=== PATIENT | male | born 1930 | race Caucasian/White ===

== ENCOUNTER 2016-05-22 16:45 | Emergency (ER) | payer MEDICARE, BC ==
[2016-05-22 20:16] LABS: Hematocrit 36 % (42-52); Mean Corpuscular HGB Conc 34 g/dl (31-36); Mean Corpuscular Hemoglobin 29 pg (27-31); Mean Corpuscular Volume 88 fL (80-94); Mean Platelet Volume 8 um3 (7.4-10.4); Red Blood Count 4.07 10^6/ul (4.0-5.4); Red Cell Distribution Width 15 % (10.5-15); White Blood Count 6.9 10^3/ul (3.5-10.8)
--- NOTE | 2016-05-22 20:26 | RAD ---
Indication: CHF. 2 views of the chest are reviewed. Tortuous descending aorta is noted. Heart is of normal size and configuration. Lung reyes appear hyperinflated. No alveolar consolidation is noted. IMPRESSION: Hyperinflated lung reyes with bibasilar atelectasis.
[2016-05-22 20:28] LABS: Albumin 3.8 g/dL (3.2-5.2); BUN/Creatinine Ratio 21.7 (8-20); Calcium 8.9 mg/dL (8.6-10.3); EGFR African American 35.5 (>60); EGFR Non-African American 27.6 (>60); Potassium 5.3 mmol/L (3.5-5.0); Total Bilirubin 0.8 mg/dL (0.2-1.0); Total Protein 6.8 g/dL (6.4-8.9)
[2016-05-22 20:30] LABS: Troponin I 0.03 ng/mL (<0.04)
[2016-05-22 21:48] VITALS: BP 120/71
--- NOTE | 2016-05-22 22:52 | ED ---
Srinivasan Noguera Adam, scribed for Shayan Pro MD on 05/22/16 at 1944 . Lower Extremity - HPI Summary HPI Summary: Pt is an 86 year old male presenting with worsening edema in both lower extremities. Pt's family consulted with Dr. Denney at a regular appt today who was concerned about possible edema in the pt's lungs as well. Pt is on Lasix. He sleeps with two pillows and has not changed his sleeping position recently. The staff at his assisted living facility has noticed that he sometimes wakes up and moves from the bed to go sit in a chair. Pt denies any SOB. PMHx of dementia and mitral valve prolapse. - History of Current Complaint Chief Complaint: EDExtremityLower Stated Complaint: ANKLE SWELLING Time Seen by Provider: 05/22/16 19:25 Hx Obtained From: Patient Onset/Duration: Still Present Severity Initially: Moderate Severity Currently: Moderate Timing: Constant Location: Is Discrete @ - BLE edema Associated Signs And Symptoms: Positive: Negative Aggravating Factor(s): Nothing Alleviating Factor(s): Nothing Able to Bear Weight: Yes - Allergies/Home Medications Allergies/Adverse Reactions: Allergies Allergy/AdvReac Type Severity Reaction Status Date / Time No Known Allergies Allergy Verified 02/25/14 15:26 PMH/Surg Hx/FS Hx/Imm Hx Endocrine/Hematology History: Reports: Hx Anemia Denies: Hx Diabetes Cardiovascular History: Reports: Hx Congestive Heart Failure, Hx Hypercholesterolemia, Hx Hypertension, Hx Valvular Heart Disease - mitral valve dx, Other Cardiovascular Problems/Disorders Respiratory History: Reports: Hx Pleural Effusion GI History: Reports: Hx Gastroesophageal Reflux Disease History: Reports: Hx Benign Prostatic Hyperplasia Musculoskeletal History: Reports: Hx Arthritis, Hx Gout Sensory History: Reports: Hx Contacts or Glasses Opthamlomology History: Reports: Hx Contacts or Glasses Neurological History: Reports: Hx Dementia - Surgical History Surgery Procedure, Year, and Place: right knee replaced - Immunization History Date of Tetanus Vaccine: Unk Date of Influenza Vaccine: Unk Infectious Disease History: No Infectious Disease History: Denies: Traveled Outside the [place] in Last 30 Days - Family History Known Family History: Positive: Unknown - Pt has dementia - Social History Occupation: Retired Lives: Assisted Living Alcohol Use: Occasionally Hx Substance Use: No Substance Use Type: Reports: None Hx Tobacco Use: Yes Smoking Status (MU): Former Smoker Type: Cigarettes Length of Time of Smoking/Using Tobacco: 30 years. Have You Smoked in the Last Year: No Review of Systems Constitutional: Negative Negative: Fever Negative: Shortness Of Breath Positive: Edema - BLE All Other Systems Reviewed And Are Negative: Yes Physical Exam - Summary Physical Exam Summary: General: Comfortable, pleasant, alert, jovial. HEENT: Moist mucosa, STORMY. Neck: Soft, supple, no adenopathy, no edema, no JVD. Heart: No murmurs, rubs, or gallops. Lungs: Good air movement throughout, no rales, scattered rhonchi. Abdominal: Soft, flat, nontender. Extremities: Pitting edema up to mid cruz, no calf tenderness, calves are soft. Neuro: Alert and oriented x 3. Psych: Logical, coherent. Triage Information Reviewed: Yes Vital Signs On Initial Exam: Initial Vitals Temp Pulse Resp BP Pulse Ox 98 F 35 18 145/44 95 05/22/16 17:37 05/22/16 17:37 05/22/16 17:37 05/22/16 17:37 05/22/16 17:37 Vital Signs Reviewed: Yes Diagnostics - Vital Signs Vital Signs Temp Pulse Resp BP Pulse Ox 05/22/16 17:37 98 F 35 18 145/44 95 - Laboratory Lab Results: Lab Results 05/22/16 05/22/16 05/22/16 Range/Units 20:00 20:00 20:00 WBC 6.9 (3.5-10.8) 10^3/ul RBC 4.07 (4.0-5.4) 10^6/ul Hgb 12.0 L (14.0-18.0) g/dl Hct 36 L (42-52) % MCV 88 (80-94) fL MCH 29 (27-31) pg MCHC 34 (31-36) g/dl RDW 15 (10.5-15) % Plt Count 151 (150-450) 10^3/ul MPV 8 (7.4-10.4) um3 Neut % (Auto) 83.0 (38-83) % Lymph % (Auto) 8.2 L (25-47) % [place] % (Auto) 6.8 (1-9) % Eos % (Auto) 1.5 (0-6) % Baso % (Auto) 0.5 (0-2) % Absolute Neuts (auto) 5.8 (1.5-7.7) 10^3/ul Absolute Lymphs (auto) 0.6 L (1.0-4.8) 10^3/ul Absolute Monos (auto) 0.5 (0-0.8) 10^3/ul Absolute Eos (auto) 0.1 (0-0.6) 10^3/ul Absolute Basos (auto) 0 (0-0.2) 10^3/ul Absolute Nucleated RBC 0 10^3/ul Nucleated RBC % 0 Sodium 132 L (133-145) mmol/L Potassium 5.3 H (3.5-5.0) mmol/L Chloride 97 L (101-111) mmol/L Carbon Dioxide 27 (22-32) mmol/L Anion Gap 8 (2-11) mmol/L BUN 49 H (6-24) mg/dL Creatinine 2.26 H (0.67-1.17) mg/dL Est GFR ( Amer) 35.5 (>60) Est GFR (Non-Af Amer) 27.6 (>60) BUN/Creatinine Ratio 21.7 H (8-20) Glucose 154 H (70-100) mg/dL Calcium 8.9 (8.6-10.3) mg/dL Total Bilirubin 0.80 (0.2-1.0) mg/dL AST 16 (13-39) U/L ALT 15 (7-52) U/L Alkaline Phosphatase 92 (34-104) U/L Troponin I 0.03 (<0.04) ng/mL B-Natriuretic Peptide 384 H ( - 100) pg/mL Total Protein 6.8 (6.4-8.9) g/dL Albumin 3.8 (3.2-5.2) g/dL Globulin 3.0 (2-4) g/dL Albumin/Globulin Ratio 1.3 (1-3) Result Diagrams: 05/22/16 20:00 05/22/16 20:00 Lab Statement: Any lab studies that have been ordered have been reviewed, and results considered in the medical decision making process. - Radiology CXR Radiology Interpretation Completed By: Radiologist - IMPRESSION: Hyperinflated lung reyes with bibasilar atelectasis. - Additional Comments Diagnostic Additional Comments: Troponin I - 0.03 Lower Extremity Course/Dx - Course Assessment/Plan: He presents with increased swelling in the bilateral lower extremities. This has been slowly progressing. He has been on Lasix for quite some time. Our concern was that he may have atelectasis or CHF or fluid in the lungs. Work-up essentially normal. BNP mildly elevated but lower than previous ones we have looked up. We talked about compression stockings. We will not change his Lasix dosage for now. - Diagnoses Provider Diagnoses: Swelling Discharge - Discharge Plan Condition: Fair Disposition: HOME Patient Education Materials: Leg Edema (ED) Referrals: Elfego FRENCH,Peter Velazquez [Medical Doctor] - The documentation as recorded by the Srinivasan adler Adam accurately reflects the service I personally performed and the decisions made by me, Shayan Pro MD.
== END 2016-05-22 21:34 | disposition home or self-care (01) ==
LOC: ED 16:45
DX: R60.0 Localized edema (principal); Z87.891 Personal history of nicotine dependence
CPT/HCPCS: 36415; 71020; 80053; 83880; 84484; 85025; 99282

== ENCOUNTER 2016-06-12 09:35 | Emergency (ER) | payer MEDICARE, BC ==
[2016-06-12 11:09] LABS: Hematocrit 33 % (42-52); Hemoglobin 11.3 g/dl (14.0-18.0); Mean Corpuscular HGB Conc 34 g/dl (31-36); Mean Corpuscular Hemoglobin 29 pg (27-31); Mean Corpuscular Volume 86 fL (80-94); Mean Platelet Volume 8 um3 (7.4-10.4); Red Blood Count 3.88 10^6/ul (4.0-5.4); Red Cell Distribution Width 14 % (10.5-15); White Blood Count 12.7 10^3/ul (3.5-10.8)
[2016-06-12 11:23] LABS: Albumin 3.6 g/dL (3.2-5.2); BUN/Creatinine Ratio 23.8 (8-20); Calcium 8.5 mg/dL (8.6-10.3); EGFR African American 40.4 (>60); EGFR Non-African American 31.4 (>60); Globulin 3.2 g/dL (2-4); Magnesium 1.9 mg/dL (1.9-2.7); Potassium 5.5 mmol/L (3.5-5.0); Total Bilirubin 0.7 mg/dL (0.2-1.0); Total Protein 6.8 g/dL (6.4-8.9)
[2016-06-12 11:27] LABS: Troponin I 0.06 ng/mL (<0.04)
[2016-06-12 11:30] LABS: TSH (Thyroid Stimulating Horm) 2.35 mcIU/mL (0.34-5.60)
--- NOTE | 2016-06-12 13:18 | RAD ---
Indication: Syncope. 2 views of the chest are reviewed. Comparison is made with previous exam dated May 22, 2016. Cardiomegaly is noted. Lung reyes appear hyperinflated. Blunting of the right costophrenic angle likely represents some chronic pleural changes as it has been present previously. Bibasilar atelectasis is noted. No definite pneumonia is identified. IMPRESSION: Hyperinflated lung reyes with chronic pleural changes and bibasilar atelectasis. No definite pneumonia is identified.
[2016-06-12 14:38] LABS: Urine Bilirubin Negative (Negative); Urine Glucose Negative (Negative); Urine Nitrite Negative (Negative)
[2016-06-12 15:26] VITALS: BP 116/47
--- NOTE | 2016-06-12 16:02 | ED ---
Denis Noguera Benjamin, scribed for Donnell Wise MD on 06/12/16 at 1106 . Syncope/Near Syncope - HPI Summary HPI Summary: 86yo male BIB EMS for a witnessed syncopal episode after weakness. Pt reports not recalling the episode. Per EMT, pt was in respiratory distress and in dysrhythmia en route. Pt is now back to normal baseline. - History Of Current Complaint Chief Complaint: EDRespiratoryDistress Time Seen by Provider: 06/12/16 10:37 Hx Obtained From: Patient, Family/Senior Game Developer - daughter Onset/Duration: Sudden Onset, Resolved Timing: Intermittent Episode Lasting Context: Witnessed, Loss Of Consciousness Activity At Onset: Exertion - walking out of bathroom Associated Head Trauma: No Aggravating Factor(s): Nothing Alleviating Factor(s): Nothing Associated Signs And Symptoms: Shortness Of Breath, Other - dysrythmia - Allergies/Home Medications Allergies/Adverse Reactions: Allergies Allergy/AdvReac Type Severity Reaction Status Date / Time No Known Allergies Allergy Verified 06/12/16 09:48 Home Medications: Home Medications Magnesium Oxide TAB* [MagOx 400 TAB*] 400 mg PO DAILY 06/12/16 [History Confirmed 06/12/16] Tamsulosin CAP* [Flomax CAP*] 0.4 mg PO BEDTIME 06/12/16 [History Confirmed 01/18] PMH/Surg Hx/FS Hx/Imm Hx Endocrine/Hematology History: Reports: Hx Anemia Denies: Hx Diabetes Cardiovascular History: Reports: Hx Congestive Heart Failure, Hx Hypercholesterolemia, Hx Hypertension, Hx Valvular Heart Disease - mitral valve dx, Other Cardiovascular Problems/Disorders Respiratory History: Reports: Hx Pleural Effusion GI History: Reports: Hx Gastroesophageal Reflux Disease History: Reports: Hx Benign Prostatic Hyperplasia Musculoskeletal History: Reports: Hx Arthritis, Hx Gout Sensory History: Reports: Hx Contacts or Glasses Opthamlomology History: Reports: Hx Contacts or Glasses Neurological History: Reports: Hx Dementia - Surgical History Surgery Procedure, Year, and Place: right knee replaced - Immunization History Date of Tetanus Vaccine: Unk Date of Influenza Vaccine: Unk Infectious Disease History: No Infectious Disease History: Denies: Traveled Outside the [place] in Last 30 Days - Family History Known Family History: Positive: Unknown - Pt has dementia - Social History Alcohol Use: None Alcohol Amount: 2 beers/day Hx Substance Use: No Substance Use Type: Reports: None Hx Tobacco Use: Yes Smoking Status (MU): Former Smoker Type: Cigarettes Length of Time of Smoking/Using Tobacco: 30 years. Have You Smoked in the Last Year: No Review of Systems Constitutional: Negative Eyes: Negative ENT: Negative Positive: Palpitations Positive: Shortness Of Breath Gastrointestinal: Negative Genitourinary: Negative Musculoskeletal: Negative Skin: Negative Positive: Weakness, Syncope Psychological: Normal All Other Systems Reviewed And Are Negative: Yes Physical Exam Triage Information Reviewed: Yes Vital Signs On Initial Exam: Initial Vitals Temp Pulse Resp BP Pulse Ox 97.7 F 67 20 117/47 100 06/12/16 09:49 06/12/16 09:49 06/12/16 09:49 06/12/16 09:49 06/12/16 09:49 Vital Signs Reviewed: Yes Appearance: Positive: Well-Appearing, No Pain Distress, Well-Nourished Skin: Positive: Warm, Skin Color Reflects Adequate Perfusion, Dry Head/Face: Positive: Normal Head/Face Inspection Eyes: Positive: Normal ENT: Positive: Hearing grossly normal, Pharynx normal, TMs normal, Other - dry mucous membrane Neck: Positive: Supple, Nontender Respiratory/Lung Sounds: Positive: Other - 3rd way up crackles bilaterally Cardiovascular: Positive: IRR Abdomen Description: Positive: Nontender, No Organomegaly, Soft Bowel Sounds: Positive: Present Musculoskeletal: Positive: Strength/ROM Intact Neurological: Positive: Sensory/Motor Intact, Alert, Oriented to Person Place, Time, CN Intact II-III Psychiatric: Positive: Affect/Mood Appropriate - [place] Coma Scale Coma Scale Total: 14 Diagnostics - Vital Signs Vital Signs Temp Pulse Resp BP Pulse Ox 06/12/16 10:30 58 14 123/44 93 06/12/16 10:00 68 22 103/37 95 06/12/16 09:51 22 06/12/16 09:50 117/47 06/12/16 09:49 97.7 F 67 20 117/47 100 - Laboratory Lab Results: Lab Results 06/12/16 06/12/16 06/12/16 Range/Units 09:10 09:10 09:10 WBC 12.7 H (3.5-10.8) 10^3/ul RBC 3.88 L (4.0-5.4) 10^6/ul Hgb 11.3 L (14.0-18.0) g/dl Hct 33 L (42-52) % MCV 86 (80-94) fL MCH 29 (27-31) pg MCHC 34 (31-36) g/dl RDW 14 (10.5-15) % Plt Count 252 (150-450) 10^3/ul MPV 8 (7.4-10.4) um3 Neut % (Auto) 90.3 H (38-83) % Lymph % (Auto) 2.9 L (25-47) % [place] % (Auto) 5.9 (1-9) % Eos % (Auto) 0.5 (0-6) % Baso % (Auto) 0.4 (0-2) % Absolute Neuts (auto) 11.5 H (1.5-7.7) 10^3/ul Absolute Lymphs (auto) 0.4 L (1.0-4.8) 10^3/ul Absolute Monos (auto) 0.8 (0-0.8) 10^3/ul Absolute Eos (auto) 0.1 (0-0.6) 10^3/ul Absolute Basos (auto) 0 (0-0.2) 10^3/ul Absolute Nucleated RBC 0 10^3/ul Nucleated RBC % 0 Sodium 124 L (133-145) mmol/L Potassium 5.5 H (3.5-5.0) mmol/L Chloride 92 L (101-111) mmol/L Carbon Dioxide 26 (22-32) mmol/L Anion Gap 6 (2-11) mmol/L BUN 48 H (6-24) mg/dL Creatinine 2.02 H (0.67-1.17) mg/dL Est GFR ( Amer) 40.4 (>60) Est GFR (Non-Af Amer) 31.4 (>60) BUN/Creatinine Ratio 23.8 H (8-20) Glucose 125 H (70-100) mg/dL Lactic Acid 1.1 (0.5-2.0) mmol/L Calcium 8.5 L (8.6-10.3) mg/dL Magnesium 1.9 (1.9-2.7) mg/dL Total Bilirubin 0.70 (0.2-1.0) mg/dL AST 16 (13-39) U/L ALT 18 (7-52) U/L Alkaline Phosphatase 116 H (34-104) U/L Troponin I 0.06 H* (<0.04) ng/mL B-Natriuretic Peptide ( - 100) pg/mL Total Protein 6.8 (6.4-8.9) g/dL Albumin 3.6 (3.2-5.2) g/dL Globulin 3.2 (2-4) g/dL Albumin/Globulin Ratio 1.1 (1-3) TSH 2.35 (0.34-5.60) mcIU/mL Urine Color Urine Appearance Urine pH (5-9) Ur Specific [place] (1.010-1.030) Urine Protein (Negative) Urine Ketones (Negative) Urine Blood (Negative) Urine Nitrate (Negative) Urine Bilirubin (Negative) Urine Urobilinogen (Negative) Ur Leukocyte Esterase (Negative) Urine Glucose (Negative) 06/12/16 06/12/16 06/12/16 Range/Units 09:10 13:52 14:28 WBC (3.5-10.8) 10^3/ul RBC (4.0-5.4) 10^6/ul Hgb (14.0-18.0) g/dl Hct (42-52) % MCV (80-94) fL MCH (27-31) pg MCHC (31-36) g/dl RDW (10.5-15) % Plt Count (150-450) 10^3/ul MPV (7.4-10.4) um3 Neut % (Auto) (38-83) % Lymph % (Auto) (25-47) % [place] % (Auto) (1-9) % Eos % (Auto) (0-6) % Baso % (Auto) (0-2) % Absolute Neuts (auto) (1.5-7.7) 10^3/ul Absolute Lymphs (auto) (1.0-4.8) 10^3/ul Absolute Monos (auto) (0-0.8) 10^3/ul Absolute Eos (auto) (0-0.6) 10^3/ul Absolute Basos (auto) (0-0.2) 10^3/ul Absolute Nucleated RBC 10^3/ul Nucleated RBC % Sodium (133-145) mmol/L Potassium (3.5-5.0) mmol/L Chloride (101-111) mmol/L Carbon Dioxide (22-32) mmol/L Anion Gap (2-11) mmol/L BUN (6-24) mg/dL Creatinine (0.67-1.17) mg/dL Est GFR ( Amer) (>60) Est GFR (Non-Af Amer) (>60) BUN/Creatinine Ratio (8-20) Glucose (70-100) mg/dL Lactic Acid (0.5-2.0) mmol/L Calcium (8.6-10.3) mg/dL Magnesium (1.9-2.7) mg/dL Total Bilirubin (0.2-1.0) mg/dL AST (13-39) U/L ALT (7-52) U/L Alkaline Phosphatase (34-104) U/L Troponin I 0.04 H* (<0.04) ng/mL B-Natriuretic Peptide 916 H ( - 100) pg/mL Total Protein (6.4-8.9) g/dL Albumin (3.2-5.2) g/dL Globulin (2-4) g/dL Albumin/Globulin Ratio (1-3) TSH (0.34-5.60) mcIU/mL Urine Color Yellow Urine Appearance Clear Urine pH 6.0 (5-9) Ur Specific [place] 1.011 (1.010-1.030) Urine Protein Negative (Negative) Urine Ketones Negative (Negative) Urine Blood Negative (Negative) Urine Nitrate Negative (Negative) Urine Bilirubin Negative (Negative) Urine Urobilinogen Negative (Negative) Ur Leukocyte Esterase Negative (Negative) Urine Glucose Negative (Negative) Result Diagrams: 06/12/16 09:10 06/12/16 09:10 Lab Statement: Any lab studies that have been ordered have been reviewed, and results considered in the medical decision making process. - Radiology CXR Xray Interpretation: No Acute Changes Radiology Interpretation Completed By: Radiologist - EKG 0941. Cardiac Rate: NL - 71bpm EKG Rhythm: Atrial Fibrillation Course/Dx Course Of Treatment: Mr. Figueroa had a near syncopal episode after urinating this AM. He was coming out of the BR and told his caregiver that he needed to sit down right away and he was assisted down. He never lost consciousness. He had no C/O on arrival to the ED. His W/U was negative here. He did have a low indeterminant Trop initially here at 0.06. It has been up in the past and was repeated 4 hours later and returned 0.04. He recently was hospitalized for peripheral edema and started on furosemide. He was given some fluid in the EMS because "he looked dry". I think that he likely had micturition syncope complicated by mild dehydration. I recommended that they hold his lasix and F/ U with his PMD. - Diagnoses Provider Diagnoses: Near syncope, Dehydration Discharge - Discharge Plan Condition: Stable Disposition: HOME Patient Education Materials: Near Syncope (ED) Referrals: Session Wyatt KING [Primary Care Provider] - The documentation as recorded by the Denis adler Benjamin accurately reflects the service I personally performed and the decisions made by me, Donnell Wise MD.
== END 2016-06-12 15:17 | disposition home or self-care (01) ==
LOC: ED 09:35
DX: R55 Syncope and collapse (principal); E86.0 Dehydration; R06.02 Shortness of breath; R00.2 Palpitations; I49.9 Cardiac arrhythmia, unspecified; Z87.891 Personal history of nicotine dependence; R53.1 Weakness
CPT/HCPCS: 36415; 71020; 80053; 81003; 83605; 83735; 83880; 84443; 84484; 85025; 93005; 99283

== ENCOUNTER 2016-06-19 15:09 | Inpatient (IN) | payer MEDICARE, BC ==
[2016-06-19 16:06] LABS: Hematocrit 32 % (42-52); Hemoglobin 10.5 g/dl (14.0-18.0); Mean Corpuscular HGB Conc 33 g/dl (31-36); Mean Corpuscular Hemoglobin 29 pg (27-31); Mean Corpuscular Volume 87 fL (80-94); Mean Platelet Volume 8 um3 (7.4-10.4); Red Blood Count 3.68 10^6/ul (4.0-5.4); Red Cell Distribution Width 15 % (10.5-15); White Blood Count 6.8 10^3/ul (3.5-10.8)
--- NOTE | 2016-06-19 16:20 | RAD ---
INDICATION: Weakness COMPARISON: June 12, 2016 TECHNIQUE: An AP portable view obtained at 1600 hours is submitted. FINDINGS: Bones/Soft Tissues: There are no acute bony findings. Cardiomediastinal: The cardiac silhouette is mildly prominent. Lungs: There is hyperinflation with minimal basilar ectasis. Pleura: Mild blunting of the right costophrenic angle perhaps related to small amount of pleural fluid. Other: None IMPRESSION: HYPERINFLATION. MINIMAL BASILAR ABNORMALITIES. NO ACUTE FINDINGS
[2016-06-19 16:22] LABS: Troponin I 0.64 ng/mL (<0.04)
[2016-06-19 16:26] LABS: Albumin 3.6 g/dL (3.2-5.2); BUN/Creatinine Ratio 29.8 (8-20); Calcium 8.7 mg/dL (8.6-10.3); EGFR African American 30.4 (>60); EGFR Non-African American 23.7 (>60); Globulin 3.2 g/dL (2-4); Total Bilirubin 0.7 mg/dL (0.2-1.0); Total Protein 6.8 g/dL (6.4-8.9)
[2016-06-19 16:31] LABS: Potassium 5.8 mmol/L (3.5-5.0)
[2016-06-19] MEDS ORDERED: Aspirin TAB* 325 MG PO ONE (16:42)
[2016-06-19] MEDS ORDERED: NS 0.9% 1000 ML* 1,000 ML IV ONE (16:43)
[2016-06-19] MEDS ORDERED: Nitroglycerin 0.4 MG/HR PATCH* (10 MG) TRANSDERM ONE (17:00)
[2016-06-19] MEDS ORDERED: Furosemide IV* 10 MG/ML VIAL (40 MG) IV SLOW PU ONE (17:00)
[2016-06-19] MEDS ORDERED: Morphine INJ* 2 MG/ML 1 ML CARPUJECT IV PRN (17:46)
[2016-06-19] MEDS ORDERED: LORazepam INJ* 2 MG/ML 1 ML VIAL IV PUSH PRN (17:46)
[2016-06-19] MEDS ORDERED: Acetaminophen TAB* 325 MG PO PRN (17:47)
[2016-06-19] MEDS ORDERED: Albuterol 2.5 MG/3 ML NEB.SOL* (0.083%) INH PRN (18:15)
[2016-06-19 18:35] LABS: Urine Bilirubin Negative (Negative); Urine Glucose Negative (Negative); Urine Nitrite Negative (Negative)
[2016-06-19] MEDS ORDERED: Simvastatin TAB(NF) 20 MG TAB PO SCH (21:00)
[2016-06-19] MEDS: Tamsulosin CAP* 0.4 MG PO SCH (21:24)
--- NOTE | 2016-06-19 22:39 | HP ---
HISTORY AND PHYSICAL: DATE OF ADMISSION: 06/19/16 ATTENDING PHYSICIAN: Dr. Gil * (report dictated by Robert Cardenas, ZARA). PRIMARY CARE PROVIDER: Dr. Wyatt Denney. CHIEF COMPLAINT: The patient was sent from primary care provider's office for concern for dehydration. HISTORY OF PRESENT ILLNESS: Mr. Figueroa is an 86-year-old male with a past medical history of significant dementia, hypertension, hyperlipidemia and systolic congestive heart failure who presents to the emergency department today from his primary care office with a report of increased falls, decreased appetite, loose stools, lower extremity edema. In the emergency department, he is noted to appear dehydrated with a troponin of 0.64. This is the third visit to the emergency department in 1 month. Last week, he came to the emergency department after a near syncopal episode, was given some IV fluids and was sent back to the [facility] where the patient lives. Today in the emergency department, the patient is accompanied by his son, Hola Figueroa, and his daughter, Leonor Cadet. They are requesting comfort care measures for their father. On evaluation in the emergency department, the patient is alert, confused, in no acute distress. The patient denies shortness of breath or chest pain. The patient reports that he "feels good." The patient laughs when I ask him if he has weakness or has been experiencing diarrhea. In the emergency department, the patient was given a liter of fluid, 40 mg of IV Lasix, aspirin and a nitroglycerin patch. The patient was noted to have low blood pressures in the emergency department systolically in the 70s and 80s as well as low O2 sats in the 60s, 70s and 80s. Per son, he has historically over the past several months at [place] has been noted to have very low blood pressures. Again, I discussed with the son his laboratories, diagnostic tests, and exam findings. The patient does appear intravascularly dry; however, his chest x- ray does look like he could have possible fluid noted on chest x-ray as well as we discussed his elevated cardiac enzymes. Again, the son and the daughter are wishing for comfort care measures only and would like a hospice consult tomorrow. PAST MEDICAL HISTORY: 1. Dementia. 2. Hypertension. 3. BPH. 4. Hyperlipidemia. 5. History of congestive heart failure. HOME MEDICATIONS: 1. Albuterol HFA inhaler 2 puffs INH q.4 hours p.r.n. 2. Acetaminophen 60 mg p.o. q.4 hours p.r.n. 3. Aspirin EC low dose 81 mg p.o. daily. 4. Flomax 0.4 mg p.o. at bedtime. 5. Monopril 20 mg p.o. b.i.d. 6. Aldactone 25 mg p.o. daily. 7. Metoprolol 12.5 mg p.o. daily. 8. Zocor 20 mg p.o. at bedtime. 9. Magnesium oxide 400 mg p.o. daily. 10. Lasix 40 mg p.o. daily. ALLERGIES: No known allergies. FAMILY HISTORY: Reviewed. SOCIAL HISTORY: The patient has a history of smoking many years ago. He does not drink alcohol. 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 He is . His in 2002. He has 3 children. His son, Hola, is his healthcare proxy. He lives at the [facility]. REVIEW OF SYSTEMS: A 14-point review of systems was performed. All the pertinent positives and negatives are mentioned in the history of present illness. Please note the patient is limited with his review of systems due to his dementia. PHYSICAL EXAMINATION GENERAL APPEARANCE: An 86-year-old male lying in the emergency department stretcher alert, confused, in no acute distress. VITAL SIGNS: Temperature 97.3, heart rate 58, respirations 24, O2 sat 100%, blood pressure 84/69. HEENT: Head is normocephalic, atraumatic. Pupils equal, reactive to light. Oropharynx is clear. Dry mucous membranes. The patient wears upper and lower dentures. NECK: Supple. No cervical or supraclavicular lymphadenopathy. RESPIRATORY: Bilateral crackles to bases, otherwise clear. No accessory muscle use. CARDIAC: S1, S2. No murmurs, rubs or gallops appreciated. 1 to 2+ lower extremity edema noted. ABDOMEN: Soft, nontender, nondistended. Normal bowel sounds x4. MUSCULOSKELETAL: No clubbing or cyanosis noted. Full range of motion in all extremities. SKIN: Warm, pink, dry. Skin tear noted on the patient's forearm. NEUROLOGIC: Alert, confused, noted dementia. Sensation to extremities is intact throughout. Strength of 4/5 throughout and symmetric. Extraocular movements intact. No pronator drift. Tongue is midline. No facial droop noted. PSYCH: The patient is alert and pleasantly confused. LABORATORY DATA AND DIAGNOSTIC STUDIES: Sodium 129, potassium 5.8, chloride 96 , carbon dioxide 27, anion gap 6, BUN 77, creatinine 2.58, glucose 90, lactic acid 0.7. Calcium 8.7, total bilirubin 0.70, AST 21, ALT 22, alkaline phosphatase 107. Troponin; first troponin 0.04, second troponin 0.64. BNP 753, albumin 3.6. WBC is 6.8, HGB 10.5, HCT 32, MCV 87, MCH 29, MCHC 33, RDW 15, platelet count 210. Influenza A and B negative. EKG: Sinus bradycardia with a rate of 58. Chest x-ray: Impression, hyperinflation with minimal abnormalities. No acute findings. ASSESSMENT AND PLAN: Mr. Figueroa is an 86-year-old male with a past medical history of advanced dementia, hypertension, systolic congestive heart failure who presents to the emergency department today from the primary care provider's office with concern for dehydration with report of 3 days of increased O2 demands, no appetite, loose stools, weakness and falls. 1. Weakness/falls. It is possible this is the patient's new baseline and he is clinically declining or possibly the patient has a viral illness. Per son and daughter, the patient has been rapidly declining over the past year, but especially over the past several months. The patient has a possible non-ST elevation myocardial infarction with a troponin of 0.65. He complains of no chest pain. The patient's MOLST has been updated and he is a DNR/DNI, on comfort care measures. I have asked for a hospice consult with plan to send the patient home to [place] on hospice. 2. Hypertension. The patient's blood pressures are quite soft in the emergency department. We will hold the patient's home medications in the setting of hypotension. Per son, we can offer the patient's medications later on if appropriate and if the patient takes them. If not, the plan will be to discontinue his medications. 3. Systolic congestive heart failure. The patient does appear to have some possible interstitial edema on his chest x-ray, but does not appear to be in acute congestive heart failure. His BNP is elevated, but not as high as it has been in the past. The patient appears comfortable. Again, the patient did receive 40 mg of IV Lasix in the emergency department. If the patient has developed shortness of breath, we will treat with morphine and Ativan. 4. Dementia. Supportive. 5. Code status. DNR/DNI and comfort care measures. 6. Hospital status: OBV TIME SPENT: Approximately 60 minutes were spent on this admission. ROBERT CARDENAS NP CC: HOLGER Galvin * [id number]/CPS #: [id number]
[2016-06-20] MEDS: Aspirin EC Low Dose* 81 MG TAB.EC PO SCH (09:50)
[2016-06-20] MEDS ORDERED: Ondansetron ODT TAB* 4 MG PO PRN (10:43)
--- NOTE | 2016-06-20 14:22 | PN ---
Subjective Date of Service: 06/20/16 Interval History: Patient seen and examined at bedside. He denies CP, SOB, fever/chills, abd pain , n/v. He denies dizziness, lightheadedness. He reports some left shoulder pain. Family in room with patient (daughter Enriqueta) states that he fell on his arm. Family History: Unchanged from Admission Social History: Unchanged from Admission Past Medical History: Unchanged from Admission Objective Active Medications: Acetaminophen (Tylenol Tab*) 650 mg PO Q4H PRN PRN Reason: PAIN Albuterol (Ventolin 2.5 Mg/3 Ml Neb.Susu*) 2.5 mg INH Q4H PRN PRN Reason: SOB/WHEEZING Aspirin (Aspirin Ec Low Dose*) 81 mg PO DAILY [facility] Last Admin: 06/20/16 09:50 Dose: 81 mg Lorazepam (Ativan Inj*) 1 mg IV PUSH Q8H PRN PRN Reason: ANXIETY Morphine Sulfate (Morphine Inj (Syringe)*) 2 mg IV Q4H PRN PRN Reason: PAIN - MILD Last Admin: 06/20/16 09:55 Dose: 2 mg Multi-Ingredient Ointment (Hydrocerin*) 1 applic TOPICAL TID [facility] Ondansetron HCl (Zofran Odt Tab*) 4 mg PO Q6H PRN PRN Reason: NAUSEA/VOMITING Last Admin: 06/20/16 11:08 Dose: 4 mg Tamsulosin HCl (Flomax Cap*) 0.4 mg PO BEDTIME [facility] Last Admin: 06/19/16 21:24 Dose: 0.4 mg Vital Signs 06/19/16 06/19/16 06/19/16 18:18 18:38 19:42 Temperature 97.3 F 97.3 F 97.3 F Pulse Rate 58 56 56 Respiratory 19 16 16 Rate Blood Pressure 129/48 146/51 146/51 (mmHg) O2 Sat by Pulse 88 Oximetry 06/19/16 06/19/16 06/19/16 20:00 23:29 23:34 Temperature 98.3 F Pulse Rate 33 55 Respiratory 15 15 Rate Blood Pressure 122/28 (mmHg) O2 Sat by Pulse 96 Oximetry 06/20/16 06/20/16 06/20/16 07:24 08:00 08:28 Temperature 98.0 F Pulse Rate Respiratory 16 18 14 Rate Blood Pressure 104/28 (mmHg) O2 Sat by Pulse 97 97 Oximetry 06/20/16 06/20/16 06/20/16 09:55 10:47 10:55 Temperature 97.6 F Pulse Rate 60 Respiratory 18 17 18 Rate Blood Pressure 112/39 (mmHg) O2 Sat by Pulse 98 Oximetry 06/20/16 12:05 Temperature Pulse Rate Respiratory 18 Rate Blood Pressure (mmHg) O2 Sat by Pulse Oximetry Oxygen Devices in Use Now: None Appearance: Elderly male patient, sitting up in bed, in NAD Eyes: PERRLA Ears/Nose/Mouth/Throat: Mucous Membranes Moist Neck: NL Appearance and Movements; NL JVP Respiratory: Symmetrical Chest Expansion and Respiratory Effort, Clear to Auscultation - rales in bases Cardiovascular: NL Sounds; No Murmurs; No JVD, RRR Abdominal: NL Sounds; No Tenderness; No Distention Extremities: No Clubbing, Cyanosis - 1-2+ pitting edema Skin: No Rash or Ulcers - dry skin to BLE Neurological: - - Alert, oriented to self. Pleasantly confused. Lines/Tubes/Other Access: Clean, Dry and Intact Peripheral IV Nutrition: Taking PO's Result Diagrams: 06/19/16 15:40 06/19/16 15:40 Additional Lab and Data: Lab Results 06/19/16 06/19/16 06/19/16 Range/Units 15:40 15:40 15:40 WBC 6.8 (3.5-10.8) 10^3/ul RBC 3.68 L (4.0-5.4) 10^6/ul Hgb 10.5 L (14.0-18.0) g/dl Hct 32 L (42-52) % MCV 87 (80-94) fL MCH 29 (27-31) pg MCHC 33 (31-36) g/dl RDW 15 (10.5-15) % Plt Count 210 (150-450) 10^3/ul MPV 8 (7.4-10.4) um3 Neut % (Auto) 81.1 (38-83) % Lymph % (Auto) 7.1 L (25-47) % [place] % (Auto) 9.2 H (1-9) % Eos % (Auto) 1.8 (0-6) % Baso % (Auto) 0.8 (0-2) % Absolute Neuts (auto) 5.5 (1.5-7.7) 10^3/ul Absolute Lymphs (auto) 0.5 L (1.0-4.8) 10^3/ul Absolute Monos (auto) 0.6 (0-0.8) 10^3/ul Absolute Eos (auto) 0.1 (0-0.6) 10^3/ul Absolute Basos (auto) 0.1 (0-0.2) 10^3/ul Absolute Nucleated RBC 0.01 10^3/ul Nucleated RBC % 0.1 Sodium Pending Potassium Pending Chloride Pending Carbon Dioxide Pending Anion Gap Pending BUN Pending Creatinine Pending Est GFR ( Amer) Pending Est GFR (Non-Af Amer) Pending BUN/Creatinine Ratio Pending Glucose Pending Lactic Acid 0.7 (0.5-2.0) mmol/L Calcium Pending Total Bilirubin Pending AST Pending ALT Pending Alkaline Phosphatase Pending Troponin I 0.64 H* (<0.04) ng/mL Total Protein Pending Albumin Pending Globulin Pending Albumin/Globulin Ratio Pending Assess/Plan/Problems-Billing Assessment: Mr. Figueroa is an 86 year old male with a PMH of dementia, systolic CHF, HTN, BPH, and HLD who was referred to the ED on 06/19/16 by his PCP for evaluation and treatment of dehydration; patient was found to have an elevated troponin. Family requested hospice consult and comfort care measures only. - Patient Problems (1) Comfort measures only status Code(s): Z51.5 - ENCOUNTER FOR PALLIATIVE CARE Comment: Family reports that patient has been rapidly declining and desire no aggressive workup. Continue PRN morphine and lorazepam. Palliative care/hospice consult pending. (2) Weakness Code(s): R53.1 - WEAKNESS Comment: Concern for multiple falls at home. Family expressed wishes that patient be made comfort care and requested hospice. (3) Elevated troponin Code(s): R79.89 - OTHER SPECIFIED ABNORMAL FINDINGS OF BLOOD CHEMISTRY Comment : Troponin 0.64 in ED Per patient's family, no further cardiac workup. (4) Dementia Code(s): F03.90 - UNSPECIFIED DEMENTIA WITHOUT BEHAVIORAL DISTURBANCE Comment : Supportive care. Patient resides at [facility]; family requesting comfort care measures at this time. (5) Systolic CHF Code(s): I50.20 - UNSPECIFIED SYSTOLIC (CONGESTIVE) HEART FAILURE Comment: Does not appear to be in exacerbation. Continue PRN morphine and lorazepam for comfort. (6) BPH (benign prostatic hyperplasia) Code(s): N40.0 - BENIGN PROSTATIC HYPERPLASIA WITHOUT LOWER URINRY TRACT SYMP Comment: Continue tamsulosin. (7) DVT prophylaxis Code(s): DUB1825 - Comment: Declined, patient is comfort care. (8) DNR (do not resuscitate) Status and Disposition: Inpatient admission with plan for home with hospice.
[2016-06-20] MEDS: Moisturizing CREAM* 120 GM JAR TOPICAL SCH ×2 (15:53→20:21)
--- NOTE | 2016-06-20 17:04 | ECHO ---
Patient: MELINDA ZUNIGA [facility] Rec#: [id number] : 1930 Date: 06/20/2016 Age: 86y Height: 175 cm / 68.9 in Weight: 65 kg / 143.3 lbs Sex: M BSA: 1.79 Room#: [facility] Admit Date#: 06/19/2016 Type: Inpatient Referring: Ranjana Warner Reading: Mihir Durán DO Rental Representative: Gregorio Agee RDCS Transthoracic Echocardiogram BP: 112/39 HR: 55 Rhythm: NSR with PVCs Findings History: Dementia,HTN, BPH, CHF,HYPERLIPEMIA Technical Comments: The study quality is good. Completed 1700 Left Ventricle: The left ventricular chamber size is normal. Mild concentric left ventricular hypertrophy is observed. Global left ventricular wall motion and contractility are within normal limits. There is normal left ventricular systolic function. The estimated ejection fraction is 50-55%. There is septal flattening of the interventricular septum consistent with right ventricular volume or pressure overload. Left Atrium: The left atrium is mildly dilated. Right Ventricle: The right ventricle is moderately dilated. The right ventricular global systolic function is moderately reduced. Right Atrium: The right atrium is mildly dilated. Aortic Valve: The aortic valve is trileaflet. The aortic valve leaflets are mildly thickened. There is mild aortic regurgitation. There is no evidence of aortic stenosis. Mitral Valve: There is mitral annular calcification. The mitral valve leaflets are mildly thickened. There is mild mitral regurgitation. There is no evidence of mitral stenosis. Tricuspid Valve: There is mild tricuspid regurgitation. There is evidence of mild to moderate pulmonary hypertension. There is no tricuspid stenosis. Pulmonic Valve: The pulmonic valve appears normal. There is a trace pulmonic regurgitation. There is no pulmonic stenosis. Pericardium: There is no significant pericardial effusion. Aorta: There is no dilatation of the ascending aorta. The aortic arch is not well visualized. There is no dilation of the aortic root. Pulmonary Artery: The main pulmonary artery is not well visualized. Venous: The inferior vena cava appears normal in size. There is less than 50% respiratory change in the inferior vena cava dimension. Conclusions The left ventricular chamber size is normal. Mild concentric left ventricular hypertrophy is observed. There is normal left ventricular systolic function. The estimated ejection fraction is 50-55%. There is mild septal flattening of the interventricular septum consistent with right ventricular volume and/or pressure overload. The left atrium is mildly dilated. The right ventricle is moderately dilated. The right ventricular global systolic function is moderately reduced. The right atrium is mildly dilated. No more than mild valvular regurgitation noted. There is evidence of mild to moderate pulmonary hypertension. Compared to prior study from 09/2014, no significant changes noted. Measurements Name Value Normal Range RVIDd (AP) 2D 2.8 cm (0.9 - 2.6) RVDdMajor (2D) 4.5 cm (2.2 - 4.4) RAd ISD 4CH 6.5 cm (3.4 - 4.9) RA (A4C)W 4.4 cm (2.9 - 4.6) IVSd (2D) 0.97 cm (0.6 - 1) LVPWd (2D) 1.1 cm (0.6 - 1) LVIDd (2D) 4.7 cm (3.6 - 5.4) LVIDs (2D) 3.5 cm - LV FS (2D) 24 % (25 - 45) Aortic Annulus 2.2 cm (1.4 - 2.6) Ao root diameter (2D) 3.6 cm (2.1 - 3.5) Ascending Ao 3.3 cm (2.1 - 3.4) LA dimension (AP) 2D 4.1 cm (2.3 - 3.8) LAd ISD 4CH 6.9 cm (2.9 - 5.3) LA ISD 4CH W 3.7 cm (2.5 - 4.5) Name Value Normal Range LA ESV SP 4CH (A/L) 60 ml - LA ESV SP 2CH (A/L) 74 ml - LA ESV BP (A/L) 68 ml - LA ESV BP (A/L) index 37.87 ml/m2 - LA ESV SP 4CH (MOD) 56 ml - LA ESV SP 2CH (MOD) 71 ml - Name Value Normal Range MV E-wave Vmax 0.71 m/sec - MV deceleration time 135 msec - MV A-wave Vmax 73 m/sec - MV E:A ratio 0.97 ratio - LV septal e' Vmax 0.07 m/sec - LV lateral e' Vmax 0.07 m/sec - LV E:e' septal ratio 10.1 ratio - LV E:e' lateral ratio 10.1 ratio - Name Value Normal Range LVOT diameter 2.4 cm - LVOT Vmax 0.6 m/sec - Name Value Normal Range TR Vmax 3.1 m/sec - TR peak gradient 38 mmHg - RAP 15 mmHg - RVSP 53 mmHg - IVC diameter 2 cm - Name Value Normal Range PV Vmax 0.7 m/sec - PV peak gradient 1.97 mmHg -
[2016-06-20] MEDS: Lisinopril TAB* 10 MG PO SCH (20:19)
[2016-06-20] MEDS: Tamsulosin CAP* 0.4 MG PO SCH (20:21)
--- NOTE | 2016-06-20 20:53 | CONS ---
PALLIATIVE CARE CONSULTATION: DATE OF CONSULT: 06/20/16 PRIMARY CARE PHYSICIAN: HOLGER Galvin. REQUESTING PHYSICIAN FOR CONSULTATION: Alysha Walters NP. REASON FOR CONSULTATION: Evaluation for palliative care and hospice. HISTORY OF PRESENT ILLNESS: This is an 86-year-old male with a past medical history of gwzs-nt-kepuedir dementia, nonischemic cardiomyopathy, on chronic oxygen who presented to the emergency room from his primary care office for concern for dehydration on the . The two children and the son-in-law are at the bedside providing most of the history. The son states this is the patient's third visit to the hospital in the past month. The prior two was, one was an ER visit for a lower extremity edema and one was a week ago for dehydration and a syncopal episode. The son has noticed a steady decline over the past 2 months with no energy and a decrease in appetite and he has lost about 20 pounds over the past 2 years. On this admission when the patient presented to the emergency room, he denied any pain. He states he felt good. He was pleasantly confused. On admission, he was noted to have an elevated troponin of 0.64, acute on chronic kidney injury, with an elevated potassium of 5.8. It was felt that his weakness and deconditioning could be secondary to possible NSTEMI. The patient's family wants him to be comfortable because of his decline and his frequent ER visits and wants to evaluate him for his eligibility for hospice. The patient does ambulate with a walker, but on good days he often ambulates independently. His appetite is adequate. He states that he had a good lunch here in the hospital. The patient denies any pain or shortness of breath. He is able to recognize his family and have interaction with them. The patient is not sure why he is here or where he is, but is able to follow commands and answer most of my questions appropriately. Otherwise, remaining review of systems is negative. PAST MEDICAL HISTORY: 1. Vgvv-ei-vlnoqyfv dementia. 2. Hypertension. 3. BPH. 4. Hyperlipidemia. 5. History of nonischemic cardiomyopathy, on continuous oxygen of 2 L. INPATIENT MEDICATIONS: 1. Tylenol 650 mg every 6 hours as needed. 2. Albuterol 2.5 mg inhaled every 4 hours as needed. 3. Aspirin 81 mg p.o. daily. 4. Morphine 2 mg every 4 hours as needed. 5. Zofran 4 mg every 6 hours as needed for nausea. 6. Tamsulosin 0.4 mg at bedtime. ALLERGIES: No known drug allergies. FAMILY HISTORY: Reviewed and noncontributory. SOCIAL HISTORY: The patient resides at the [facility], an assisted living facility. He is dependent on most of his ADLs where they assist with his care. He has a remote history of smoking. No alcohol history. 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 He is . His in 2002. He has 3 grown children. His son, Hola Figueroa, is his healthcare proxy. Phone number is . As mentioned, he does mostly ambulate with a walker. Sometimes he ambulates independently. MOLST is ordered as DNR/DNI comfort measures only with no re-hospitalization, no IV fluids, no IV antibiotics. REVIEW OF SYSTEMS: Limited due to dementia, but otherwise, as mentioned in the HPI. PHYSICAL EXAM: Vitals: Temperature 97.6, pulse rate 60, respiratory rate 17, oxygen saturation 98% on 2 L, blood pressure 112/39. General: No acute distress. Frail elderly gentleman pleasantly confused, with his family at the bedside. Neck: Supple. No lymphadenopathy. HEENT: Oropharynx, mucous membranes moist. No erythema. Pupils are equal and reactive. Anicteric. Head normocephalic. Cardiac: Irregularly irregular rate and rhythm. Soft systolic murmur heard most prominent in the left sternal base. Abdomen: Soft, nontender. Extremities: +2 pretibial edema. Neurologic: Alert and oriented x1, oriented to self only. No gross focal neurologic deficits. DIAGNOSTIC STUDIES/LAB DATA: White count 6.8, hemoglobin 10.5, hematocrit 32, platelets 210. Sodium 129, potassium 5.8, chloride 26, BUN 27, creatinine 2.58. Troponin 0.64. BNP 753. Chest x-ray shows hyperinflation, minimal basilar abnormalities, no acute findings. ASSESSMENT: This is an 86-year-old male with a past medical history of dementia , nonischemic cardiomyopathy who presents to the emergency room from his PCP's office for concerns for dehydration and decline over the past 2 months. The patient was found to have an elevated troponin of potentially a non-ST elevation myocardial infarction. There is no repeat troponin to see what the trend is. The patient denies any chest pain or shortness of breath and is pleasantly confused. I spoke with the family regarding his dementia. He does not meet eligibility for hospice; however, if he does have a reduced ejection fraction from this potential non-ST elevation myocardial infarction that he was admitted for in combination with his chronic renal insufficiency then he may be a candidate for hospice. They were interested in him going back to [facility] with hospice. We discussed that if he is on comfort measures that this would be ideal, but if he does not, the criteria for hospice is challenging to keep him on comfort measures without the assistance of hospice available oncology physician assistant for him and his family. I did put in order for an echo to help with further prognostic information and if he is not eligible, then he would be eligible for the path referral program, follow palliative care as with his comorbidities and his age, it is evident that he will gradually decline and should be reevaluated on a routine basis for his eligibility for hospice. I also did discontinue his benzodiazepine as this can make his confusion and dementia worse. Thank you for this consultation. I will follow along with you. TIME SPENT: Greater than 60 minutes spent doing the consultation, more than half the time spent in direct patient contact. CC: HOLGER Galvin* [id number]/EFRA #: [id number] RAGHAVENDRA
[2016-06-21] MEDS ORDERED: Influenza VAC *QUAD* 2016-17* 0.5 ML SYRINGE IM ONE (09:00)
[2016-06-21] MEDS: Aspirin EC Low Dose* 81 MG TAB.EC PO SCH (09:38)
[2016-06-21] MEDS: Metoprolol Succinate XL TAB* 25 MG PO SCH (09:38)
[2016-06-21] MEDS: Furosemide TAB* 40 MG PO SCH (09:38)
[2016-06-21] MEDS: Magnesium Oxide TAB* 400 MG PO SCH (09:38)
[2016-06-21] MEDS: Spironolactone TAB* 25 MG PO SCH (09:45)
[2016-06-21] MEDS: Lisinopril TAB* 10 MG PO SCH ×2 (09:45→22:56)
[2016-06-21] MEDS: Moisturizing CREAM* 120 GM JAR TOPICAL SCH ×3 (09:45→22:52)
--- NOTE | 2016-06-21 13:53 | PN ---
Subjective Date of Service: 06/21/16 Interval History: Patient seen and examined at bedside. He is OOB to chair with a bed alarm. When asked if he is having any pain or discomfort, he states, "I'm just reading the paper." When I specifically inquired about chest pain or breathing, he states, "I'm doing great! Thanks for asking." No nursing concerns other than impulsivity and concern for falls. Family History: Unchanged from Admission Social History: Unchanged from Admission Past Medical History: Unchanged from Admission Objective Active Medications: Acetaminophen (Tylenol Tab*) 650 mg PO Q4H PRN PRN Reason: PAIN Albuterol (Ventolin 2.5 Mg/3 Ml Neb.Susu*) 2.5 mg INH Q4H PRN PRN Reason: SOB/WHEEZING Aspirin (Aspirin Ec Low Dose*) 81 mg PO DAILY [facility] Last Admin: 06/21/16 09:38 Dose: 81 mg Furosemide (Lasix Tab*) 40 mg PO DAILY [facility] Last Admin: 06/21/16 09:38 Dose: 40 mg Lisinopril (Prinivil Tab*) 20 mg PO BID [facility] PRN Reason: Protocol Last Admin: 06/21/16 09:45 Dose: Not Given Magnesium Oxide (Magox 400 Tab*) 400 mg PO DAILY [facility] Last Admin: 06/21/16 09:38 Dose: 400 mg Metoprolol Succinate (Toprol Xl Tab*) 12.5 mg PO DAILY [facility] Last Admin: 06/21/16 09:38 Dose: 12.5 mg Morphine Sulfate (Morphine Inj (Syringe)*) 2 mg IV Q4H PRN PRN Reason: PAIN - MILD Last Admin: 06/20/16 09:55 Dose: 2 mg Multi-Ingredient Ointment (Hydrocerin*) 1 applic TOPICAL TID [facility] Last Admin: 06/21/16 09:45 Dose: 1 applic Ondansetron HCl (Zofran Odt Tab*) 4 mg PO Q6H PRN PRN Reason: NAUSEA/VOMITING Last Admin: 06/20/16 11:08 Dose: 4 mg Spironolactone (Aldactone Tab*) 25 mg PO DAILY [facility] Last Admin: 06/21/16 09:45 Dose: Not Given Tamsulosin HCl (Flomax Cap*) 0.4 mg PO BEDTIME [facility] Last Admin: 06/20/16 20:21 Dose: 0.4 mg Vital Signs 02/17/17 02/17/17 02/17/17 16:00 20:00 20:18 Temperature Pulse Rate Respiratory 20 Rate Blood Pressure 94/30 (mmHg) O2 Sat by Pulse 98 95 Oximetry 06/21/16 06/21/16 06/21/16 00:00 00:09 08:00 Temperature 97.9 F Pulse Rate 119 Respiratory 16 Rate Blood Pressure 74/57 105/45 (mmHg) O2 Sat by Pulse 96 95 Oximetry 06/21/16 09:13 Temperature 97.8 F Pulse Rate Respiratory 16 Rate Blood Pressure 105/48 (mmHg) O2 Sat by Pulse 95 Oximetry Oxygen Devices in Use Now: None Appearance: Elderly male, sitting in chair, in NAD Eyes: PERRLA Ears/Nose/Mouth/Throat: Clear Oropharnyx, Mucous Membranes Moist Neck: NL Appearance and Movements; NL JVP Respiratory: Symmetrical Chest Expansion and Respiratory Effort, Clear to Auscultation Cardiovascular: NL Sounds; No Murmurs; No JVD - irregularly irregular , - - +1- 2 pretibial edema Abdominal: NL Sounds; No Tenderness; No Distention Extremities: No Clubbing, Cyanosis Skin: No Rash or Ulcers Neurological: - - Alert, oriented to self. Pleasantly confused Lines/Tubes/Other Access: Clean, Dry and Intact Peripheral IV Nutrition: Taking PO's Result Diagrams: 06/19/16 15:40 06/19/16 15:40 Additional Lab and Data: Lab Results 06/19/16 06/19/16 06/19/16 Range/Units 15:40 15:40 15:40 WBC 6.8 (3.5-10.8) 10^3/ul RBC 3.68 L (4.0-5.4) 10^6/ul Hgb 10.5 L (14.0-18.0) g/dl Hct 32 L (42-52) % MCV 87 (80-94) fL MCH 29 (27-31) pg MCHC 33 (31-36) g/dl RDW 15 (10.5-15) % Plt Count 210 (150-450) 10^3/ul MPV 8 (7.4-10.4) um3 Neut % (Auto) 81.1 (38-83) % Lymph % (Auto) 7.1 L (25-47) % [place] % (Auto) 9.2 H (1-9) % Eos % (Auto) 1.8 (0-6) % Baso % (Auto) 0.8 (0-2) % Absolute Neuts (auto) 5.5 (1.5-7.7) 10^3/ul Absolute Lymphs (auto) 0.5 L (1.0-4.8) 10^3/ul Absolute Monos (auto) 0.6 (0-0.8) 10^3/ul Absolute Eos (auto) 0.1 (0-0.6) 10^3/ul Absolute Basos (auto) 0.1 (0-0.2) 10^3/ul Absolute Nucleated RBC 0.01 10^3/ul Nucleated RBC % 0.1 Sodium Pending Potassium Pending Chloride Pending Carbon Dioxide Pending Anion Gap Pending BUN Pending Creatinine Pending Est GFR ( Amer) Pending Est GFR (Non-Af Amer) Pending BUN/Creatinine Ratio Pending Glucose Pending Lactic Acid 0.7 (0.5-2.0) mmol/L Calcium Pending Total Bilirubin Pending AST Pending ALT Pending Alkaline Phosphatase Pending Troponin I 0.64 H* (<0.04) ng/mL Total Protein Pending Albumin Pending Globulin Pending Albumin/Globulin Ratio Pending Assess/Plan/Problems-Billing Assessment: Mr. Figueroa is an 86 year old male with a PMH of dementia, systolic CHF, HTN, BPH, and HLD who was referred to the ED on 06/19/16 by his PCP for evaluation and treatment of dehydration; patient was found to have an elevated troponin. Family requested hospice consult and comfort care measures only. - Patient Problems (1) Comfort measures only status Code(s): Z51.5 - ENCOUNTER FOR PALLIATIVE CARE Comment: Family reports that patient has been rapidly declining and desire no aggressive workup. Continue home medications. Patient does not qualify for hospice care at this time, as his EF is preserved. Family wishes that the patient return to [facility] on Thursday, stating they have discussed this with the facility director already. CM/SW made aware for follow-up. (2) Weakness Code(s): R53.1 - WEAKNESS Comment: Concern for multiple falls at home. Family desired hospice, but patient does not yet qualify. PT/OT consult placed to evaluate for safety upon discharge to [facility]. (3) Elevated troponin Code(s): R79.89 - OTHER SPECIFIED ABNORMAL FINDINGS OF BLOOD CHEMISTRY Comment : Troponin 0.64 in ED Per patient's family, no further cardiac workup. (4) Dementia Code(s): F03.90 - UNSPECIFIED DEMENTIA WITHOUT BEHAVIORAL DISTURBANCE Comment : Supportive care. (5) Systolic CHF Code(s): I50.20 - UNSPECIFIED SYSTOLIC (CONGESTIVE) HEART FAILURE Comment: Does not appear to be in exacerbation. EF 50-55% with no significant changes from previous echo in 2015. Continue home furosemide, spironolactone, metoprolol. (6) BPH (benign prostatic hyperplasia) Code(s): N40.0 - BENIGN PROSTATIC HYPERPLASIA WITHOUT LOWER URINRY TRACT SYMP Comment: Continue tamsulosin. (7) HTN (hypertension) Code(s): I10 - ESSENTIAL (PRIMARY) HYPERTENSION Comment: Normotensive. Continue lisinopril and metoprolol with hold parameters. (8) DVT prophylaxis Code(s): [id number] - Comment: SQ enoxaparin (9) DNR (do not resuscitate) Status and Disposition: Inpatient admission. Patient does not qualify for hospice. PT/OT consults. Family wishes patient to go back to [facility]. CM/SW following.
[2016-06-21] MEDS: Enoxaparin(*) 30 MG/0.3 ML SYR SUBCUT SCH (15:09)
[2016-06-21] MEDS: Tamsulosin CAP* 0.4 MG PO SCH (22:53)
[2016-06-22 07:15] LABS: Calcium 8.1 mg/dL (8.6-10.3); EGFR African American 40.8 (>60); EGFR Non-African American 31.8 (>60); Potassium 5.3 mmol/L (3.5-5.0)
[2016-06-22] MEDS: Spironolactone TAB* 25 MG PO SCH ×2 (07:21→08:42)
[2016-06-22] MEDS: Metoprolol Succinate XL TAB* 25 MG PO SCH (07:21)
[2016-06-22] MEDS: Furosemide TAB* 40 MG PO SCH (07:21)
[2016-06-22] MEDS: Lisinopril TAB* 10 MG PO SCH ×2 (07:22→08:59)
[2016-06-22] MEDS: Magnesium Oxide TAB* 400 MG PO SCH (07:28)
[2016-06-22] MEDS: Moisturizing CREAM* 120 GM JAR TOPICAL SCH ×3 (07:28→21:31)
[2016-06-22] MEDS: Aspirin EC Low Dose* 81 MG TAB.EC PO SCH (07:28)
[2016-06-22] MEDS ORDERED: Lisinopril TAB* 10 MG ONE (08:57)
[2016-06-22] MEDS: Furosemide TAB* 20 MG PO SCH (08:59)
--- NOTE | 2016-06-22 09:22 | PN ---
Subjective Date of Service: 06/22/16 Interval History: Patient seen and examined at bedside. He is sitting up in the chair, eating breakfast. When asked if he has had any dizziness, chest pain, or trouble breathing last night or this morning, he states, "I don't think so." He is very pleasant but has poor recall of yesterday or overnight. He does remember he is in a hospital this morning. Family History: Unchanged from Admission Social History: Unchanged from Admission Past Medical History: Unchanged from Admission Objective Active Medications: Acetaminophen (Tylenol Tab*) 650 mg PO Q4H PRN PRN Reason: PAIN Last Admin: 06/21/16 15:10 Dose: 650 mg Albuterol (Ventolin 2.5 Mg/3 Ml Neb.Susu*) 2.5 mg INH Q4H PRN PRN Reason: SOB/WHEEZING Aspirin (Aspirin Ec Low Dose*) 81 mg PO DAILY [facility] Last Admin: 06/22/16 07:28 Dose: 81 mg Enoxaparin Sodium (Lovenox(*)) 30 mg SUBCUT Q24H [facility] Last Admin: 06/21/16 15:09 Dose: 30 mg Furosemide (Lasix Tab*) 20 mg PO DAILY [facility] Last Admin: 06/22/16 08:59 Dose: 20 mg Lisinopril (Prinivil Tab*) 10 mg PO DAILY [facility] PRN Reason: Protocol Last Admin: 06/22/16 08:59 Dose: 10 mg Magnesium Oxide (Magox 400 Tab*) 400 mg PO DAILY [facility] Last Admin: 06/22/16 07:28 Dose: 400 mg Metoprolol Succinate (Toprol Xl Tab*) 12.5 mg PO DAILY [facility] Last Admin: 06/22/16 07:21 Dose: Not Given Morphine Sulfate (Morphine Inj (Syringe)*) 2 mg IV Q4H PRN PRN Reason: PAIN - MILD Last Admin: 06/20/16 09:55 Dose: 2 mg Multi-Ingredient Ointment (Hydrocerin*) 1 applic TOPICAL TID [facility] Last Admin: 06/22/16 07:28 Dose: 1 applic Ondansetron HCl (Zofran Odt Tab*) 4 mg PO Q6H PRN PRN Reason: NAUSEA/VOMITING Last Admin: 06/20/16 11:08 Dose: 4 mg Spironolactone (Aldactone Tab*) 25 mg PO DAILY [facility] Last Admin: 06/22/16 08:42 Dose: Not Given Tamsulosin HCl (Flomax Cap*) 0.4 mg PO BEDTIME [facility] Last Admin: 06/21/16 22:53 Dose: 0.4 mg Vital Signs 06/21/16 06/21/16 06/21/16 15:08 15:11 16:00 Temperature 97.9 F Pulse Rate 64 Respiratory 16 Rate Blood Pressure 102/42 (mmHg) O2 Sat by Pulse 92 95 Oximetry 06/21/16 06/21/16 06/21/16 19:50 22:57 23:15 Temperature 98.0 F Pulse Rate 55 53 Respiratory 16 20 Rate Blood Pressure 100/34 99/39 (mmHg) O2 Sat by Pulse 94 Oximetry 06/22/16 06/22/16 06/22/16 02:06 07:32 07:33 Temperature Pulse Rate 62 Respiratory 12 16 Rate Blood Pressure (mmHg) O2 Sat by Pulse 93 93 Oximetry 06/22/16 07:54 Temperature 97.5 F Pulse Rate 57 Respiratory 20 Rate Blood Pressure 112/38 (mmHg) O2 Sat by Pulse 95 Oximetry Oxygen Devices in Use Now: None Appearance: Elderly gentleman, OOB to chair, in NAD Eyes: PERRLA Ears/Nose/Mouth/Throat: Clear Oropharnyx, Mucous Membranes Moist Neck: NL Appearance and Movements; NL JVP Respiratory: Symmetrical Chest Expansion and Respiratory Effort, Clear to Auscultation - bibasilar crackles Cardiovascular: NL Sounds; No Murmurs; No JVD Abdominal: NL Sounds; No Tenderness; No Distention Extremities: No Clubbing, Cyanosis - trace pretibial edema Skin: No Rash or Ulcers Neurological: - - alert, oriented to self and place, pleasantly confused, cooperative with care Lines/Tubes/Other Access: Clean, Dry and Intact Peripheral IV Nutrition: Taking PO's Result Diagrams: 06/19/16 15:40 06/22/16 06:40 Additional Lab and Data: Lab Results 06/19/16 06/19/16 06/19/16 Range/Units 15:40 15:40 15:40 WBC 6.8 (3.5-10.8) 10^3/ul RBC 3.68 L (4.0-5.4) 10^6/ul Hgb 10.5 L (14.0-18.0) g/dl Hct 32 L (42-52) % MCV 87 (80-94) fL MCH 29 (27-31) pg MCHC 33 (31-36) g/dl RDW 15 (10.5-15) % Plt Count 210 (150-450) 10^3/ul MPV 8 (7.4-10.4) um3 Neut % (Auto) 81.1 (38-83) % Lymph % (Auto) 7.1 L (25-47) % Crowley % (Auto) 9.2 H (1-9) % Eos % (Auto) 1.8 (0-6) % Baso % (Auto) 0.8 (0-2) % Absolute Neuts (auto) 5.5 (1.5-7.7) 10^3/ul Absolute Lymphs (auto) 0.5 L (1.0-4.8) 10^3/ul Absolute Monos (auto) 0.6 (0-0.8) 10^3/ul Absolute Eos (auto) 0.1 (0-0.6) 10^3/ul Absolute Basos (auto) 0.1 (0-0.2) 10^3/ul Absolute Nucleated RBC 0.01 10^3/ul Nucleated RBC % 0.1 Sodium Pending Potassium Pending Chloride Pending Carbon Dioxide Pending Anion Gap Pending BUN Pending Creatinine Pending Est GFR ( Amer) Pending Est GFR (Non-Af Amer) Pending BUN/Creatinine Ratio Pending Glucose Pending Lactic Acid 0.7 (0.5-2.0) mmol/L Calcium Pending Total Bilirubin Pending AST Pending ALT Pending Alkaline Phosphatase Pending Troponin I 0.64 H* (<0.04) ng/mL Total Protein Pending Albumin Pending Globulin Pending Albumin/Globulin Ratio Pending Assess/Plan/Problems-Billing Assessment: Mr. Figueroa is an 86 year old male with a PMH of dementia, systolic CHF, HTN, BPH, and HLD who was referred to the ED on 06/19/16 by his PCP for evaluation and treatment of dehydration; patient was found to have an elevated troponin. Family requested hospice consult and comfort care measures only. - Patient Problems (1) Weakness Code(s): R53.1 - WEAKNESS Comment: Concern for multiple falls at home. Family desired hospice, but patient does not yet qualify. PT/OT consult placed to evaluate for safety upon discharge to [facility]. (2) Comfort measures only status Code(s): Z51.5 - ENCOUNTER FOR PALLIATIVE CARE Comment: Family reports that patient has been rapidly declining and desire no aggressive workup. Continue home medications. Patient does not qualify for hospice care at this time, as his EF is preserved. Family wishes that the patient return to [facility] on Thursday, stating they have discussed this with the facility director already. CM/SW made aware for follow-up. (3) Elevated troponin Code(s): R79.89 - OTHER SPECIFIED ABNORMAL FINDINGS OF BLOOD CHEMISTRY Comment : Troponin 0.64 in ED Per patient's family, no further cardiac workup. (4) Dementia Code(s): F03.90 - UNSPECIFIED DEMENTIA WITHOUT BEHAVIORAL DISTURBANCE Comment : Supportive care. (5) Systolic CHF Code(s): I50.20 - UNSPECIFIED SYSTOLIC (CONGESTIVE) HEART FAILURE Comment: Does not appear to be in exacerbation. EF 50-55% with no significant changes from previous echo in 2015. Continue home furosemide, spironolactone, metoprolol. Check weight in AM. (6) BPH (benign prostatic hyperplasia) Code(s): N40.0 - BENIGN PROSTATIC HYPERPLASIA WITHOUT LOWER URINRY TRACT SYMP Comment: Continue tamsulosin. (7) HTN (hypertension) Code(s): I10 - ESSENTIAL (PRIMARY) HYPERTENSION Comment: Normotensive, even without medications. Concern that patient may have also been falling due to orthostatic hypotension. Continue metoprolol with hold parameters. Will reduce lisinopril and continue to monitor BP. (8) DVT prophylaxis Code(s): [id number] - Comment: SQ enoxaparin (9) DNR (do not resuscitate) Status and Disposition: Inpatient admission. Patient does not qualify for hospice. PT/OT consults. Family wishes patient to go back to [facility]. ESE/MARTY following.
[2016-06-22] MEDS: Enoxaparin(*) 30 MG/0.3 ML SYR SUBCUT SCH (12:58)
[2016-06-22] MEDS: Tamsulosin CAP* 0.4 MG PO SCH (21:30)
[2016-06-23 08:20] VITALS: BP 136/40
[2016-06-23] MEDS: Metoprolol Succinate XL TAB* 25 MG PO SCH (09:20)
[2016-06-23] MEDS: Magnesium Oxide TAB* 400 MG PO SCH (09:20)
[2016-06-23] MEDS: Aspirin EC Low Dose* 81 MG TAB.EC PO SCH (09:20)
[2016-06-23] MEDS: Moisturizing CREAM* 120 GM JAR TOPICAL SCH ×2 (09:21→13:58)
[2016-06-23] MEDS: Furosemide TAB* 20 MG PO SCH (09:21)
[2016-06-23] MEDS: Lisinopril TAB* 10 MG PO SCH (09:23)
[2016-06-23] MEDS: Spironolactone TAB* 25 MG PO SCH (09:23)
--- NOTE | 2016-06-23 11:54 | DCNOTE ---
Subjective Date of Service: 06/23/16 Interval History: Patient seen and examined at bedside. He is OOB to chair and was observed getting up from the sofa in his room and moving to another chair. Gait slow but steady with stand by assist. He denies fever/chills, chest pain, SOB, abd pain, n/v. When asked if he felt well enough to go home, he states, "Whatever you say ! I'm fine." Family History: Unchanged from Admission Social History: Unchanged from Admission Past Medical History: Unchanged from Admission Objective Active Medications: Acetaminophen (Tylenol Tab*) 650 mg PO Q4H PRN PRN Reason: PAIN Last Admin: 06/21/16 15:10 Dose: 650 mg Albuterol (Ventolin 2.5 Mg/3 Ml Neb.Susu*) 2.5 mg INH Q4H PRN PRN Reason: SOB/WHEEZING Aspirin (Aspirin Ec Low Dose*) 81 mg PO DAILY [facility] Last Admin: 06/23/16 09:20 Dose: 81 mg Enoxaparin Sodium (Lovenox(*)) 30 mg SUBCUT Q24H [facility] Last Admin: 06/22/16 12:58 Dose: 30 mg Furosemide (Lasix Tab*) 20 mg PO DAILY [facility] Last Admin: 06/23/16 09:21 Dose: 20 mg Lisinopril (Prinivil Tab*) 10 mg PO DAILY [facility] PRN Reason: Protocol Last Admin: 06/23/16 09:23 Dose: 10 mg Magnesium Oxide (Magox 400 Tab*) 400 mg PO DAILY [facility] Last Admin: 06/23/16 09:20 Dose: 400 mg Metoprolol Succinate (Toprol Xl Tab*) 12.5 mg PO DAILY [facility] Last Admin: 06/23/16 09:20 Dose: 12.5 mg Morphine Sulfate (Morphine Inj (Syringe)*) 2 mg IV Q4H PRN PRN Reason: PAIN - MILD Last Admin: 06/20/16 09:55 Dose: 2 mg Multi-Ingredient Ointment (Hydrocerin*) 1 applic TOPICAL TID [facility] Last Admin: 06/23/16 09:21 Dose: 1 applic Ondansetron HCl (Zofran Odt Tab*) 4 mg PO Q6H PRN PRN Reason: NAUSEA/VOMITING Last Admin: 06/20/16 11:08 Dose: 4 mg Spironolactone (Aldactone Tab*) 25 mg PO DAILY [facility] Last Admin: 06/23/16 09:23 Dose: 25 mg Tamsulosin HCl (Flomax Cap*) 0.4 mg PO BEDTIME [facility] Last Admin: 06/22/16 21:30 Dose: 0.4 mg Vital Signs 06/22/16 06/22/16 06/23/16 15:48 21:35 04:46 Temperature 97.3 F Pulse Rate 31 42 Respiratory 22 18 16 Rate Blood Pressure 119/34 (mmHg) O2 Sat by Pulse 95 95 Oximetry 06/23/16 06/23/16 06/23/16 07:44 08:19 10:24 Temperature 97.6 F Pulse Rate 57 45 Respiratory 16 16 Rate Blood Pressure 136/40 (mmHg) O2 Sat by Pulse 96 96 Oximetry Oxygen Devices in Use Now: None Appearance: Elderly male patient, OOB to chair, in NAD Eyes: PERRLA Ears/Nose/Mouth/Throat: Clear Oropharnyx, Mucous Membranes Moist Neck: NL Appearance and Movements; NL JVP Respiratory: Symmetrical Chest Expansion and Respiratory Effort, Clear to Auscultation - crackles in the bases Cardiovascular: NL Sounds; No Murmurs; No JVD Abdominal: NL Sounds; No Tenderness; No Distention Extremities: No Clubbing, Cyanosis - trace pretibial edema Skin: No Rash or Ulcers Neurological: - - alert, oriented to self Lines/Tubes/Other Access: Clean, Dry and Intact Peripheral IV Nutrition: Taking PO's Result Diagrams: 06/19/16 15:40 06/22/16 06:40 Additional Lab and Data: Lab Results 06/19/16 06/19/16 06/19/16 Range/Units 15:40 15:40 15:40 WBC 6.8 (3.5-10.8) 10^3/ul RBC 3.68 L (4.0-5.4) 10^6/ul Hgb 10.5 L (14.0-18.0) g/dl Hct 32 L (42-52) % MCV 87 (80-94) fL MCH 29 (27-31) pg MCHC 33 (31-36) g/dl RDW 15 (10.5-15) % Plt Count 210 (150-450) 10^3/ul MPV 8 (7.4-10.4) um3 Neut % (Auto) 81.1 (38-83) % Lymph % (Auto) 7.1 L (25-47) % Branch % (Auto) 9.2 H (1-9) % Eos % (Auto) 1.8 (0-6) % Baso % (Auto) 0.8 (0-2) % Absolute Neuts (auto) 5.5 (1.5-7.7) 10^3/ul Absolute Lymphs (auto) 0.5 L (1.0-4.8) 10^3/ul Absolute Monos (auto) 0.6 (0-0.8) 10^3/ul Absolute Eos (auto) 0.1 (0-0.6) 10^3/ul Absolute Basos (auto) 0.1 (0-0.2) 10^3/ul Absolute Nucleated RBC 0.01 10^3/ul Nucleated RBC % 0.1 Sodium Pending Potassium Pending Chloride Pending Carbon Dioxide Pending Anion Gap Pending BUN Pending Creatinine Pending Est GFR ( Amer) Pending Est GFR (Non-Af Amer) Pending BUN/Creatinine Ratio Pending Glucose Pending Lactic Acid 0.7 (0.5-2.0) mmol/L Calcium Pending Total Bilirubin Pending AST Pending ALT Pending Alkaline Phosphatase Pending Troponin I 0.64 H* (<0.04) ng/mL Total Protein Pending Albumin Pending Globulin Pending Albumin/Globulin Ratio Pending Assess/Plan/Problems-Billing Assessment: Mr. Figueroa is an 86 year old male with a PMH of dementia, systolic CHF, HTN, BPH, and HLD who was referred to the ED on 06/19/16 by his PCP for evaluation and treatment of dehydration; patient was found to have an elevated troponin. Family requested hospice consult and comfort care measures only. - Patient Problems (1) Weakness Code(s): R53.1 - WEAKNESS Comment: Concern for multiple falls at home. Family desired hospice, but patient does not yet qualify. Discharge to [facility] and Home PT. (2) Comfort measures only status Code(s): Z51.5 - ENCOUNTER FOR PALLIATIVE CARE Comment: Family reports that patient has been rapidly declining and desire no aggressive workup. Continue home medications. Patient does not qualify for hospice care at this time, as his EF is preserved. Discharge to [facility] per family's wishes (3) Elevated troponin Code(s): R79.89 - OTHER SPECIFIED ABNORMAL FINDINGS OF BLOOD CHEMISTRY Comment : Troponin 0.64 in ED, potential NSTEMI Patient continues to deny chest pain. Per patient's family, no further cardiac workup. (4) Dementia Code(s): F03.90 - UNSPECIFIED DEMENTIA WITHOUT BEHAVIORAL DISTURBANCE Comment : Supportive care. (5) Systolic CHF Code(s): I50.20 - UNSPECIFIED SYSTOLIC (CONGESTIVE) HEART FAILURE Comment: Does not appear to be in exacerbation. EF 50-55% with no significant changes from previous echo in 2015. Continue home furosemide at reduced dose, reduced dose spironolactone, metoprolol. (6) BPH (benign prostatic hyperplasia) Code(s): N40.0 - BENIGN PROSTATIC HYPERPLASIA WITHOUT LOWER URINRY TRACT SYMP Comment: Continue tamsulosin. (7) HTN (hypertension) Code(s): I10 - ESSENTIAL (PRIMARY) HYPERTENSION Comment: Normotensive, even without medications. Concern that patient may have also been falling due to orthostatic hypotension. Continue metoprolol with hold parameters. Continue lisinopril at reduced dose. (8) DVT prophylaxis Code(s): NZF0463 - Comment: SQ enoxaparin (9) DNR (do not resuscitate) Status and Disposition: Inpatient admission. Patient does not qualify for hospice. PT/OT consults. Family wishes patient to go back to [facility]. CM/SW following.
[2016-06-23] MEDS: Enoxaparin(*) 30 MG/0.3 ML SYR SUBCUT SCH (13:57)
--- NOTE | 2016-06-23 22:30 | DS ---
MEDICINE DISCHARGE SUMMARY: DATE OF ADMISSION: 06/19/16 DATE OF DISCHARGE: 06/23/16 PROVIDER: Swetha Reyes NP ATTENDING PHYSICIAN: Dr. Audra He *(as dictated by Swetha Reyes NP). PRIMARY CARE PROVIDER: FERNANDO Cook. CONSULTING PHYSICIAN: Dr. Ranjana Warner, Palliative Care Services. PRIMARY DISCHARGE DIAGNOSES: 1. Weakness. 2. Falls. 3. Potential non-ST elevation myocardial infarction. 4. Hyperkalemia. SECONDARY DISCHARGE DIAGNOSES: 1. Dementia. 2. Hypertension. 3. Benign prostatic hyperplasia. 4. Hyperlipidemia. 5. History of systolic congestive heart failure. MEDICATIONS: Home medications at discharge: 1. Albuterol inhaler 2 puffs inhaled q.4 hours p.r.n. 2. Tylenol 650 q.4 hours p.r.n. 3. Aspirin 81 mg daily. 4. Tamsulosin 0.4 mg at bedtime. 5. Metoprolol succinate XL 12.5 mg daily. 6. Simvastatin 20 mg at bedtime. 7. Magnesium oxide 400 mg daily. New medications at discharge: 1. Spironolactone 12.5 mg daily. This is a change from previously dosed 25 mg. 2. Eucerin cream, apply to affected extremities and dry areas t.i.d. p.r.n. 3. Lisinopril 10 mg daily. It is a change from previous dose and medication, fosinopril 20 mg b.i.d. 4. Furosemide 20 mg daily. This is a change in dosing from 40 mg to 20 mg. 5. Acetaminophen 650 mg q.4 hours p.r.n. DIAGNOSTIC TESTING DURING THIS ADMISSION: Transthoracic echocardiogram from , conclusions: The left ventricular chamber size is normal. Mild concentric left ventricular hypertrophy is observed. There is normal left ventricular systolic function. The estimated ejection fraction is 50% to 55%. There is mild septal flattening of the interventricular septum consistent with right ventricular volume and/or pressure overload. The left atrium is mildly dilated. The right ventricle is moderately dilated. The right ventricular global systolic function is moderately reduced. The right atrium is mildly dilated. No more than mild valvular regurgitation is noted. There is evidence of mild-to- moderate pulmonary hypertension. Compared to prior study from September 2014, no significant changes noted. HOSPITAL COURSE OF STAY: For full details, please refer to the H and P provided by Alysha Walters NP, on 06/19/16. In summary, Mr. Figueroa is an 86- year-old male with a past medical history as stated above. He was referred to the ED for further evaluation by his PCP after presenting to his PCP's office with report of increased falls, decreased appetite, loose stools, and lower extremity edema. The patient was noted to be dehydrated and had concern for NSTEMI with his elevated troponin of 0.64. It was noted that this is the patient's third visit to the emergency department in the past month and has been receiving IV fluids. Initially, the family requested that comfort care measures be implemented for their father and that they did not wish to pursue any aggressive workup at this time. They requested a hospice care consult. During the patient's initial evaluation, it was noted that he did have some hypotension as well as interstitial edema on his chest x-ray; however, the patient did not appear to be in acute failure and appeared quite comfortable. He did have a palliative care consultation the following day and it was communicated that the patient did not yet meet eligibility for hospice; however , they did ask for the echocardiogram to be done in order to evaluate if he had a reduced ejection fraction from potential NSTEMI event with the understanding that he may be admitted for this in combination with his chronic renal insufficiency. The patient's EF was not reduced and the patient does not qualify for hospice at this time. The family felt that they would like him to go back to the [facility] until the patient has more significant decline, at which point he can be reevaluated for hospice. Both the family and our social work case management have been in contact with [facility], who is able to receive the patient back with home health and home nursing services as well as home PT. During the patient's admission, it was noted that he does have some hyperkalemia. His potassium was checked on two separate occasions. Given this and his hypotension that was noted during his stay with systolic blood pressures running between 74 and 120 for majority of the patient's stay, I did reduce the patient's medications as previously stated from 20 mg b.i.d. for his TITO inhibitor down to 10 mg daily as well as reduced his furosemide down to 20 mg and cut his spironolactone in half in order to reduce the risk of further hyperkalemia and orthostatic hypotension. This should be followed closely with his PCP. The patient remained comfortable with these reductions in medication here and has not exhibited any fluid overload or respiratory distress. His weight upon leaving the hospital is 145. If the patient continues to have weight gain, he may add additional Lasix 20 mg to his regimen in order to help manage these symptoms; however, I am concerned that at least some of his symptoms of weakness and dizziness may have been due to elevated potassium levels causing strain on his heart as well as low blood pressures due to his antihypertensive regimen. On the day of discharge, the patient is comfortable, ambulatory, he has no complaints and is very eager to go back to [facility]. CONCERNS AT DISCHARGE: The patient will be discharged to [facility] on with a plan to follow up with his PCP later this week on 06/27/16. DIET: Resume regular diet. Recommend low-sodium diet to prevent CHF exacerbation. ACTIVITY: As tolerated. The patient to use assistive devices as directed. CONDITION: Fair, stable. DISPOSITION: To [facility] with home health services. TIME SPENT: Time spent on this discharge was approximately 45 minutes. Again, this is only a brief summary of the patient's hospital course of stay. For full details, please refer to the full medical record. If you have any further questions or need further assistance, please feel free to contact me at [phone]. SWETHA REYES NP CC: FERNANDO Galvin * [id number]/EFRA #: [id number]
--- NOTE | 2016-07-05 20:42 | ED ---
Roldan Noguera Anna, scribed for Keyshawn Hitchcock MD on 06/19/16 at 1626 . Complex/Multi-Sys Presentation - HPI Summary HPI Summary: Patient is an 86 y/o male coming to [facility] presenting with gradual onset of constant weakness that began 3 days ago. He went to his PCP, who was concerned for dehydration. His assisted living facility reports that he had an increase in falls, a decrease in appetite, and loose stools. He had a fall one week ago. He additionally has leg edema. Denies abdominal pain, back pain, emesis, CP , chest pressure, SOB. He reports he is able to walk and go to the bathroom normally. He uses oxygen at baseline. - History Of Current Complaint Chief Complaint: EDWeakness Time Seen by Provider: 06/19/16 15:55 Hx Obtained From: Patient, Family/Fitness Studies Teacher, Other: - Assisted living staff - Allergies/Home Medications Allergies/Adverse Reactions: Allergies Allergy/AdvReac Type Severity Reaction Status Date / Time No Known Allergies Allergy Verified 06/12/16 09:48 Home Medications: Home Medications Aspirin EC Low Dose* [Ecotrin EC Low Dose*] 81 mg PO DAILY 06/19/16 [History Confirmed 06/19/16] Metoprolol Succinate XL TAB* [Toprol XL TAB*] 12.5 mg PO DAILY 06/19/16 [ History Confirmed 06/19/16] PMH/Surg Hx/FS Hx/Imm Hx Endocrine/Hematology History: Reports: Hx Anemia Denies: Hx Diabetes Cardiovascular History: Reports: Hx Congestive Heart Failure, Hx Hypercholesterolemia, Hx Hypertension, Hx Valvular Heart Disease - mitral valve dx, Other Cardiovascular Problems/Disorders Respiratory History: Reports: Hx Pleural Effusion GI History: Reports: Hx Gastroesophageal Reflux Disease History: Reports: Hx Benign Prostatic Hyperplasia Musculoskeletal History: Reports: Hx Arthritis, Hx Gout Sensory History: Reports: Hx Contacts or Glasses Opthamlomology History: Reports: Hx Contacts or Glasses Neurological History: Reports: Hx Dementia - Surgical History Surgery Procedure, Year, and Place: right knee replaced - Immunization History Date of Tetanus Vaccine: Unk Date of Influenza Vaccine: Unk Infectious Disease History: No Infectious Disease History: Denies: Traveled Outside the [place] in Last 30 Days - Family History Known Family History: Positive: Hypertension - Social History Occupation: Retired Lives: With Family Alcohol Use: None Alcohol Amount: 2 beers/day Hx Substance Use: No Substance Use Type: Reports: None Hx Tobacco Use: Yes Smoking Status (MU): Former Smoker Type: Cigarettes Length of Time of Smoking/Using Tobacco: 30 years. Have You Smoked in the Last Year: No Review of Systems Negative: Chest Pain Negative: Shortness Of Breath Negative: Abdominal Pain, Vomiting, Nausea Negative: dysuria, hematuria Positive: Edema. Negative: Myalgia Negative: Rash Neurological: Other - Denies dizziness Positive: Weakness All Other Systems Reviewed And Are Negative: Yes Physical Exam - Summary Physical Exam Summary: Constitutional: Well-developed, Well-nourished, Alert. (-) Distressed Skin: Warm, Dry HENT: Normocephalic; Atraumatic Eyes: Conjunctiva normal Neck: Musculoskeletal ROM normal neck. (-) JVD, (-) Stridor, (-) Tracheal deviation Cardio: Rhythm regular, rate normal, Heart sounds normal; Intact distal pulses; The pedal pulses are 2+ and symmetric. Radial pulses are 2+ and symmetric. ~(-) Murmur Pulmonary/Chest wall: Effort normal. (-) Respiratory distress, (-) Wheezes, Rales bilaterally Abd: Soft, (-) Tenderness, ~(-) Distension, (-) Guarding, (-) Rebound Musculoskeletal: Trace Edema Lymph: (-) Cervical adenopathy Neuro: Alert, Oriented x3 Psych: Mood and affect Normal Triage Information Reviewed: Yes Vital Signs On Initial Exam: Initial Vitals Temp Pulse Resp BP Pulse Ox 98.5 F 56 11 123/51 100 06/19/16 15:19 06/19/16 15:19 06/19/16 15:19 06/19/16 15:19 06/19/16 15:19 Vital Signs Reviewed: Yes - [place] Coma Scale Coma Scale Total: 14 Diagnostics - Vital Signs Vital Signs Temp Pulse Resp BP Pulse Ox 06/19/16 15:30 38 24 121/59 61 06/19/16 15:27 21 100/73 06/19/16 15:26 67 21 76 06/19/16 15:19 98.5 F 56 11 123/51 100 - Laboratory Lab Results: Lab Results 06/19/16 06/19/16 06/19/16 Range/Units 15:40 15:40 15:40 WBC 6.8 (3.5-10.8) 10^3/ul RBC 3.68 L (4.0-5.4) 10^6/ul Hgb 10.5 L (14.0-18.0) g/dl Hct 32 L (42-52) % MCV 87 (80-94) fL MCH 29 (27-31) pg MCHC 33 (31-36) g/dl RDW 15 (10.5-15) % Plt Count 210 (150-450) 10^3/ul MPV 8 (7.4-10.4) um3 Neut % (Auto) 81.1 (38-83) % Lymph % (Auto) 7.1 L (25-47) % [place] % (Auto) 9.2 H (1-9) % Eos % (Auto) 1.8 (0-6) % Baso % (Auto) 0.8 (0-2) % Absolute Neuts (auto) 5.5 (1.5-7.7) 10^3/ul Absolute Lymphs (auto) 0.5 L (1.0-4.8) 10^3/ul Absolute Monos (auto) 0.6 (0-0.8) 10^3/ul Absolute Eos (auto) 0.1 (0-0.6) 10^3/ul Absolute Basos (auto) 0.1 (0-0.2) 10^3/ul Absolute Nucleated RBC 0.01 10^3/ul Nucleated RBC % 0.1 Sodium Pending Potassium Pending Chloride Pending Carbon Dioxide Pending Anion Gap Pending BUN Pending Creatinine Pending Est GFR ( Amer) Pending Est GFR (Non-Af Amer) Pending BUN/Creatinine Ratio Pending Glucose Pending Lactic Acid 0.7 (0.5-2.0) mmol/L Calcium Pending Total Bilirubin Pending AST Pending ALT Pending Alkaline Phosphatase Pending Troponin I 0.64 H* (<0.04) ng/mL Total Protein Pending Albumin Pending Globulin Pending Albumin/Globulin Ratio Pending Result Diagrams: 06/19/16 15:40 06/19/16 15:40 Lab Statement: Any lab studies that have been ordered have been reviewed, and results considered in the medical decision making process. - Radiology CXR Xray Interpretation: No Acute Changes Radiology Interpretation Completed By: Radiologist - IMPRESSION: HYPERINFLATION. MINIMAL BASILAR ABNORMALITIES. NO ACUTE FINDINGS - EKG 1516 Cardiac Rate: NL - 58 bpm EKG Rhythm: Sinus Rhythm EKG Interpretation: minimal ST elevation in II, III, V4, V5 compared to previous EKG EKG Comparison: Other - compared to 06/12/16 Complex Multi-Symp Course/Dx Assessment/Plan: Patient is an 86 y/o male coming to [facility] presenting with gradual onset of constant weakness that began 3 days ago. He went to his PCP, who was concerned for dehydration. His assisted living facility reports that he had an increase in falls, a decrease in appetite, and loose stools. He had a fall one week ago. He additionally has leg edema. Denies abdominal pain, back pain, emesis, CP, chest pressure, SOB. He reports he is able to walk and go to the bathroom normally. He uses oxygen at baseline. CXR shows nothing acute. EKG showed minimal ST elevation in II, III, V4, V5 compared to previous EKG from 01/2017. Troponin was 0.64 compared to troponin of 0.04 on . Discussed care of patient with coding team lead and hospitalist, who agrees to admit. - Diagnoses Provider Diagnoses: CHF exacerbation, Acute renal failure, Hyperkalemia - Physician Notifications Discussed Care Of Patient With: Dr. Durán (coding team lead) at 1708. He looked at patient's EKG and recommends medical addmission. Agreed that he is not a STEMI. We will diurese patient. Dr. He (hospitalist) at 1710. Accepts patient for admission. Discharge - Discharge Plan Condition: Stable Disposition: ADMITTED TO [facility] Referrals: Session Wyatt KING [Primary Care Provider] - The documentation as recorded by the Roldan adler Anna accurately reflects the service I personally performed and the decisions made by me, Keyshawn Hitchcock MD.
== END 2016-06-23 14:30 | disposition home or self-care (01) | DRG 281 ==
LOC: ED 15:09 → MED 18:13
PROVIDERS: ADMIT Internal Medicine; ATTEND Hospitalist
DX: I21.4 Non-ST elevation (NSTEMI) myocardial infarction (principal); I42.8 Other cardiomyopathies; F03.90 Unspecified dementia, unspecified severity, without behavioral disturbance, psychotic disturbance, mood disturbance, and anxiety; I11.0 Hypertensive heart disease with heart failure; I50.20 Unspecified systolic (congestive) heart failure; R53.1 Weakness; E78.5 Hyperlipidemia, unspecified; N40.0 Benign prostatic hyperplasia without lower urinary tract symptoms; E87.5 Hyperkalemia; E86.0 Dehydration; Z66 Do not resuscitate; Z79.82 Long term (current) use of aspirin; Z79.1 Long term (current) use of non-steroidal anti-inflammatories (NSAID); Z79.899 Other long term (current) drug therapy; W18.39XA Other fall on same level, initial encounter; Z91.81 History of falling; Y92.009 Unspecified place in unspecified non-institutional (private) residence as the place of occurrence of the external cause
CPT/HCPCS: 36415; 71010; 80048; 80053; 81003; 83605; 83880; 84484; 85025; 85610; 85730; 87040; 87502; 87641; 90686; 93005; 93306; 94760; A9270-GY; J1650; J1940; J2270

== ENCOUNTER 2017-04-19 13:58 | Inpatient (IN) | payer MEDICARE, BC ==
[2017-04-19] MEDS ORDERED: Aspirin Low Dose CHEW TAB* 81 MG PO ONE (14:14)
[2017-04-19] MEDS ORDERED: Furosemide IV* 10 MG/ML VIAL (40 MG) IV ONE (14:14)
--- NOTE | 2017-04-19 15:41 | RAD ---
HISTORY: Shortness of breath COMPARISONS: June 19, 2016 VIEWS: 1: frontal portable view of the chest at 3:30 PM FINDINGS: LINES AND TUBES: None. CARDIOMEDIASTINAL SILHOUETTE: The cardiomediastinal silhouette is normal for portable technique. PLEURA: The costophrenic angles are sharp. No pleural abnormalities are noted. LUNG PARENCHYMA: There is patchy alveolar opacification of the right mid-lower lung field ABDOMEN: The upper abdomen is clear. There is no subphrenic gas. BONES AND SOFT TISSUES: No bone or soft tissue abnormalities are noted. IMPRESSION: PATCHY RIGHT MIDDLE AND LOWER LUNG CONSOLIDATION. RECOMMEND FOLLOW-UP UNTIL RESOLUTION TO EXCLUDE UNDERLYING PULMONARY PARENCHYMAL PATHOLOGY.
[2017-04-19] MEDS ORDERED: cefTRIAXone(*) 1 GM in NS 0.9% 50 ML* 50 ML IVPB ONE (15:44)
[2017-04-19] MEDS ORDERED: Azithromycin IV(*) 500 MG in NS 0.9% 250 ML* 250 ML IVPB ONE (15:44)
[2017-04-19 16:31] LABS: Albumin 3.5 g/dL (3.2-5.2); C Reactive Protein 167.33 mg/L (< 5.00); Calcium 8.7 mg/dL (8.6-10.3); EGFR African American 40.8 (>60); EGFR Non-African American 31.7 (>60); Globulin 3.1 g/dL (2-4); Magnesium 2.1 mg/dL (1.9-2.7); Potassium 4.5 mmol/L (3.5-5.0); Total Bilirubin 1.7 mg/dL (0.2-1.0); Total Protein 6.6 g/dL (6.4-8.9)
[2017-04-19 16:33] LABS: Hematocrit 35 % (42-52); Hemoglobin 11.6 g/dl (14.0-18.0); Mean Corpuscular HGB Conc 33 g/dl (31-36); Mean Corpuscular Hemoglobin 27 pg (27-31); Mean Corpuscular Volume 83 fL (80-94); Mean Platelet Volume 9 um3 (7.4-10.4); Red Blood Count 4.23 10^6/ul (4.0-5.4); Red Cell Distribution Width 18 % (10.5-15); White Blood Count 6.5 10^3/ul (3.5-10.8)
[2017-04-19 16:34] LABS: Troponin I 0.09 ng/mL (<0.04)
[2017-04-19 16:53] LABS: Urine Bacteria Absent (Absent); Urine Bilirubin Negative (Negative); Urine Glucose Negative (Negative); Urine Nitrite Negative (Negative)
[2017-04-19] MEDS ORDERED: Albuterol 2.5 MG/3 ML NEB.SOL* (0.083%) INH PRN (17:30)
[2017-04-19] MEDS ORDERED: Ondansetron INJ* 2 MG/ML VIAL IV PRN (17:30)
[2017-04-19] MEDS ORDERED: Acetaminophen TAB* 325 MG PO PRN (17:30)
[2017-04-19 17:52] LABS: TSH (Thyroid Stimulating Horm) 2.28 mcIU/mL (0.34-5.60)
[2017-04-19] MEDS ORDERED: Metoprolol Tartrate TAB* 25 MG PO ONE (19:36)
[2017-04-19] MEDS: Atorvastatin* 10 MG TAB PO SCH (20:06)
[2017-04-19] MEDS: Tamsulosin CAP* 0.4 MG PO SCH (20:07)
[2017-04-19] MEDS: Heparin VIAL(*) 5000 UNITS/ML VIAL (FIVE THOUSAND) SUBCUT SCH (21:40)
[2017-04-19] MEDS: Moisturizing CREAM* 120 GM JAR TOPICAL SCH (21:40)
--- NOTE | 2017-04-19 21:53 | ED ---
Carmenza Noguera Thomas, scribed for Nima Trotter MD on 04/19/17 at 1435 . Complex/Multi-Sys Presentation - HPI Summary HPI Summary: The patient is a 87 year old male brought by ambulance to the ED with shortness of breath. When asked why he is here, he responds "I have no idea. He complains of ankle swelling. Patient denies a PMHx of asthma and CHF. LEVEL 5 CAVEAT: HPI LIMITED DUE TO DEMENTIA. - History Of Current Complaint Time Seen by Provider: 04/19/17 14:08 Hx Obtained From: Patient Hx From Patient Unobtainable Due To: Dementia Onset/Duration: Still Present Timing: Constant Severity Currently: Moderate Associated Signs And Symptoms: Positive: Other - Leg swelling, SOB - Allergies/Home Medications Allergies/Adverse Reactions: Allergies Allergy/AdvReac Type Severity Reaction Status Date / Time No Known Allergies Allergy Verified 06/12/16 09:48 Home Medications: Home Medications Furosemide TAB* [Lasix TAB*] 20 mg PO DAILY 04/19/17 [History Confirmed 04/19/17 ] Spironolactone TAB* [Aldactone TAB 25 MG*] 25 mg PO DAILY 04/19/17 [History Confirmed 04/19/17] PMH/Surg Hx/FS Hx/Imm Hx Previously Healthy: No - LEVEL 5 CAVEAT: PMH limited by dementia Endocrine/Hematology History: Reports: Hx Anemia Denies: Hx Diabetes Cardiovascular History: Reports: Hx Congestive Heart Failure, Hx Hypercholesterolemia, Hx Hypertension, Hx Valvular Heart Disease - mitral valve dx, Other Cardiovascular Problems/Disorders - aortic stenosis Respiratory History: Reports: Hx Pleural Effusion GI History: Reports: Hx Gastroesophageal Reflux Disease History: Reports: Hx Benign Prostatic Hyperplasia Musculoskeletal History: Reports: Hx Arthritis, Hx Gout Sensory History: Reports: Hx Contacts or Glasses Opthamlomology History: Reports: Hx Contacts or Glasses Neurological History: Reports: Hx Dementia - Surgical History Surgery Procedure, Year, and Place: right knee replaced - Immunization History Date of Tetanus Vaccine: Unk Date of Influenza Vaccine: Unk - Family History Known Family History: Positive: Unknown - LVL 5 CAVEAT: Pt has dementia - Social History Alcohol Use: Rare Alcohol Amount: 2 beers/day Hx Substance Use: No Substance Use Type: Reports: None Hx Tobacco Use: Yes Smoking Status (MU): Former Smoker Type: Cigarettes Length of Time of Smoking/Using Tobacco: 30 years. Have You Smoked in the Last Year: No Review of Systems - ROS Summary Review of Systems Summary: LEVEL 5 CAVEAT: ROS limited by dementia Positive: Shortness Of Breath Positive: Other - Leg swelling All Other Systems Reviewed And Are Negative: No Physical Exam - Summary Physical Exam Summary: General: well-appearing, no pain distress Skin: warm, color reflects adequate perfusion, dry Head: normal Eyes: EOMI, STORMY ENT: normal Neck: supple, nontender Respiratory: Crackles in the lungs, bilaterally. Cardiovascular: Tachycardic, regular rhythm Abdomen: soft, nontender Bowel: present Musculoskeletal: normal, strength/ROM intact Extremities: Bilateral Pedal Edema Neurological: normal, sensory/motor intact, A&O x3 Psychological: affect/mood appropriate LEVEL 5 CAVEAT: PHYSICAL EXAM LIMITED BY DEMENTIA Triage Information Reviewed: Yes Vital Signs On Initial Exam: Initial Vitals Temp Pulse Resp BP Pulse Ox 99.7 F 99 28 138/82 0 04/19/17 14:07 04/19/17 14:07 04/19/17 14:07 04/19/17 14:07 04/19/17 14:07 Vital Signs Reviewed: Yes Completion Of Physical Exam Limited Due To: Dementia, Level 5 Diagnostics - Vital Signs Vital Signs Temp Pulse Resp BP Pulse Ox 04/19/17 18:00 142/54 04/19/17 17:30 108/60 04/19/17 17:26 24 04/19/17 17:00 92 27 124/52 94 04/19/17 16:50 94 04/19/17 16:30 105 23 113/101 93 04/19/17 16:00 135 25 100 04/19/17 15:58 73 20 105/73 96 04/19/17 15:30 140 21 174/148 80 04/19/17 15:00 144 21 147/53 86 04/19/17 14:31 28 04/19/17 14:30 137/48 04/19/17 14:07 99.7 F 99 28 138/82 0 - Laboratory Lab Results: Lab Results 04/19/17 04/19/17 04/19/17 Range/Units 16:01 16:01 16:01 WBC (3.5-10.8) 10^3/ul RBC (4.0-5.4) 10^6/ul Hgb (14.0-18.0) g/dl Hct (42-52) % MCV (80-94) fL MCH (27-31) pg MCHC (31-36) g/dl RDW (10.5-15) % Plt Count (150-450) 10^3/ul MPV (7.4-10.4) um3 Neut % (Auto) (38-83) % Lymph % (Auto) (25-47) % [place] % (Auto) (1-9) % Eos % (Auto) (0-6) % Baso % (Auto) (0-2) % Absolute Neuts (auto) (1.5-7.7) 10^3/ul Absolute Lymphs (auto) (1.0-4.8) 10^3/ul Absolute Monos (auto) (0-0.8) 10^3/ul Absolute Eos (auto) (0-0.6) 10^3/ul Absolute Basos (auto) (0-0.2) 10^3/ul Absolute Nucleated RBC 10^3/ul Nucleated RBC % INR (Anticoag Therapy) 1.07 H (0.77-1.02) APTT 27.1 (26.0-36.3) seconds Sodium 133 (133-145) mmol/L Potassium 4.5 (3.5-5.0) mmol/L Chloride 96 L (101-111) mmol/L Carbon Dioxide 29 (22-32) mmol/L Anion Gap 8 (2-11) mmol/L BUN 52 H (6-24) mg/dL Creatinine 2.00 H (0.67-1.17) mg/dL Est GFR ( Amer) 40.8 (>60) Est GFR (Non-Af Amer) 31.7 (>60) BUN/Creatinine Ratio 26.0 H (8-20) Glucose 129 H (70-100) mg/dL Lactic Acid (0.5-2.0) mmol/L Calcium 8.7 (8.6-10.3) mg/dL Magnesium 2.1 (1.9-2.7) mg/dL Total Bilirubin 1.70 H (0.2-1.0) mg/dL AST 33 (13-39) U/L ALT 30 (7-52) U/L Alkaline Phosphatase 144 H (34-104) U/L Total Creatine Kinase 72 (10-223) U/L CK-MB (CK-2) 3.4 (0.6-6.3) ng/mL Troponin I 0.09 H* (<0.04) ng/mL C-Reactive Protein 167.33 H (< 5.00) mg/L B-Natriuretic Peptide 1126 H ( - 100) pg/mL Total Protein 6.6 (6.4-8.9) g/dL Albumin 3.5 (3.2-5.2) g/dL Globulin 3.1 (2-4) g/dL Albumin/Globulin Ratio 1.1 (1-3) Lipase 56 (11.0-82.0) U/L TSH 2.28 (0.34-5.60) mcIU/mL Urine Color Urine Appearance Urine pH (5-9) Ur Specific [place] (1.010-1.030) Urine Protein (Negative) Urine Ketones (Negative) Urine Blood (Negative) Urine Nitrate (Negative) Urine Bilirubin (Negative) Urine Urobilinogen (Negative) Ur Leukocyte Esterase (Negative) Urine WBC (Auto) (Absent) Urine RBC (Auto) (Absent) Ur Squamous Epith Cells (Absent) Urine Bacteria (Absent) Hyaline Casts (Absent) Urine Glucose (Negative) Influenza A (Rapid) (Negative) Influenza B (Rapid) (Negative) 04/19/17 04/19/17 04/19/17 Range/Units 16:01 16:01 16:25 WBC 6.5 (3.5-10.8) 10^3/ul RBC 4.23 (4.0-5.4) 10^6/ul Hgb 11.6 L (14.0-18.0) g/dl Hct 35 L (42-52) % MCV 83 (80-94) fL MCH 27 (27-31) pg MCHC 33 (31-36) g/dl RDW 18 H (10.5-15) % Plt Count 156 (150-450) 10^3/ul MPV 9 (7.4-10.4) um3 Neut % (Auto) 86.2 H (38-83) % Lymph % (Auto) 3.8 L (25-47) % [place] % (Auto) 8.8 (1-9) % Eos % (Auto) 0.1 (0-6) % Baso % (Auto) 1.1 (0-2) % Absolute Neuts (auto) 5.6 (1.5-7.7) 10^3/ul Absolute Lymphs (auto) 0.2 L (1.0-4.8) 10^3/ul Absolute Monos (auto) 0.6 (0-0.8) 10^3/ul Absolute Eos (auto) 0 (0-0.6) 10^3/ul Absolute Basos (auto) 0.1 (0-0.2) 10^3/ul Absolute Nucleated RBC 0.02 10^3/ul Nucleated RBC % 0.4 INR (Anticoag Therapy) (0.77-1.02) APTT (26.0-36.3) seconds Sodium (133-145) mmol/L Potassium (3.5-5.0) mmol/L Chloride (101-111) mmol/L Carbon Dioxide (22-32) mmol/L Anion Gap (2-11) mmol/L BUN (6-24) mg/dL Creatinine (0.67-1.17) mg/dL Est GFR ( Amer) (>60) Est GFR (Non-Af Amer) (>60) BUN/Creatinine Ratio (8-20) Glucose (70-100) mg/dL Lactic Acid 1.0 (0.5-2.0) mmol/L Calcium (8.6-10.3) mg/dL Magnesium (1.9-2.7) mg/dL Total Bilirubin (0.2-1.0) mg/dL AST (13-39) U/L ALT (7-52) U/L Alkaline Phosphatase (34-104) U/L Total Creatine Kinase (10-223) U/L CK-MB (CK-2) (0.6-6.3) ng/mL Troponin I (<0.04) ng/mL C-Reactive Protein (< 5.00) mg/L B-Natriuretic Peptide ( - 100) pg/mL Total Protein (6.4-8.9) g/dL Albumin (3.2-5.2) g/dL Globulin (2-4) g/dL Albumin/Globulin Ratio (1-3) Lipase (11.0-82.0) U/L TSH (0.34-5.60) mcIU/mL Urine Color Yellow Urine Appearance Cloudy Urine pH 5.0 (5-9) Ur Specific [place] 1.011 (1.010-1.030) Urine Protein 1+(30 mg/dl) H (Negative) Urine Ketones Negative (Negative) Urine Blood 1+ H (Negative) Urine Nitrate Negative (Negative) Urine Bilirubin Negative (Negative) Urine Urobilinogen Negative (Negative) Ur Leukocyte Esterase Negative (Negative) Urine WBC (Auto) Trace(0-5/hpf) (Absent) Urine RBC (Auto) Absent (Absent) Ur Squamous Epith Cells Present H (Absent) Urine Bacteria Absent (Absent) Hyaline Casts Present H (Absent) Urine Glucose Negative (Negative) Influenza A (Rapid) (Negative) Influenza B (Rapid) (Negative) 04/19/17 Range/Units 17:18 WBC (3.5-10.8) 10^3/ul RBC (4.0-5.4) 10^6/ul Hgb (14.0-18.0) g/dl Hct (42-52) % MCV (80-94) fL MCH (27-31) pg MCHC (31-36) g/dl RDW (10.5-15) % Plt Count (150-450) 10^3/ul MPV (7.4-10.4) um3 Neut % (Auto) (38-83) % Lymph % (Auto) (25-47) % [place] % (Auto) (1-9) % Eos % (Auto) (0-6) % Baso % (Auto) (0-2) % Absolute Neuts (auto) (1.5-7.7) 10^3/ul Absolute Lymphs (auto) (1.0-4.8) 10^3/ul Absolute Monos (auto) (0-0.8) 10^3/ul Absolute Eos (auto) (0-0.6) 10^3/ul Absolute Basos (auto) (0-0.2) 10^3/ul Absolute Nucleated RBC 10^3/ul Nucleated RBC % INR (Anticoag Therapy) (0.77-1.02) APTT (26.0-36.3) seconds Sodium (133-145) mmol/L Potassium (3.5-5.0) mmol/L Chloride (101-111) mmol/L Carbon Dioxide (22-32) mmol/L Anion Gap (2-11) mmol/L BUN (6-24) mg/dL Creatinine (0.67-1.17) mg/dL Est GFR ( Amer) (>60) Est GFR (Non-Af Amer) (>60) BUN/Creatinine Ratio (8-20) Glucose (70-100) mg/dL Lactic Acid (0.5-2.0) mmol/L Calcium (8.6-10.3) mg/dL Magnesium (1.9-2.7) mg/dL Total Bilirubin (0.2-1.0) mg/dL AST (13-39) U/L ALT (7-52) U/L Alkaline Phosphatase (34-104) U/L Total Creatine Kinase (10-223) U/L CK-MB (CK-2) (0.6-6.3) ng/mL Troponin I (<0.04) ng/mL C-Reactive Protein (< 5.00) mg/L B-Natriuretic Peptide ( - 100) pg/mL Total Protein (6.4-8.9) g/dL Albumin (3.2-5.2) g/dL Globulin (2-4) g/dL Albumin/Globulin Ratio (1-3) Lipase (11.0-82.0) U/L TSH (0.34-5.60) mcIU/mL Urine Color Urine Appearance Urine pH (5-9) Ur Specific [place] (1.010-1.030) Urine Protein (Negative) Urine Ketones (Negative) Urine Blood (Negative) Urine Nitrate (Negative) Urine Bilirubin (Negative) Urine Urobilinogen (Negative) Ur Leukocyte Esterase (Negative) Urine WBC (Auto) (Absent) Urine RBC (Auto) (Absent) Ur Squamous Epith Cells (Absent) Urine Bacteria (Absent) Hyaline Casts (Absent) Urine Glucose (Negative) Influenza A (Rapid) Negative (Negative) Influenza B (Rapid) Negative (Negative) Result Diagrams: 04/19/17 16:01 04/19/17 16:01 Lab Statement: Any lab studies that have been ordered have been reviewed, and results considered in the medical decision making process. - Radiology CXR Xray Interpretation: Positive (See Comments) - PATCHY RIGHT MIDDLE AND LOWER LUNG CONSOLIDATION. RECOMMEND FOLLOW-UP UNTIL RESOLUTION TO EXCLUDE UNDERLYING PULMONARY PARENCHYMAL PATHOLOGY. Dr. Trotter has reviewed this report. Radiology Interpretation Completed By: Radiologist - EKG 1552 Cardiac Rate: Tachycardia EKG Rhythm: Atrial Fibrillation - 102 BPM Ectopy: PVCs EKG Interpretation: [place] 1600 Cardiac Rate: Tachycardia EKG Rhythm: Sinus Tachycardia - 135 BPM Complex Multi-Symp Course/Dx Course Of Treatment: ADMIT HOSPITALIST. CRITICAL CARE TIME LESS THAN 30 MINUTES. - Diagnoses Provider Diagnoses: CHF (congestive heart failure), Elevated troponin - Physician Notifications Discussed Care Of Patient With: Jourdan Cardenas Time Discussed With Above Provider: 16:11 Instructed by Provider To: Admit As Inpatient Discharge - Discharge Plan Condition: Fair Disposition: ADMITTED TO [facility] The documentation as recorded by the Carmenza adler Thomas accurately reflects the service I personally performed and the decisions made by , Nima Trotter MD.
--- NOTE | 2017-04-19 21:54 | HP ---
CC: Wyatt Denney PA-C * HISTORY AND PHYSICAL: DATE OF ADMISSION: 04/19/17 PROVIDER: Swetha Reyes NP ATTENDING PHYSICIAN: Dr. Jourdan Cardenas * (as dictated by Swetha Reyes NP). PRIMARY CARE PROVIDER: Wyatt Denney PA-C CHIEF COMPLAINT: Hypoxia. HISTORY OF PRESENT ILLNESS: Mr. Figueroa is an 87-year-old male patient, who resides at [facility], who was sent to the ED for evaluation of weakness and concern for low room air sats. The patient was noted to have a room air sat at 68%. It was refractory to oxygen via nasal cannula and he required BiPAP on the way into the emergency room. He is now currently on an OxyMask. He is pleasant, lying in bed, but has significant dementia and is unable to provide much of a history. I spoke with his son, Hola Figueroa, who states that over the past few days, his father has been more tired and has not really been getting out of bed or mobilizing much. He has been refusing meals and refusing medications and today had incontinence of bowel and bladder, which is outside of his normal. I did attempt to reach [facility] and left a message but they have not received any call back from the facility as of yet. In the ER, the patient was placed on 15 L OxyMask, which is now on the 5 L. He is maintaining O2 saturation of 94% to 95%. He does not appear to be in any acute distress. He also received IV furosemide as well as ceftriaxone and azithromycin with concern for pneumonia. On his chest x-ray, there was concern for developing right middle and lower lung consolidation. The patient also has ventricular bigeminy and trigeminy on his telemetry and EKG here in the ER, though he has denied chest pain or any discomfort. Given all these findings, Hospital Medicine was consulted for admission. Please note, the patient has a DNR in file and the family has previously stated and continue to state that they would like to keep him comfortable but did not want to pursue aggressive treatments if possible. PAST MEDICAL HISTORY: Includes dementia, hypertension, congestive heart failure , BPH, and hyperlipidemia. HOME MEDICATIONS: 1. Furosemide 20 mg daily. 2. Hydrocerin cream topical t.i.d. 3. Magnesium oxide 400 mg daily. 4. Aspirin 81 mg daily. 5. Metoprolol succinate XL 12.5 mg daily. 6. Albuterol inhaler 2 puffs inhaled q.6 hours p.r.n. 7. Acetaminophen 650 mg q.4 hours p.r.n. 8. Tamsulosin 0.4 mg at bedtime. 9. Spironolactone 25 mg daily. 10. Simvastatin 20 mg at bedtime. ALLERGIES: No known allergies. FAMILY HISTORY: Unobtainable secondary to dementia. SOCIAL HISTORY: The patient has a remote history of smoking. He does not drink alcohol or use illicit drugs. 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 He is . He lives at [facility]. He has 3 children and his son, Hola Figueroa, is his healthcare proxy. REVIEW OF SYSTEMS: A 14-point review of systems was attempted. Review of systems was mostly unobtainable secondary to poor history from the patient secondary to his dementia. PHYSICAL EXAMINATION VITAL SIGNS: Temperature 99.7, heart rate 86, respiratory rate 24, blood pressure 124/52, O2 saturation 94% on 5 L nasal cannula. HEENT: Head is atraumatic and normocephalic. Pupils are equal, round, and reactive to light. Extraocular movements are intact. Oral mucosa is moist. There is no oropharyngeal erythema or exudate. NECK: Supple. No lymphadenopathy appreciated. No JVD noted. LUNGS: Rales heard in the bilateral bases and diminished lung sounds in the right of the middle and lower lobes. No accessory muscle use is noted. CARDIAC: S1 and S2 heart sounds, irregular rate and rhythm. No murmurs, rubs, or gallops appreciated. The patient has 3+ pitting edema from feet to thighs. ABDOMEN: Soft, nontender, nondistended. Bowel sounds are normoactive times all 4 quadrants. MUSCULOSKELETAL: No clubbing or cyanosis noted. The patient appears to have full range of motion in all extremities. NEUROLOGIC: The patient is alert, oriented to self. He does know he is in the hospital but cannot tell me anything regards to time or recent situation. No focal deficits noted. Strength is about 4/5 in the upper and lower extremities. SKIN: Appears warm and dry. Limited assessment. The patient has weeping edema to the left lower extremity. DIAGNOSTIC STUDIES/LAB DATA: CBC: WBC 6.5, hemoglobin 11.6, hematocrit 35, platelet count 156. CMP: Sodium 133, potassium 4.5, chloride 96, carbon dioxide 29, BUN 52, creatinine 2.00, glucose 129, lactic acid 1.0, calcium 8.7, magnesium 2.1. Total bilirubin 1.7, AST 33, ALT 30, alk phos 144. Total CK 72. Troponin 0.09. CRP was 67. BNP 1126. Albumin 3.5. TSH 2.28. Urinalysis shows 1+ blood. EKG and chest x-ray as per above. ASSESSMENT AND PLAN: This is an 87-year-old male patient who presents today with hypoxia, cough, and weakness. He will be admitted as an observation patient to the telemetry unit. The plan is as follows: 1. Hypoxia. Suspect this is secondary to developing pneumonia. The patient presents with concern for acute hypoxic respiratory failure likely secondary to developing pneumonia as well as congestive heart failure exacerbation. The patient likely has exacerbation secondary to the stress of pneumonia as well as not taking his medications. He has received Lasix in the ER with good urinary output. We will give the patient 1 more dose of IV Lasix before continuing him on his home medications starting tomorrow. He does not appear to be in significant distress after receiving oxygen and the breathing treatments and furosemide therapy upon arrival. 2. In regards to his pneumonia, we will continue him on ceftriaxone and azithromycin. I will also check a flu swab. Pneumonia would be community acquired. 3. Congestive heart failure with mild exacerbation. Again, I suspect that the concerning factor was recent illness and not taking medications. At this point in time, the patient can be continued on his home medication regimen, which does include metoprolol, spironolactone, and furosemide, which we will continue with hold parameters. I will give him 1 additional dose of IV furosemide and we could certainly switch him to p.o. if he is ready for discharge. He is apparently fluid overloaded, although his lower extremities are significantly swollen and weeping. Apparently, the patient has lower extremity edema at baseline. Order for Alonso wraps from foot to thigh to help with lower extremity edema. 4. Acute on chronic kidney injury. Suspect secondary to poor p.o. intake. Continue to monitor. Recheck BMP tomorrow especially in light of IV furosemide. 5. Elevated total bilirubin. Suspect this is secondary to viral illness. Continue to monitor. 6. Elevated troponin. Suspect some demand ischemia secondary to congestive heart failure exacerbation. Continue to trend. 7. Dementia. Continue supportive care. 8. Hypertension, currently controlled. Continue home metoprolol with hold parameters. 9. Hyperlipidemia. Continue home simvastatin. 10. Benign prostatic hyperplasia. Continue Flomax. 11. DVT prophylaxis. Subcu heparin. 12. FEN. The patient is ordered low-sodium diet. 13. Code status. He is a DNR. TIME SPENT: Approximately 60 minutes was spent on this admission, with more than half of that time spent [id number] with the patient obtaining history and physical, performing physical examination, and reviewing the plan of care. Plan of care was also reviewed with my attending, Dr. Cardenas; he is in agreement. SWETHA REYES, ZARA [id number]/CPS #: [id number] MTDD
[2017-04-20 05:20] LABS: Hematocrit 33 % (42-52); Hemoglobin 10.9 g/dl (14.0-18.0); Mean Corpuscular HGB Conc 33 g/dl (31-36); Mean Corpuscular Hemoglobin 27 pg (27-31); Mean Corpuscular Volume 83 fL (80-94); Mean Platelet Volume 9 um3 (7.4-10.4); Red Blood Count 3.98 10^6/ul (4.0-5.4); Red Cell Distribution Width 18 % (10.5-15); White Blood Count 6.4 10^3/ul (3.5-10.8)
[2017-04-20] MEDS: Heparin VIAL(*) 5000 UNITS/ML VIAL (FIVE THOUSAND) SUBCUT SCH ×3 (05:21→20:56)
[2017-04-20 05:41] LABS: BUN/Creatinine Ratio 29.1 (8-20); Calcium 8.5 mg/dL (8.6-10.3); EGFR African American 39.4 (>60); EGFR Non-African American 30.6 (>60); Potassium 4.6 mmol/L (3.5-5.0)
[2017-04-20] MEDS ORDERED: Furosemide IV* 10 MG/ML VIAL (40 MG) IV SLOW PU ONE (09:00)
[2017-04-20] MEDS: Magnesium Oxide TAB* 400 MG PO SCH (10:13)
[2017-04-20] MEDS: Metoprolol Succinate XL TAB* 25 MG PO SCH (10:13)
[2017-04-20] MEDS: Aspirin EC Low Dose* 81 MG TAB.EC PO SCH (10:13)
[2017-04-20] MEDS: Spironolactone TAB* 25 MG PO SCH (10:13)
[2017-04-20] MEDS: Moisturizing CREAM* 120 GM JAR TOPICAL SCH ×3 (10:13→20:56)
--- NOTE | 2017-04-20 13:22 | PN ---
Subjective Date of Service: 04/20/17 Interval History: Patient seen and examined at bedside. Denies fever, chills, shortness of breath , chest discomfort, N/V/D. Tele: Afib with multiple PVCs, rate 100's. HR up to 130's at times. Family History: Unchanged from Admission Social History: Unchanged from Admission Past Medical History: Unchanged from Admission Objective Active Medications: Acetaminophen (Tylenol Tab*) 650 mg PO Q4H PRN Reason: FEVER/PAIN Albuterol (Ventolin 2.5 Mg/3 Ml Neb.Susu*) 2.5 mg INH Q4H PRN Reason: sob/ wheezing Aspirin (Aspirin Ec Low Dose*) 81 mg PO DAILY [facility] Atorvastatin Calcium (Lipitor*) 10 mg PO BEDTIME [facility] Heparin Sodium (Porcine) (Heparin Vial(*)) 5,000 units SUBCUT Q8HR [facility] Ceftriaxone Sodium 1 gm/ (Sodium Chloride) 50 mls @ 200 mls/hr IVPB Q24H [facility] Azithromycin 250 mg/ Sodium (Chloride) 250 mls @ 250 mls/hr IVPB Q24H [facility] Stop: 04/23/17 17:59 Magnesium Oxide (Magox 400 Tab*) 400 mg PO DAILY [facility] Metoprolol Succinate (Toprol Xl Tab*) 12.5 mg PO DAILY [facility] Multi-Ingredient Ointment (Hydrocerin*) 1 applic TOPICAL TID [facility] Ondansetron HCl (Zofran Inj*) 4 mg IV Q6H PRN Reason: NAUSEA/VOMITING Spironolactone (Aldactone Tab*) 25 mg PO DAILY [facility] Tamsulosin HCl (Flomax Cap*) 0.4 mg PO BEDTIME [facility] Vital Signs - 8 hr 04/20/17 04/20/17 04/20/17 07:39 11:22 11:55 Temperature 97.3 F 97.6 F Pulse Rate 146 55 Respiratory 24 22 Rate Blood Pressure 119/50 182/145 120/50 (mmHg) O2 Sat by Pulse 98 96 Oximetry Oxygen Devices in Use Now: Nasal Cannula - 6L Appearance: NAD, laying in bed Ears/Nose/Mouth/Throat: Mucous Membranes Moist Respiratory: Symmetrical Chest Expansion and Respiratory Effort, - - Crackles Cardiovascular: - - Heart rate irregular Abdominal: NL Sounds; No Tenderness; No Distention Extremities: - - Bilateral LE edema Skin: - - TITO wraps to bilateral LE Neurological: NL Muscle Strength and Tone, - - Alert and Oriented to Person, confused Lines/Tubes/Other Access: Clean, Dry and Intact Peripheral IV - site benign Nutrition: Taking PO's Result Diagrams: 04/20/17 05:02 04/20/17 05:02 Additional Lab and Data: Microbiology and Other Data: Microbiology 04/19/17 19:10 Nasal Screen MRSA (PCR)(NIGHAT) - Final Nasal Mrsa Negative EKG Data: EKG 04/20/17 - Afib, rate 133 Assess/Plan/Problems-Billing Assessment: Mr. Figueroa is an 87 yo male with PMH significant for dementia, HTN, CHF, BPH and HLD who presented to the emergency room with hypoxia, cough, and weakness and was found to have acute hypoxic respiratory failure, PNA and CHF exacerbation. - Patient Problems (1) Acute respiratory failure with hypoxia Code(s): J96.01 - ACUTE RESPIRATORY FAILURE WITH HYPOXIA SNOMED Code(s): 82990943 Comment: - Suspect secondary to PNA and CHF exacerbation - Continue supplemental O2 (2) Pneumonia Code(s): J18.9 - PNEUMONIA, UNSPECIFIED ORGANISM SNOMED Code(s): 508717161 Comment: - Community aquired - Afebrile and no leukocytosis - Influenza negative - Continue ceftriaxone and azithromycin (3) Systolic CHF Code(s): I50.20 - UNSPECIFIED SYSTOLIC (CONGESTIVE) HEART FAILURE SNOMED Code( s): 111241546 Comment: - With mild exacerbation - 06/2016 EF 50-55% with no significant changes from previous echo in 2014 - Strict I+O's and daily weights - Continue LE wraps - Continue home furosemide, spironolactone and metoprolol (4) OLAYINKA (acute kidney injury) Code(s): N17.9 - ACUTE KIDNEY FAILURE, UNSPECIFIED SNOMED Code(s): 72471587 Comment: - Acute on chronic - Suspect secondary to poor PO intake - Recheck BMP in AM (5) Elevated bilirubin Code(s): R17 - UNSPECIFIED JAUNDICE SNOMED Code(s): 293821876 Comment: - Suspect secondary to viral illness - Recheck in the AM (6) Elevated troponin Code(s): R79.89 - OTHER SPECIFIED ABNORMAL FINDINGS OF BLOOD CHEMISTRY SNOMED Code(s): 683422332 Comment: - Troponin 0.08, 0.08, 0.09 - Patient continues to deny chest pain. - Per patient's family, no further cardiac workup. - Suspect demand ischemia (7) Afib Code(s): I48.91 - UNSPECIFIED ATRIAL FIBRILLATION SNOMED Code(s): 49398293 Comment: - History paroxysmal - Will give extra dose of metoprolol 5mg IV now - Continue metoprolol (8) BPH (benign prostatic hyperplasia) Code(s): N40.0 - BENIGN PROSTATIC HYPERPLASIA WITHOUT LOWER URINRY TRACT SYMP SNOMED Code(s): 956882096 Comment: - Continue tamsulosin. (9) Dementia Code(s): F03.90 - UNSPECIFIED DEMENTIA WITHOUT BEHAVIORAL DISTURBANCE SNOMED Code(s): 34036316 Comment: - Supportive care (10) Hyperlipemia Code(s): E78.5 - HYPERLIPIDEMIA, UNSPECIFIED SNOMED Code(s): 50931019 (11) DVT prophylaxis Code(s): [id number] - SNOMED Code(s): 736456258 Comment: - SQ Heparin (12) DNR (do not resuscitate) Status and Disposition: OBV to Inpatient. Discharge to home when medically stable.
[2017-04-20] MEDS ORDERED: Metoprolol Tartrate IV* 1 MG/ML 5 ML VIAL IV ONE (14:14)
[2017-04-20] MEDS: cefTRIAXone(*) 1 GM in NS 0.9% 50 ML* 50 ML IVPB SCH (16:27)
[2017-04-20] MEDS: Azithromycin IV(*) 250 MG in NS 0.9% 250 ML* 250 ML IVPB SCH (16:59)
[2017-04-20] MEDS: Tamsulosin CAP* 0.4 MG PO SCH (20:56)
[2017-04-20] MEDS: Atorvastatin* 10 MG TAB PO SCH (20:56)
[2017-04-20] MEDS ORDERED: NS 0.9% 500 ML* 500 ML IV ONE (22:00)
[2017-04-20] MEDS: guaiFENesin ER TAB 600 MG PO SCH (22:29)
[2017-04-21] MEDS: Heparin VIAL(*) 5000 UNITS/ML VIAL (FIVE THOUSAND) SUBCUT SCH ×3 (05:30→20:42)
[2017-04-21 06:24] LABS: Hematocrit 35 % (42-52); Hemoglobin 11.3 g/dl (14.0-18.0); Mean Corpuscular HGB Conc 33 g/dl (31-36); Mean Corpuscular Hemoglobin 28 pg (27-31); Mean Corpuscular Volume 84 fL (80-94); Mean Platelet Volume 8 um3 (7.4-10.4); Red Cell Distribution Width 18 % (10.5-15); White Blood Count 5.9 10^3/ul (3.5-10.8)
[2017-04-21 06:41] LABS: Albumin 3.2 g/dL (3.2-5.2); BUN/Creatinine Ratio 29.7 (8-20); Calcium 8.4 mg/dL (8.6-10.3); EGFR African American 38.1 (>60); EGFR Non-African American 29.6 (>60); Globulin 2.7 g/dL (2-4); Potassium 4.7 mmol/L (3.5-5.0); Total Bilirubin 0.8 mg/dL (0.2-1.0); Total Protein 5.9 g/dL (6.4-8.9)
--- NOTE | 2017-04-21 09:35 | PN ---
Subjective Date of Service: 04/21/17 Interval History: Patient seen and examined at bedside. Denies fever, chills, shortness of breath , chest discomfort, palpitations, N/V/D. Occasional cough that is productive, but Pt swallows the mucous. Pt's thinks he is on 2L via NC at home, but is unsure. Tele: Afib rate 90-100's with PVCs. Pt noted to intermittently have HR 130's. Family History: Unchanged from Admission Social History: Unchanged from Admission Past Medical History: Unchanged from Admission Objective Active Medications: Acetaminophen (Tylenol Tab*) 650 mg PO Q4H PRN Reason: FEVER/PAIN Albuterol (Ventolin 2.5 Mg/3 Ml Neb.Susu*) 2.5 mg INH Q4H PRN Reason: sob/ wheezing Aspirin (Aspirin Ec Low Dose*) 81 mg PO DAILY [facility] Atorvastatin Calcium (Lipitor*) 10 mg PO BEDTIME [facility] Guaifenesin (Mucinex*) 1,200 mg PO BID [facility] Heparin Sodium (Porcine) (Heparin Vial(*)) 5,000 units SUBCUT Q8HR [facility] Ceftriaxone Sodium 1 gm/ (Sodium Chloride) 50 mls @ 200 mls/hr IVPB Q24H [facility] Azithromycin 250 mg/ Sodium (Chloride) 250 mls @ 250 mls/hr IVPB Q24H [facility] Stop: 04/23/17 17:59 Magnesium Oxide (Magox 400 Tab*) 400 mg PO DAILY [facility] Metoprolol Succinate (Toprol Xl Tab*) 12.5 mg PO DAILY [facility] Multi-Ingredient Ointment (Hydrocerin*) 1 applic TOPICAL TID [facility] Ondansetron HCl (Zofran Inj*) 4 mg IV Q6H PRN Reason: NAUSEA/VOMITING Spironolactone (Aldactone Tab*) 25 mg PO DAILY [facility] Tamsulosin HCl (Flomax Cap*) 0.4 mg PO BEDTIME [facility] Vital Signs - 8 hr 04/21/17 04/21/17 04:32 07:28 Temperature 97.5 F Pulse Rate 104 103 Respiratory 16 18 Rate Blood Pressure 102/46 114/74 (mmHg) O2 Sat by Pulse 93 95 Oximetry Oxygen Devices in Use Now: Nasal Cannula - 6L Appearance: NAD, sitting up in a chair Ears/Nose/Mouth/Throat: Mucous Membranes Moist Respiratory: Symmetrical Chest Expansion and Respiratory Effort, - - Crackles and rhonchi bilateral with exp wheeze. Rhonchi clear with cough Cardiovascular: - - Heart rate irregular Abdominal: NL Sounds; No Tenderness; No Distention Extremities: - - Moderate edema to bilateral LE Skin: No Rash or Ulcers Neurological: NL Muscle Strength and Tone, - - Alert and Oriented to Person Lines/Tubes/Other Access: Clean, Dry and Intact Peripheral IV - site benign Nutrition: Taking PO's Result Diagrams: 04/21/17 06:02 04/21/17 06:02 Additional Lab and Data: Microbiology and Other Data: Microbiology 04/19/17 19:10 Nasal Screen MRSA (PCR)(NIGHAT) - Final Nasal Mrsa Negative EKG Data: EKG 04/20/17 - Afib, rate 133 Assess/Plan/Problems-Billing Assessment: Mr. Figueroa is an 87 yo male with PMH significant for dementia, HTN, CHF, BPH and HLD who presented to the emergency room with hypoxia, cough, and weakness and was found to have acute hypoxic respiratory failure, PNA and CHF exacerbation. - Patient Problems (1) Acute respiratory failure with hypoxia Code(s): J96.01 - ACUTE RESPIRATORY FAILURE WITH HYPOXIA SNOMED Code(s): 92792178 Comment: - Acute on chronic - Suspect secondary to PNA and CHF exacerbation - Continue supplemental O2 (2) Pneumonia Code(s): J18.9 - PNEUMONIA, UNSPECIFIED ORGANISM SNOMED Code(s): 657799393 Comment: - Community aquired - Afebrile and no leukocytosis - Influenza negative - Continue ceftriaxone and azithromycin (3) Systolic CHF Code(s): I50.20 - UNSPECIFIED SYSTOLIC (CONGESTIVE) HEART FAILURE SNOMED Code( s): 793459529 Comment: - With mild exacerbation - 06/2016 EF 50-55% with no significant changes from previous echo in 2014 - Strict I+O's and daily weights - Continue LE wraps - Continue home furosemide, spironolactone and metoprolol (4) OLAYINKA (acute kidney injury) Code(s): N17.9 - ACUTE KIDNEY FAILURE, UNSPECIFIED SNOMED Code(s): 74983747 Comment: - Acute on chronic, suspect near baseline - Suspect secondary to poor PO intake - Recheck BMP in AM (5) Elevated bilirubin Code(s): R17 - UNSPECIFIED JAUNDICE SNOMED Code(s): 541290060 Comment: - Resolved - Suspect secondary to viral illness (6) Elevated troponin Code(s): R79.89 - OTHER SPECIFIED ABNORMAL FINDINGS OF BLOOD CHEMISTRY SNOMED Code(s): 947096496 Comment: - Troponin 0.08, 0.08, 0.09 - Patient continues to deny chest pain. - Per patient's family, no further cardiac workup. - Suspect demand ischemia (7) Afib Code(s): I48.91 - UNSPECIFIED ATRIAL FIBRILLATION SNOMED Code(s): 19891793 Comment: - History paroxysmal - Continue metoprolol (8) BPH (benign prostatic hyperplasia) Code(s): N40.0 - BENIGN PROSTATIC HYPERPLASIA WITHOUT LOWER URINRY TRACT SYMP SNOMED Code(s): 754869087 Comment: - Continue tamsulosin. (9) Dementia Code(s): F03.90 - UNSPECIFIED DEMENTIA WITHOUT BEHAVIORAL DISTURBANCE SNOMED Code(s): 61231788 Comment: - Supportive care (10) Hyperlipemia Code(s): E78.5 - HYPERLIPIDEMIA, UNSPECIFIED SNOMED Code(s): 21160434 (11) DVT prophylaxis Code(s): [id number] - SNOMED Code(s): 081057013 Comment: - SQ Heparin (12) DNR (do not resuscitate) Status and Disposition: Inpatient. Discharge to home when medically stable.
[2017-04-21] MEDS: guaiFENesin ER TAB 600 MG PO SCH ×2 (10:03→20:42)
[2017-04-21] MEDS: Metoprolol Succinate XL TAB* 25 MG PO SCH (10:04)
[2017-04-21] MEDS: Aspirin EC Low Dose* 81 MG TAB.EC PO SCH (10:04)
[2017-04-21] MEDS: Magnesium Oxide TAB* 400 MG PO SCH (10:04)
[2017-04-21] MEDS: Spironolactone TAB* 25 MG PO SCH (10:04)
[2017-04-21] MEDS: Moisturizing CREAM* 120 GM JAR TOPICAL SCH ×3 (10:06→20:45)
[2017-04-21] MEDS: cefTRIAXone(*) 1 GM in NS 0.9% 50 ML* 50 ML IVPB SCH (16:21)
[2017-04-21] MEDS: Azithromycin IV(*) 250 MG in NS 0.9% 250 ML* 250 ML IVPB SCH (16:59)
[2017-04-21] MEDS: Tamsulosin CAP* 0.4 MG PO SCH (20:42)
[2017-04-21] MEDS: Atorvastatin* 10 MG TAB PO SCH (20:42)
[2017-04-22] MEDS: Heparin VIAL(*) 5000 UNITS/ML VIAL (FIVE THOUSAND) SUBCUT SCH ×2 (06:15→13:06)
[2017-04-22] MEDS: guaiFENesin ER TAB 600 MG PO SCH (08:12)
[2017-04-22] MEDS: Aspirin EC Low Dose* 81 MG TAB.EC PO SCH (08:12)
[2017-04-22] MEDS: Moisturizing CREAM* 120 GM JAR TOPICAL SCH ×2 (08:12→13:06)
[2017-04-22] MEDS: Spironolactone TAB* 25 MG PO SCH (08:12)
[2017-04-22] MEDS: Metoprolol Succinate XL TAB* 25 MG PO SCH (08:12)
[2017-04-22] MEDS: Magnesium Oxide TAB* 400 MG PO SCH (08:12)
[2017-04-22 11:28] VITALS: BP 134/69
--- NOTE | 2017-04-22 12:59 | PN ---
Subjective Date of Service: 04/22/17 Interval History: Patient seen and examined at bedside. Denies fever, chills, shortness of breath , chest discomfort, N/V/D. Tele: Afib, rate 80's. PVCs noted. Family History: Unchanged from Admission Social History: Unchanged from Admission Past Medical History: Unchanged from Admission Objective Active Medications: Acetaminophen (Tylenol Tab*) 650 mg PO Q4H PRN Reason: FEVER/PAIN Albuterol (Ventolin 2.5 Mg/3 Ml Neb.Susu*) 2.5 mg INH Q4H PRN Reason: sob/ wheezing Aspirin (Aspirin Ec Low Dose*) 81 mg PO DAILY [facility] Atorvastatin Calcium (Lipitor*) 10 mg PO BEDTIME [facility] Guaifenesin (Mucinex*) 1,200 mg PO BID [facility] Heparin Sodium (Porcine) (Heparin Vial(*)) 5,000 units SUBCUT Q8HR [facility] Ceftriaxone Sodium 1 gm/ (Sodium Chloride) 50 mls @ 200 mls/hr IVPB Q24H [facility] Azithromycin 250 mg/ Sodium (Chloride) 250 mls @ 250 mls/hr IVPB Q24H [facility] Stop: 04/23/17 17:59 Magnesium Oxide (Magox 400 Tab*) 400 mg PO DAILY [facility] Metoprolol Succinate (Toprol Xl Tab*) 12.5 mg PO DAILY [facility] Multi-Ingredient Ointment (Hydrocerin*) 1 applic TOPICAL TID [facility] Ondansetron HCl (Zofran Inj*) 4 mg IV Q6H PRN Reason: NAUSEA/VOMITING Spironolactone (Aldactone Tab*) 25 mg PO DAILY [facility] Tamsulosin HCl (Flomax Cap*) 0.4 mg PO BEDTIME [facility] Vital Signs - 8 hr 04/22/17 04/22/17 04/22/17 07:39 07:54 11:22 Temperature 97.8 F 98.0 F Pulse Rate 53 74 Respiratory 16 14 14 Rate Blood Pressure 110/53 134/69 (mmHg) O2 Sat by Pulse 92 95 Oximetry Oxygen Devices in Use Now: Nasal Cannula - 1L Appearance: NAD, sitting up in a chair. Ears/Nose/Mouth/Throat: Mucous Membranes Moist Respiratory: Symmetrical Chest Expansion and Respiratory Effort, - - Crackles bilateral Cardiovascular: NL Sounds; No Murmurs; No JVD, - - Heart rate irregular Abdominal: NL Sounds; No Tenderness; No Distention Extremities: - - 1-2+ bilateral LE edema Skin: No Rash or Ulcers Neurological: NL Muscle Strength and Tone, - - Alert and Oriented to Person, confused Lines/Tubes/Other Access: Clean, Dry and Intact Peripheral IV - site benign Nutrition: Taking PO's Result Diagrams: 04/21/17 06:02 04/21/17 06:02 Additional Lab and Data: Microbiology and Other Data: Microbiology 04/19/17 19:10 Nasal Screen MRSA (PCR)(NIGHAT) - Final Nasal Mrsa Negative EKG Data: EKG 04/20/17 - Afib, rate 133 Assess/Plan/Problems-Billing Assessment: Mr. Figueroa is an 87 yo male with PMH significant for dementia, HTN, CHF, BPH and HLD who presented to the emergency room with hypoxia, cough, and weakness and was found to have acute hypoxic respiratory failure, PNA and CHF exacerbation. - Patient Problems (1) Acute respiratory failure with hypoxia Code(s): J96.01 - ACUTE RESPIRATORY FAILURE WITH HYPOXIA SNOMED Code(s): 12606907 Comment: - Acute on chronic - Suspect secondary to PNA and CHF exacerbation - Continue supplemental O2 (2) Pneumonia Code(s): J18.9 - PNEUMONIA, UNSPECIFIED ORGANISM SNOMED Code(s): 564591850 Comment: - Community aquired - Afebrile and no leukocytosis - Influenza negative - Continue ceftriaxone and azithromycin (3) Systolic CHF Code(s): I50.20 - UNSPECIFIED SYSTOLIC (CONGESTIVE) HEART FAILURE SNOMED Code( s): 559673765 Comment: - With mild exacerbation - 06/2016 EF 50-55% with no significant changes from previous echo in 2014 - Strict I+O's and daily weights - Continue LE wraps - Continue home furosemide, spironolactone and metoprolol (4) OLAYINKA (acute kidney injury) Code(s): N17.9 - ACUTE KIDNEY FAILURE, UNSPECIFIED SNOMED Code(s): 82811889 Comment: - Acute on chronic, suspect near baseline - Suspect secondary to poor PO intake (5) Elevated bilirubin Code(s): R17 - UNSPECIFIED JAUNDICE SNOMED Code(s): 524511883 Comment: - Resolved - Suspect secondary to viral illness (6) Elevated troponin Code(s): R79.89 - OTHER SPECIFIED ABNORMAL FINDINGS OF BLOOD CHEMISTRY SNOMED Code(s): 131641194 Comment: - Troponin 0.08, 0.08, 0.09 - Patient continues to deny chest pain. - Per patient's family, no further cardiac workup. - Suspect demand ischemia (7) Afib Code(s): I48.91 - UNSPECIFIED ATRIAL FIBRILLATION SNOMED Code(s): 92203321 Comment: - History paroxysmal - Continue metoprolol (8) BPH (benign prostatic hyperplasia) Code(s): N40.0 - BENIGN PROSTATIC HYPERPLASIA WITHOUT LOWER URINRY TRACT SYMP SNOMED Code(s): 561346728 Comment: - Continue tamsulosin. (9) Dementia Code(s): F03.90 - UNSPECIFIED DEMENTIA WITHOUT BEHAVIORAL DISTURBANCE SNOMED Code(s): 25193046 Comment: - Supportive care (10) Hyperlipemia Code(s): E78.5 - HYPERLIPIDEMIA, UNSPECIFIED SNOMED Code(s): 22639837 (11) DVT prophylaxis Code(s): [id number] - SNOMED Code(s): 341239742 Comment: - SQ Heparin (12) DNR (do not resuscitate) Status and Disposition: Inpatient. Stable for discharge to home today.
[2017-04-22] MEDS ORDERED: Furosemide TAB* 20 MG PO ONE (14:40)
[2017-04-22] MEDS ORDERED: Furosemide TAB* 20 MG ONE (14:48)
--- NOTE | 2017-04-23 11:37 | DS ---
CC: Wyatt Lentz PA-C* DISCHARGE SUMMARY: DATE OF ADMISSION: 04/19/17 DATE OF DISCHARGE: 04/22/17 ATTENDING PHYSICIAN: Jourdan Cardenas MD* (dictated by Arnoldo Rico NP). PRIMARY CARE PROVIDER: Wyatt Lentz PA-C. PRIMARY DIAGNOSES: 1. Hypoxia, suspect secondary to pneumonia and acute on chronic heart failure exacerbation. 2. Pneumonia. 3. Mild congestive heart failure exacerbation. 4. Acute on chronic kidney injury. 5. Elevated bilirubin. 6. Elevated troponin. SECONDARY DIAGNOSES: 1. Dementia. 2. Hypertension. 3. Hyperlipidemia. 4. Benign prostatic hyperplasia. STUDIES WHILE IN THE HOSPITAL: Chest x-ray on 04/19/17. Radiologist impression : Patchy right middle and lower lung consolidation. Recommend followup until resolution to exclude underlying pulmonary parenchymal pathology. DISCHARGE MEDICATIONS: New home medications: 1. Azithromycin 250 mg oral daily for 5 more days. 2. Cefdinir 300 mg oral twice daily for 7 more days. 3. Mucinex 1200 mg oral twice daily. Continued home medications: 1. Simvastatin 20 mg oral daily at bedtime. 2. Albuterol HFA inhaler 2 puffs inhalation every 6 hours as needed for shortness of breath or wheeze. 3. Tamsulosin 0.4 mg oral daily at bedtime. 4. Magnesium oxide 400 mg oral daily. 5. Aspirin 81 mg oral daily. 6. Metoprolol succinate 12.5 mg oral daily. 7. Moisturizing cream apply topical 3 times daily. 8. Acetaminophen 650 mg oral every 4 hours as needed for pain. 9. Spironolactone 25 mg oral daily. 10. Furosemide 20 mg oral daily. HISTORY OF PRESENT ILLNESS/HOSPITAL COURSE: Mr. Figueroa is an 87-year-old male with past medical history significant for dementia, hypertension, congestive heart failure, BPH, chronic kidney disease and hyperlipidemia, who presented to the emergency room from the [facility] where he resides with concerns of weakness and low oxygen saturations. The patient was found to have oxygen saturation on room air at 68%. The oxygen saturation did not improve with oxygen via nasal cannula and he required BiPAP en route to the emergency room. While in the emergency room, he required an OxyMask. According to the patient' s son, the patient had been more tired over several days, not getting out of bed and mobilizing less. He had been refusing meals and refusing his medications and had some bowel and bladder incontinence, which was not his normal. Again, while in the emergency room, the patient was on 15 L OxyMask, but titrated down to 5 L. He was maintaining an oxygen saturation of 94% to 95%. He was not in any acute distress. He received IV Lasix, ceftriaxone and azithromycin for pneumonia. He had a chest x-ray showing concern for a developing right middle lobe consolidation. He had a ventricular bigeminy and trigeminy EKG in the emergency room. Because of all of these findings, the hospitalists were asked to evaluate the patient. The hospitalists were asked to evaluate the patient for admission. While in the hospital, the patient was monitored on telemetry with no significant findings. His hypoxia resolved. He was actually able to be weaned off oxygen. I suspected his hypoxia was secondary to developing pneumonia and congestive heart failure exacerbation. He was continued on ceftriaxone and azithromycin. While in the hospital, he received 3 doses of ceftriaxone and 2 doses of azithromycin. He was continued on his diuretics. He had a flu swab that was negative. He had urine and antigens negative for Legionella and S. pneumoniae. The patient had bilateral lower extremity edema that had started to improve during his stay. It was no longer weeping. He had an acute on chronic injury suspected secondary to poor intake. His renal function had actually continued to be slightly worse than his admission, but stable. He had an elevated troponin that was essentially flat, I suspect elevated due to demand from his pneumonia and heart failure in addition to his underlying renal insufficiency. The patient's total bilirubin was elevated on admission. This resolved during his stay. The patient's family did not want further workup for his elevated troponins. They wanted him to be comfortable and not pursue aggressive measures if possible. Mr. Figueroa is stable for discharge to home today. Vital signs are as follows: Temperature 98.0, heart rate is 74, respiratory rate is 14, O2 sat 94% on 1 L nasal cannula. Blood pressure 134/69. DISCHARGE PLAN: Mr. Figueroa will be discharged back home to the [facility]. Activity as tolerated. He should be on a low sodium heart healthy diet. In regards to his heart failure, he needs to be weighed daily and weight gains of more than 2 to 3 pounds in a day need to be reported to his primary care provider, so his diuretics can be adjusted as necessary. For his pneumonia, he has been continued on cefdinir for 14 more days and azithromycin for 5 in addition to Mucinex twice daily. The patient has an appointment with his primary care provider HOLGER Galvin, on 04/29/17 at 10 a.m. For followup, the patient should continue to have his renal function monitored. The patient has been asked to return to the emergency room for any chest pain, shortness of breath. This is a summarized report of a complex medical history and hospital stay. For further details, please see the entire medical record. TIME SPENT: Time for this discharge was approximately 60 minutes, greater than half of that was spent with the patient discussing discharge plans and instructions. CONDITION ON DISCHARGE: Stable. ARNOLDO GARCIA NP [id number]/[facility] #: [id number] RAGHAVENDRA
== END 2017-04-22 15:33 | disposition home or self-care (01) | DRG 291 ==
LOC: ED 13:58 → MEDTELE 19:03 → OBSVTOIN 04-20 14:02
PROVIDERS: ADMIT Internal Medicine; ATTEND Internal Medicine
PROC: 5A09357 Assistance with Respiratory Ventilation, Less than 24 Consecutive Hours, Continuous Positive Airway Pressure (ICD-10-PCS; principal; 2017-04-20)
DX: I13.0 Hypertensive heart and chronic kidney disease with heart failure and stage 1 through stage 4 chronic kidney disease, or unspecified chronic kidney disease (principal); J18.9 Pneumonia, unspecified organism; J96.01 Acute respiratory failure with hypoxia; N17.9 Acute kidney failure, unspecified; F03.90 Unspecified dementia, unspecified severity, without behavioral disturbance, psychotic disturbance, mood disturbance, and anxiety; I48.91 Unspecified atrial fibrillation; I50.23 Acute on chronic systolic (congestive) heart failure; Z66 Do not resuscitate; J45.909 Unspecified asthma, uncomplicated; K21.9 Gastro-esophageal reflux disease without esophagitis; N40.0 Benign prostatic hyperplasia without lower urinary tract symptoms; M19.90 Unspecified osteoarthritis, unspecified site; M10.9 Gout, unspecified; E80.7 Disorder of bilirubin metabolism, unspecified; R74.8 Abnormal levels of other serum enzymes; E78.5 Hyperlipidemia, unspecified; N18.9 Chronic kidney disease, unspecified; Z87.891 Personal history of nicotine dependence; Z79.82 Long term (current) use of aspirin; Z81.8 Family history of other mental and behavioral disorders
CPT/HCPCS: 36415; 71010; 80048; 80053; 81003; 81015; 82550; 82553; 83605; 83690; 83735; 83880; 84443; 84484; 85025; 85610; 85730; 86140; 87502; 87641; 93005; 94640; 94760; A9270-GY; G0378; G8978-GP-CJ; G8979-GP-CI; J0456; J0696; J1644; J1940; J3490

== ENCOUNTER 2017-05-05 21:49 | Inpatient (IN) | payer MEDICARE, BC ==
[2017-05-05] MEDS ORDERED: Acetaminophen TAB* 325 MG PO ONE (22:26)
[2017-05-05] MEDS ORDERED: NS 0.9% 1000 ML* 1,000 ML IV ONE (22:28)
[2017-05-05] MEDS ORDERED: Piperacillin/Tazobac ADVAN(*) 3.375 GM in NS 0.9% 100 ML* 100 ML IVPB ONE (22:29)
[2017-05-05] MEDS ORDERED: Albuterol/Ipratropium NEB.SOL* Albuterol 2.5 MG/Ipratropium 0.5 MG 3 ML INH ONE (22:30)
[2017-05-05] MEDS ORDERED: Albuterol 2.5 MG/3 ML NEB.SOL* (0.083%) INH ONE (22:31)
[2017-05-05 23:30] LABS: ABS Basophils 0.1 10^3/ul (0-0.2); ABS Eosinophils 0 10^3/ul (0-0.6); ABS Lymphocytes 0.1 10^3/ul (1.0-4.8); ABS Monocytes 0.3 10^3/ul (0-0.8); ABS Neutrophils 11.3 10^3/ul (1.5-7.7); ABS Nucleated RBC 0 10^3/ul; Eosinophil % 0.2 % (0-6); Hematocrit 35 % (42-52); Hemoglobin 11.4 g/dl (14.0-18.0); Lymphocyte % 0.9 % (25-47); Mean Corpuscular HGB Conc 33 g/dl (31-36); Mean Corpuscular Hemoglobin 27 pg (27-31); Mean Corpuscular Volume 84 fL (80-94); Mean Platelet Volume 8 um3 (7.4-10.4); Nucleated Red Blood Cells % 0; Platelet Count 207 10^3/ul (150-450); Red Blood Count 4.22 10^6/ul (4.0-5.4); Red Cell Distribution Width 18 % (10.5-15); White Blood Count 11.9 10^3/ul (3.5-10.8)
[2017-05-05 23:39] LABS: INR 1.01 (0.77-1.02)
[2017-05-05 23:47] LABS: EGFR Non-African American 38.2 (>60)
--- NOTE | 2017-05-06 00:43 | ED ---
Stepan Noguera Gabriel, scribed for Leonardo Gordon MD on 05/05/17 at 2355 . Adult Trauma - HPI Summary HPI Summary: This patient is a 87 year old M BIBA to [facility] from [facility] after a recent fall, he was recently hospitalized with PNA. He is currently coughing intermittently. Patient responds nonsensically when questioned LEVEL 5 CAVEAT : HPI limited due to the patient being demented. - History of Current Complaint Chief Complaint: EDGeneral Stated Complaint: FALL/SOB Time Seen by Provider: 05/05/17 22:09 Hx Obtained From: EMS Mechanism of Injury: Fall Pain Intensity: 0 Pain Scale Used: 0-10 Numeric Location: Head - Additional Pertinent History Primary Care Physician: CHIDI - Allergy/Home Medications Allergies/Adverse Reactions: Allergies Allergy/AdvReac Type Severity Reaction Status Date / Time No Known Allergies Allergy Verified 06/12/16 09:48 PMH/Surg Hx/FS Hx/Imm Hx Endocrine/Hematology History: Reports: Hx Anemia Denies: Hx Diabetes Cardiovascular History: Reports: Hx Congestive Heart Failure, Hx Hypercholesterolemia, Hx Hypertension, Hx Valvular Heart Disease - mitral valve dx, Other Cardiovascular Problems/Disorders - aortic stenosis Respiratory History: Reports: Hx Pleural Effusion GI History: Reports: Hx Gastroesophageal Reflux Disease History: Reports: Hx Benign Prostatic Hyperplasia Musculoskeletal History: Reports: Hx Arthritis, Hx Gout Sensory History: Reports: Hx Contacts or Glasses Denies: Hx Hearing Aid Opthamlomology History: Reports: Hx Contacts or Glasses Neurological History: Reports: Hx Dementia - Surgical History Surgery Procedure, Year, and Place: right knee replaced - Immunization History Date of Tetanus Vaccine: Unk Date of Influenza Vaccine: Unk Infectious Disease History: Unable to Obtain/Confirm Infectious Disease History: Denies: Traveled Outside the [place] in Last 30 Days - Family History Known Family History: Positive: Unknown - LVL 5 CAVEAT: Pt has dementia - Social History Alcohol Use: Rare Alcohol Amount: 2 beers/day Hx Substance Use: No Substance Use Type: Reports: None Hx Tobacco Use: Yes Smoking Status (MU): Former Smoker Type: Cigarettes Length of Time of Smoking/Using Tobacco: 30 years. Have You Smoked in the Last Year: No Review of Systems - ROS Summary Review of Systems Summary: LEVEL 5 CAVEAT: ROS limited due to the patient being demented Positive: Fever Positive: Cough Positive: Bruising All Other Systems Reviewed And Are Negative: No Physical Exam - Summary Physical Exam Summary: VITAL SIGNS: Reviewed. GENERAL: Patient is a well-developed and nourished male who is lying comfortable in the stretcher. Patient is not in any acute respiratory distress. HEAD AND FACE: No signs of trauma. No ecchymosis, hematomas or skull depressions. No sinus tenderness. EYES: PERRLA, EOMI x 2, No injected conjunctiva, no nystagmus. EARS: Hearing grossly intact. Ear canals and tympanic membranes are within normal limits. MOUTH: Oropharynx within normal limits. NECK: Supple, trachea is midline, no adenopathy, no JVD, no carotid bruit, no c- spine tenderness, neck with full ROM. CHEST: Symmetric, no tenderness at palpation LUNGS: patient has rhonchi in both bases CVS: Regular rate and rhythm, S1 and S2 present, no murmurs or gallops appreciated. ABDOMEN: Soft, non-tender. No signs of distention. No rebound no guarding, and no masses palpated. Bowel sounds are normal. EXTREMITIES: FROM in all major joints, bilateral pedal edema , no cyanosis or clubbing. NEURO: Alert and oriented x 3. No acute neurological deficits. Speech is normal and follows commands. SKIN: Dry and warm Triage Information Reviewed: Yes Vital Signs On Initial Exam: Initial Vitals Temp Pulse Resp BP Pulse Ox 101.7 F 94 28 157/57 90 05/05/17 21:50 05/05/17 21:50 05/05/17 21:50 05/05/17 21:50 05/05/17 21:50 Vital Signs Reviewed: Yes Completion Of Physical Exam Limited Due To: Dementia, Level 5 - Gracie Coma Scale Coma Scale Total: 14 Diagnostics - Vital Signs Vital Signs Temp Pulse Resp BP Pulse Ox 05/05/17 21:50 101.7 F 94 28 157/57 90 - Laboratory Result Diagrams: 05/05/17 23:11 05/05/17 23:11 Lab Statement: Any lab studies that have been ordered have been reviewed, and results considered in the medical decision making process. - Radiology CXR Radiology Interpretation Completed By: ED Physician - Right lower lobe infiltrate Adult Trauma Course/Dx - Course Assessment/Plan: This patient is a 87 year old M BIBA to [facility] from [facility] after a recent fall, he was recently hospitalized with PNA. He is currently coughing intermittently. Patient responds nonsensically when questioned. LEVEL 5 CAVEAT : HPI limited due to the patient being demented. CXR reveals right lower lobe infiltrate. Test results with no significant abnormalities. In the ED course the patient was given albuterol and IV fluids. We discussed patient care with Dr. Samuels and he has agreed to admit the patient. Patient will be admitted. The patient is agreeable with this plan. - Diagnoses Provider Diagnoses: PNA (pneumonia) - Physician Notifications Discussed Care Of Patient With: Gage Malik Time Discussed With Above Provider: 23:55 Instructed by Provider To: Admit As Inpatient Discharge - Discharge Plan Condition: Fair Disposition: ADMITTED TO [facility] Referrals: Session Wyatt KING [Primary Care Provider] - The documentation as recorded by the Stepan adler Gabriel accurately reflects the service I personally performed and the decisions made by , Leonardo Gordon MD.
[2017-05-06 02:59] LABS: Urine Appearance Clear; Urine Blood Negative (Negative); Urine Color Yellow; Urine Ketones Negative (Negative); Urine Protein 1+(30 mg/dL) (Negative); Urine Specific Gravity 1.012 (1.010-1.030); Urine Urobilinogen Negative (Negative)
[2017-05-06] MEDS ORDERED: Acetaminophen TAB* 325 MG PO PRN ×2 (04:27→17:15)
[2017-05-06] MEDS ORDERED: Albuterol 2.5 MG/3 ML NEB.SOL* (0.083%) INH PRN (04:27)
[2017-05-06] MEDS ORDERED: Ondansetron INJ* 2 MG/ML VIAL IV PRN (04:27)
[2017-05-06] MEDS ORDERED: CMCS: Melatonin (NF) 3 MG TAB PO PRN (04:27)
--- NOTE | 2017-05-06 04:29 | HP ---
H&P (Free Text) History and Physical: PCP: HOLGER Barba Date/Time: 05/06/2017 0050 CC: "I had to go to the bathroom." HPI: Mr Figueroa is an 87YO male resident of [facility] HX moderate dementia & CHF who was admitted to [facility] 04/20-04/22/2017 for pneumonia with hypoxia who returns this evening with report of hypoxia & generalized weakness. Mr Figueroa is unable to contribute to this H&P beyond current status information. Currently he reports feeling 'fine'. He denies SOB, chest pain, palpitations, N/ V, F/C, cough, congestion, or other issues. WBCs are 11.9k 95.2% neutrophils, Na 127, K 5.2, UA negative, influenza negative. CXR shows persistent, but improved R basilar pneumonia. PMedHx dementia, moderate CHF HTN HLD BPH Ambulatory Orders Nursing to reconcile. Albuterol HFA INHALER* [Ventolin HFA Inhaler*] 2 puff INH Q6H PRN 09/19/14 Simvastatin TAB(NF) [Zocor 20 MG (NF)] 20 mg PO BEDTIME 09/19/14 Magnesium Oxide TAB* [MagOx 400 TAB*] 400 mg PO DAILY 06/12/16 Tamsulosin CAP* [Flomax CAP*] 0.4 mg PO BEDTIME 06/12/16 Aspirin EC Low Dose* [Ecotrin EC Low Dose 81 MG*] 81 mg PO DAILY 06/19/16 Metoprolol Succinate XL TAB* [Toprol XL TAB*] 12.5 mg PO DAILY 06/19/16 Acetaminophen TAB* [Tylenol TAB*] 650 mg PO Q4H PRN #0 tab 06/23/16 Moisturizing CREAM* [Hydrocerin*] 1 applic TOPICAL TID jar 06/23/16 Furosemide TAB* [Lasix TAB*] 20 mg PO DAILY 04/19/17 Spironolactone TAB* [Aldactone TAB 25 MG*] 25 mg PO DAILY 04/19/17 Allergies No Known Allergies Allergy (Verified 06/12/16 09:48) SocHx: former smoker, no alcohol, or recreational drugs; , resides at 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; DNR/I code status FamHx: unobtainable ROS: as above, otherwise reviewed and all were negative vitals: Vital Signs Temp 37.1 C 05/06/17 03:05 Pulse 69 05/06/17 03:05 Resp 16 05/06/17 03:05 BP 98/36 05/06/17 03:05 Pulse Ox 89 05/06/17 03:05 Intake & Output 05/05/17 05/05/17 05/06/17 11:59 23:59 11:59 Intake Total 600 Balance 600 Weight 88.451 kg 73.936 kg Intake: IV Fluids 600 Constitutional: NAD, normally developed, well-nourished elderly white male HEENM: atraumatic; sclera/conjunctiva: non-icteric/clear; hearing: clinically mildly decreased; oropharynx: clear, mucosa tacky Neck: soft tissue: non-tender; thyroid: normal Pulmonary: scattered mild crackles bilaterally, good aeration, no accessory muscle use CV: RR/RR, normal S1S2, no carotid bruit, no jugular venous distention, 2+ B DP/ PT, no edema Abdominal: soft, non-distended, non-tender, no rebound/guarding/rigidity, normoactive bowel sounds, no hepatosplenomegaly or masses, no costovertebral angle tenderness Musculoskeletal: general: grossly intact, no tenderness with palpation Integumental: normal appearance and texture of exposed skin Psychiatric orientation: AA&O to person only affect: calm mood: pleasant eye contact: good content: unreliable memory: markedly impaired responses: timely insight: poor Testing: Lab Results 05/05/17 05/05/17 05/05/17 Range/Units 23:11 23:11 23:11 WBC 11.9 H (3.5-10.8) 10^3/ul RBC 4.22 (4.0-5.4) 10^6/ul Hgb 11.4 L (14.0-18.0) g/dl Hct 35 L (42-52) % MCV 84 (80-94) fL MCH 27 (27-31) pg MCHC 33 (31-36) g/dl RDW 18 H (10.5-15) % Plt Count 207 (150-450) 10^3/ul MPV 8 (7.4-10.4) um3 Neut % (Auto) 95.2 H (38-83) % Lymph % (Auto) 0.9 L (25-47) % Summit % (Auto) 2.7 (1-9) % Eos % (Auto) 0.2 (0-6) % Baso % (Auto) 1.0 (0-2) % Absolute Neuts (auto) 11.3 H (1.5-7.7) 10^3/ul Absolute Lymphs (auto) 0.1 L (1.0-4.8) 10^3/ul Absolute Monos (auto) 0.3 (0-0.8) 10^3/ul Absolute Eos (auto) 0 (0-0.6) 10^3/ul Absolute Basos (auto) 0.1 (0-0.2) 10^3/ul Absolute Nucleated RBC 0 10^3/ul Nucleated RBC % 0 INR (Anticoag Therapy) 1.01 (0.77-1.02) APTT 24.3 L (26.0-36.3) seconds Sodium 127 L (133-145) mmol/L Potassium 5.2 H (3.5-5.0) mmol/L Chloride 91 L (101-111) mmol/L Carbon Dioxide 29 (22-32) mmol/L Anion Gap 7 (2-11) mmol/L BUN 37 H (6-24) mg/dL Creatinine 1.70 H (0.67-1.17) mg/dL Est GFR ( Amer) 49.2 (>60) Est GFR (Non-Af Amer) 38.2 (>60) BUN/Creatinine Ratio 21.8 H (8-20) Glucose 105 H (70-100) mg/dL Lactic Acid (0.5-2.0) mmol/L Calcium 8.3 L (8.6-10.3) mg/dL Total Bilirubin 1.50 H (0.2-1.0) mg/dL AST 19 (13-39) U/L ALT 16 (7-52) U/L Alkaline Phosphatase 134 H (34-104) U/L Troponin I 0.03 (<0.04) ng/mL C-Reactive Protein 12.83 H (< 5.00) mg/L Total Protein 6.5 (6.4-8.9) g/dL Albumin 3.6 (3.2-5.2) g/dL Globulin 2.9 (2-4) g/dL Albumin/Globulin Ratio 1.2 (1-3) Urine Color Urine Appearance Urine pH (5-9) Ur Specific [place] (1.010-1.030) Urine Protein (Negative) Urine Ketones (Negative) Urine Blood (Negative) Urine Nitrate (Negative) Urine Bilirubin (Negative) Urine Urobilinogen (Negative) Ur Leukocyte Esterase (Negative) Urine WBC (Auto) (Absent) Urine RBC (Auto) (Absent) Urine Bacteria (Absent) Urine Sperm (Absent) Urine Glucose (Negative) Influenza A (Rapid) (Negative) Influenza B (Rapid) (Negative) 05/05/17 05/06/17 05/06/17 Range/Units 23:11 00:50 02:40 WBC (3.5-10.8) 10^3/ul RBC (4.0-5.4) 10^6/ul Hgb (14.0-18.0) g/dl Hct (42-52) % MCV (80-94) fL MCH (27-31) pg MCHC (31-36) g/dl RDW (10.5-15) % Plt Count (150-450) 10^3/ul MPV (7.4-10.4) um3 Neut % (Auto) (38-83) % Lymph % (Auto) (25-47) % Summit % (Auto) (1-9) % Eos % (Auto) (0-6) % Baso % (Auto) (0-2) % Absolute Neuts (auto) (1.5-7.7) 10^3/ul Absolute Lymphs (auto) (1.0-4.8) 10^3/ul Absolute Monos (auto) (0-0.8) 10^3/ul Absolute Eos (auto) (0-0.6) 10^3/ul Absolute Basos (auto) (0-0.2) 10^3/ul Absolute Nucleated RBC 10^3/ul Nucleated RBC % INR (Anticoag Therapy) (0.77-1.02) APTT (26.0-36.3) seconds Sodium (133-145) mmol/L Potassium (3.5-5.0) mmol/L Chloride (101-111) mmol/L Carbon Dioxide (22-32) mmol/L Anion Gap (2-11) mmol/L BUN (6-24) mg/dL Creatinine (0.67-1.17) mg/dL Est GFR ( Amer) (>60) Est GFR (Non-Af Amer) (>60) BUN/Creatinine Ratio (8-20) Glucose (70-100) mg/dL Lactic Acid 0.9 (0.5-2.0) mmol/L Calcium (8.6-10.3) mg/dL Total Bilirubin (0.2-1.0) mg/dL AST (13-39) U/L ALT (7-52) U/L Alkaline Phosphatase (34-104) U/L Troponin I (<0.04) ng/mL C-Reactive Protein (< 5.00) mg/L Total Protein (6.4-8.9) g/dL Albumin (3.2-5.2) g/dL Globulin (2-4) g/dL Albumin/Globulin Ratio (1-3) Urine Color Yellow Urine Appearance Clear Urine pH 5.0 (5-9) Ur Specific [place] 1.012 (1.010-1.030) Urine Protein 1+(30 mg/dl) H (Negative) Urine Ketones Negative (Negative) Urine Blood Negative (Negative) Urine Nitrate Negative (Negative) Urine Bilirubin Negative (Negative) Urine Urobilinogen Negative (Negative) Ur Leukocyte Esterase Negative (Negative) Urine WBC (Auto) Trace(0-5/hpf) (Absent) Urine RBC (Auto) Trace(0-2/hpf) (Absent) Urine Bacteria Absent (Absent) Urine Sperm Present H (Absent) Urine Glucose Negative (Negative) Influenza A (Rapid) Negative (Negative) Influenza B (Rapid) Negative (Negative) CXR, personally reviewed: improved, but persistent R basilar infiltrate Impression: 87M HX moderate dementia presenting with R basilar pneumonia DIAGNOSIS & PLAN Primary R basilar pneumonia : IV piperacillin/tazobactam : IVFs : sputum & blood CXs : supplemental oxygen : supportive care Secondary dementia, moderate : review meds once reconciled CHF : review meds once reconciled : daily weights : strict I&Os HTN : review meds once reconciled HLD : review meds once reconciled BPH : review meds once reconciled Admission Rational: inpatient for persistent R basilar pneumonia DVTp: SCDs & heparin SQ Code Status: DNR/I HCP: sonHola
[2017-05-06] MEDS ORDERED: NS 0.9% 1000 ML* 1,000 ML IV SCH (04:30)
[2017-05-06] MEDS ORDERED: NS 0.9% 100 ML* 100 ML ONE (06:04)
[2017-05-06] MEDS: Omeprazole CAP* 20 MG PO SCH (06:07)
[2017-05-06] MEDS: Piperacillin/Tazobac ADVAN(*) 3.375 GM in NS 0.9% 100 ML* 100 ML IVPB SCH ×3 (06:29→22:13)
[2017-05-06 06:49] LABS: EGFR Non-African American 36.7 (>60)
[2017-05-06 07:01] LABS: INR 1.04 (0.77-1.02)
[2017-05-06] MEDS: Docusate CAP* 100 MG PO SCH ×2 (07:46→22:13)
--- NOTE | 2017-05-06 07:48 | RAD ---
INDICATION: Shortness of breath. COMPARISON: Comparison is made with a prior chest x-ray study from April 19, 2017. TECHNIQUE: A portable view of the chest was obtained. FINDINGS: The heart is moderately enlarged and unchanged from the prior exam. There is a small right basilar infiltrate and small pleural effusion which are slightly improved from the prior study. The left lung is clear. IMPRESSION: SMALL RIGHT BASILAR INFILTRATE AND PLEURAL EFFUSION SLIGHTLY IMPROVED.
[2017-05-06 13:21] LABS: ABS Basophils 0.1 10^3/ul (0-0.2); ABS Eosinophils 0 10^3/ul (0-0.6); ABS Lymphocytes 0.1 10^3/ul (1.0-4.8); ABS Monocytes 0.5 10^3/ul (0-0.8); ABS Nucleated RBC 0.01 10^3/ul; Eosinophil % 0.3 % (0-6); Hematocrit 34 % (42-52); Lymphocyte % 1.3 % (25-47); Mean Corpuscular HGB Conc 32 g/dl (31-36); Mean Corpuscular Hemoglobin 27 pg (27-31); Mean Corpuscular Volume 85 fL (80-94); Mean Platelet Volume 8 um3 (7.4-10.4); Nucleated Red Blood Cells % 0.1; Platelet Count 167 10^3/ul (150-450); Red Blood Count 4.03 10^6/ul (4.0-5.4); Red Cell Distribution Width 19 % (10.5-15); White Blood Count 7.7 10^3/ul (3.5-10.8)
[2017-05-06 13:38] LABS: EGFR Non-African American 34.7 (>60)
--- NOTE | 2017-05-06 17:11 | PN ---
Subjective Date of Service: 05/06/17 Interval History: Patient A/Ox1 only, but is very jovial today. Patient has persistent productive cough and SOB on O2 consistently. Unable to perform ROS due to patient confusion. Talked to son about history and patient had recently been admitted for PNA and had improved to baseline, but then relapsed with same symptoms. Son would like to know that if patient is discharged he will not be able to transport him on Thursday Afternoon. Family History: Unchanged from Admission Social History: Unchanged from Admission Past Medical History: Unchanged from Admission Objective Active Medications: Acetaminophen (Tylenol Tab*) 650 mg PO Q6H PRN PRN Reason: FEVER/PAIN Last Admin: 05/06/17 06:07 Dose: 650 mg Albuterol (Ventolin 2.5 Mg/3 Ml Neb.Susu*) 2.5 mg INH Q2H PRN PRN Reason: SOB/WHEEZING Docusate Sodium (Colace Cap*) 200 mg PO BID [facility] Last Admin: 05/06/17 07:46 Dose: 200 mg Heparin Sodium (Porcine) (Heparin Vial(*)) 5,000 units SUBCUT Q8HR [facility] Sodium Chloride (Ns 0.9% 1000 Ml*) 1,000 mls @ 75 mls/hr IV PER RATE [facility] Stop: 05/07/17 17:49 Last Admin: 05/06/17 04:47 Dose: 75 mls/hr Piperacillin Sod/Tazobactam (Sod 3.375 gm/ Sodium Chloride) 100 mls @ 25 mls/ hr IVPB Q8H [facility] Last Admin: 05/06/17 13:26 Dose: 25 mls/hr Melatonin (Melatonin (Nf)) 3 mg PO BEDTIME PRN; Protocol PRN Reason: Sleep Omeprazole (Prilosec Cap*) 20 mg PO DAILY@0600 [facility] Last Admin: 05/06/17 06:07 Dose: 20 mg Ondansetron HCl (Zofran Inj*) 4 mg IV Q6H PRN PRN Reason: NAUSEA Oxygen Devices in Use Now: Nasal Cannula Appearance: Pateint is an 87yo male who appears stated age and is sitting in the bed in NAD. Eyes: No Scleral Icterus, PERRLA Ears/Nose/Mouth/Throat: NL Teeth, Lips, Gums, Clear Oropharnyx, Mucous Membranes Moist Neck: NL Appearance and Movements; NL JVP, Trachea Midline Respiratory: Symmetrical Chest Expansion and Respiratory Effort, - - Course Rhonchi in Anterior area on left. No other adventitious lung sounds. Cardiovascular: NL Sounds; No Murmurs; No JVD, RRR, - - 2+ pitting edema in B/L LE. Abdominal: NL Sounds; No Tenderness; No Distention, No Hepatosplenomegaly Lymphatic: No Cervical Adenopathy Extremities: No Clubbing, Cyanosis Skin: No Rash or Ulcers, No Nodules or Sclerosis Neurological: NL Sensation, NL Muscle Strength and Tone, - - CN II-XII intact. A /Ox1 Result Diagrams: 05/06/17 13:02 05/06/17 13:02 Assess/Plan/Problems-Billing Assessment: Patient is an 87yo male with a PMH significant for CHF, Dementia, and PNA who presents with recurrence of PNA and has been started on Zosyn for treatment failure. - Patient Problems (1) Pneumonia Current Visit: No Status: Acute Code(s): J18.9 - PNEUMONIA, UNSPECIFIED ORGANISM SNOMED Code(s): 773427774 Comment: Community aquired with treatment failure. Afebrile, mild leukocytosis. Influenza negative Continue Zosyn Blood and Sputum culture pending. (2) Acute respiratory failure with hypoxia Current Visit: No Status: Acute Code(s): J96.01 - ACUTE RESPIRATORY FAILURE WITH HYPOXIA SNOMED Code(s): 11307968 Comment: Acute on chronic, saturating berween 89 and 94% on 2L Suspect secondary to PNA Continue supplemental O2 (3) BPH (benign prostatic hyperplasia) Current Visit: No Status: Chronic Code(s): N40.0 - BENIGN PROSTATIC HYPERPLASIA WITHOUT LOWER URINRY TRACT SYMP SNOMED Code(s): 111294248 Comment: Hold tamsulosin for low BPs, hightower inserted for fluid monitoring. (4) Dementia Current Visit: No Status: Chronic Code(s): F03.90 - UNSPECIFIED DEMENTIA WITHOUT BEHAVIORAL DISTURBANCE SNOMED Code(s): 91764038 Comment: Supportive care (5) HTN (hypertension) Current Visit: No Status: Chronic Code(s): I10 - ESSENTIAL (PRIMARY) HYPERTENSION SNOMED Code(s): 49192185 Comment: Fluctuating BP. Continue metoprolol for tachycardia. Patient not symptomatic when hypotensive. (6) Hyperlipemia Current Visit: No Status: Chronic Code(s): E78.5 - HYPERLIPIDEMIA, UNSPECIFIED SNOMED Code(s): 64840213 Comment: Continue Lipitor. (7) Systolic CHF Current Visit: No Status: Chronic Priority: Medium Code(s): I50.20 - UNSPECIFIED SYSTOLIC (CONGESTIVE) HEART FAILURE SNOMED Code(s): 084181856 Comment: Lungs clear of crackles, significant leg swelling. Appears dehydrated otherwise. 06/2016 EF 50-55% with no significant changes from previous echo in 2014 Strict I+O's and daily weights Hold home furosemide and spironolactone Continue Metoprolol. (8) DNR (do not resuscitate) Current Visit: No Status: Acute (9) DVT prophylaxis Current Visit: No Status: Acute Priority: Medium Code(s): MCX4943 - SNOMED Code(s): 336363354 Comment: SQ Heparin Status and Disposition: Patient is admitted inpatient, estimated 2-3 day LOS.
[2017-05-06] MEDS ORDERED: Albuterol HFA INHALER* 8 gm MDI INH PRN (17:15)
[2017-05-06] MEDS ORDERED: Furosemide IV* 10 MG/ML 2 ML VIAL (20 MG) IV SLOW PU ONE (17:23)
--- NOTE | 2017-05-06 19:11 | PN ---
Hospitalist Progress Note Date of Service: 05/06/17 Called to 4S due to Patient fall. Patient's alarm didn't go off. Patient was found slumped on the wall on his right side. Patient has increased swelling around his right eye, an old bruise on his right quaker and a red, non- blanching ema on his left posterior chest. Patient denies pain and non is able to be elicited by exam. No neurological deficits, will CT head due to inability to assess for AMS. No other imaging warranted at this time. Will repeat labs in AM.
--- NOTE | 2017-05-06 21:12 | RAD ---
Indication: Fall with potential head trauma. Baseline altered mental status change. Comparison: September 19, 2014 Technique: Noncontrast CT vertex of skull through foramen magnum. Report: Mild prominence of the cerebral sulci and cerebellar fissures. Proportional mild enlargement of the ventricles. Patent basal cisterns. Decreased density in the periventricular and subcortical white matter while non-specific is most likely due to chronic microangiopathy. Negative for payan matter white matter obscuration, intra or extra-axial hemorrhage, or mass effect. Unremarkable orbital contents. Negative for calvarial or skull base fracture. Fluid level at the RIGHT maxillary sinus. Mucosal thickening at the RIGHT frontal sinus. Soft tissue swelling at the RIGHT malar eminence and superficial to the RIGHT zygomatic arch. No loculated scalp hematoma evident. IMPRESSION: 1. Involutional change and stigmata of chronic small vessel ischemic disease. 2. Soft tissue swelling at the RIGHT malar eminence and superficial to the RIGHT zygomatic arch. No loculated scalp hematoma evident. 3. No CT evidence for traumatic brain injury or acute intracranial process. 4. Correlate for potential RIGHT maxillary sinusitis.
[2017-05-06] MEDS: Atorvastatin* 10 MG TAB PO SCH (22:13)
--- NOTE | 2017-05-07 05:35 | PN ---
Progress Note - Progress Note Date of Service: 05/07/17 Note: CAT response Upon arrival nursing reports finding Mr Figueroa without his oxymask on and an saO2 in the 50s failing to respond to sternal rub. RT is present with oxygen flow increased to 15L oxymask and saO2 at 92%. Mr Figueroa reports "feeling pretty good". He denies SOB, chest pain, or other issues. Advised to continue to monitor closely and titrate oxygen flow to lowest adequate to maintain saO2 > 90%.
[2017-05-07] MEDS: Piperacillin/Tazobac ADVAN(*) 3.375 GM in NS 0.9% 100 ML* 100 ML IVPB SCH ×3 (05:42→21:31)
[2017-05-07] MEDS: Heparin VIAL(*) 5000 UNITS/ML VIAL (FIVE THOUSAND) SUBCUT SCH ×3 (05:48→21:37)
[2017-05-07] MEDS: Omeprazole CAP* 20 MG PO SCH (05:48)
[2017-05-07 06:11] LABS: ABS Basophils 0 10^3/ul (0-0.2); ABS Eosinophils 0 10^3/ul (0-0.6); ABS Lymphocytes 0.2 10^3/ul (1.0-4.8); ABS Monocytes 0.4 10^3/ul (0-0.8); ABS Neutrophils 5.6 10^3/ul (1.5-7.7); ABS Nucleated RBC 0 10^3/ul; Eosinophil % 0.1 % (0-6); Hematocrit 35 % (42-52); Lymphocyte % 2.7 % (25-47); Mean Corpuscular HGB Conc 32 g/dl (31-36); Mean Corpuscular Hemoglobin 27 pg (27-31); Mean Corpuscular Volume 85 fL (80-94); Mean Platelet Volume 8 um3 (7.4-10.4); Nucleated Red Blood Cells % 0.1; Platelet Count 156 10^3/ul (150-450); Red Blood Count 4.06 10^6/ul (4.0-5.4); Red Cell Distribution Width 19 % (10.5-15); White Blood Count 6.2 10^3/ul (3.5-10.8)
[2017-05-07 06:36] LABS: EGFR Non-African American 30.6 (>60)
--- NOTE | 2017-05-07 08:22 | RAD ---
HISTORY: Pneumonia COMPARISONS: May 05, 2009 VIEWS: 2: Frontal and lateral views of the chest. FINDINGS: CARDIOMEDIASTINAL SILHOUETTE: The cardiac silhouette is mildly enlarged. The cardiomediastinal silhouette is otherwise normal. LYNSEY: The lynsey are normal. PLEURA: There is blunting of the right costophrenic angle. LUNG PARENCHYMA: There is persistent confluent alveolar opacification of the right lung base. ABDOMEN: The upper abdomen is clear. There is no subphrenic gas. BONES AND SOFT TISSUES: No bone or soft tissue abnormalities are noted. OTHER: None. IMPRESSION: PERSISTENT SMALLER RIGHT PLEURAL EFFUSION WITH RIGHT BASILAR CONSOLIDATION.
[2017-05-07] MEDS: Magnesium Oxide TAB* 400 MG PO SCH (08:34)
[2017-05-07] MEDS: Metoprolol Succinate XL TAB* 25 MG PO SCH (08:34)
[2017-05-07] MEDS: Docusate CAP* 100 MG PO SCH ×3 (08:35→21:29)
[2017-05-07] MEDS: Aspirin EC Low Dose* 81 MG TAB.EC PO SCH (08:35)
[2017-05-07] MEDS ORDERED: Furosemide IV* 10 MG/ML 2 ML VIAL (20 MG) IV SLOW PU ONE ×2 (09:18→15:54)
--- NOTE | 2017-05-07 16:24 | PN ---
Subjective Date of Service: 05/07/17 Interval History: Patient has been having intermittently increased O2 demand throughout day. Patient jovial and A/Ox1 when awake. Patient drowsy through day. Patient currently on 10L oxymask and sleeping. Unable to complete ROS. Discussed the possibility of BiPAP with family and they are amenable to any non-invasive interventions. Family History: Unchanged from Admission Social History: Unchanged from Admission Past Medical History: Unchanged from Admission Objective Active Medications: Acetaminophen (Tylenol Tab*) 650 mg PO Q4H PRN PRN Reason: PAIN Albuterol (Ventolin 2.5 Mg/3 Ml Neb.Susu*) 2.5 mg INH Q2H PRN PRN Reason: SOB/WHEEZING Albuterol (Ventolin Hfa Inhaler*) 2 puff INH Q6H PRN PRN Reason: SOB/WHEEZING Aspirin (Aspirin Ec Low Dose*) 81 mg PO DAILY [facility] Last Admin: 05/07/17 08:35 Dose: 81 mg Atorvastatin Calcium (Lipitor*) 10 mg PO BEDTIME [facility] Last Admin: 05/06/17 22:13 Dose: 10 mg Docusate Sodium (Colace Cap*) 200 mg PO BID [facility] Last Admin: 05/07/17 08:36 Dose: Not Given Heparin Sodium (Porcine) (Heparin Vial(*)) 5,000 units SUBCUT Q8HR [facility] Last Admin: 05/07/17 13:44 Dose: 5,000 units Piperacillin Sod/Tazobactam (Sod 3.375 gm/ Sodium Chloride) 100 mls @ 25 mls/ hr IVPB Q8H [facility] Last Admin: 05/07/17 13:44 Dose: 25 mls/hr Magnesium Oxide (Magox 400 Tab*) 400 mg PO DAILY [facility] Last Admin: 05/07/17 08:34 Dose: 400 mg Melatonin (Melatonin (Nf)) 3 mg PO BEDTIME PRN; Protocol PRN Reason: Sleep Metoprolol Succinate (Toprol Xl Tab*) 12.5 mg PO DAILY [facility] Last Admin: 05/07/17 08:34 Dose: 12.5 mg Omeprazole (Prilosec Cap*) 20 mg PO DAILY@0600 [facility] Last Admin: 05/07/17 05:48 Dose: 20 mg Ondansetron HCl (Zofran Inj*) 4 mg IV Q6H PRN PRN Reason: NAUSEA Vital Signs - 8 hr 05/07/17 05/07/17 05/07/17 08:27 08:43 10:52 Temperature 97.3 F Pulse Rate 84 Respiratory 20 Rate Blood Pressure 117/45 (mmHg) O2 Sat by Pulse 100 97 94 Oximetry 05/07/17 05/07/17 11:40 15:42 Temperature 98.2 F 99.5 F Pulse Rate 44 120 Respiratory 20 20 Rate Blood Pressure 106/29 118/50 (mmHg) O2 Sat by Pulse 96 Oximetry Oxygen Devices in Use Now: OxyMask Appearance: Patient is an 87yo male who appears stated age and is sitting in the bed in NAD with no increase WOB. Eyes: No Scleral Icterus, PERRLA Ears/Nose/Mouth/Throat: NL Teeth, Lips, Gums, Clear Oropharnyx, Mucous Membranes Moist Neck: NL Appearance and Movements; NL JVP, Trachea Midline Respiratory: Symmetrical Chest Expansion and Respiratory Effort, - - Rhonchi throughout. Slight crackles in lowe lobes. Cardiovascular: NL Sounds; No Murmurs; No JVD, RRR, - - 2+ pitting edema in B/L LE. Abdominal: NL Sounds; No Tenderness; No Distention, No Hepatosplenomegaly Lymphatic: No Cervical Adenopathy Extremities: No Clubbing, Cyanosis Skin: No Nodules or Sclerosis, - - Bruise on right denominational and red ema on back. Neurological: NL Sensation, NL Muscle Strength and Tone, - - CN II-XII intact. Result Diagrams: 05/07/17 05:57 05/07/17 05:57 Assess/Plan/Problems-Billing Assessment: Patient is an 87yo male with a PMH significant for CHF, Dementia, and PNA who presents with recurrence of PNA and has been started on Zosyn for treatment failure. - Patient Problems (1) Pneumonia Current Visit: No Status: Acute Code(s): J18.9 - PNEUMONIA, UNSPECIFIED ORGANISM SNOMED Code(s): 070871313 Comment: Community aquired with treatment failure. Afebrile, leukocytosis resolved. Influenza negative Continue Zosyn Blood and Sputum culture pending. (2) Acute respiratory failure with hypoxia Current Visit: No Status: Acute Code(s): J96.01 - ACUTE RESPIRATORY FAILURE WITH HYPOXIA SNOMED Code(s): 94295971 Comment: Acute on chronic, O2 requirements up to 10L oxymask. Suspect secondary to PNA and CHF exacerbation. Continue supplemental O2, Zosyn and Lasix (3) BPH (benign prostatic hyperplasia) Current Visit: No Status: Chronic Code(s): N40.0 - BENIGN PROSTATIC HYPERPLASIA WITHOUT LOWER URINRY TRACT SYMP SNOMED Code(s): 479961025 Comment: Hold tamsulosin for low BPs, hightower inserted for fluid monitoring. (4) Dementia Current Visit: No Status: Chronic Code(s): F03.90 - UNSPECIFIED DEMENTIA WITHOUT BEHAVIORAL DISTURBANCE SNOMED Code(s): 04230379 Comment: Supportive care (5) HTN (hypertension) Current Visit: No Status: Chronic Code(s): I10 - ESSENTIAL (PRIMARY) HYPERTENSION SNOMED Code(s): 26067740 Comment: Fluctuating BP. Continue metoprolol for tachycardia. Patient not symptomatic when hypotensive. (6) Hyperlipemia Current Visit: No Status: Chronic Code(s): E78.5 - HYPERLIPIDEMIA, UNSPECIFIED SNOMED Code(s): 44201207 Comment: Continue Lipitor. (7) Systolic CHF Current Visit: No Status: Chronic Priority: Medium Code(s): I50.20 - UNSPECIFIED SYSTOLIC (CONGESTIVE) HEART FAILURE SNOMED Code(s): 241667775 Comment: Slight crackles in lungs, significant leg swelling. 06/2016 EF 50-55% with no significant changes from previous echo in 2014 Strict I+O's and daily weights IV lasix PRN Continue Metoprolol. (8) DNR (do not resuscitate) Current Visit: No Status: Acute (9) DVT prophylaxis Current Visit: No Status: Acute Priority: Medium Code(s): JDH5058 - SNOMED Code(s): 363615038 Comment: SQ Heparin Status and Disposition: Patient is admitted inpatient, estimated 2-3 day LOS.
[2017-05-07] MEDS: Atorvastatin* 10 MG TAB PO SCH (21:29)
[2017-05-08] MEDS: Piperacillin/Tazobac ADVAN(*) 3.375 GM in NS 0.9% 100 ML* 100 ML IVPB SCH ×3 (05:28→21:30)
[2017-05-08] MEDS: Heparin VIAL(*) 5000 UNITS/ML VIAL (FIVE THOUSAND) SUBCUT SCH ×3 (05:37→20:24)
[2017-05-08] MEDS: Omeprazole CAP* 20 MG PO SCH (05:38)
[2017-05-08] MEDS ORDERED: Furosemide IV* 10 MG/ML VIAL (40 MG) IV SLOW PU ONE (09:05)
[2017-05-08 09:10] LABS: ABS Basophils 0.1 10^3/ul (0-0.2); ABS Eosinophils 0 10^3/ul (0-0.6); ABS Lymphocytes 0.2 10^3/ul (1.0-4.8); ABS Monocytes 0.4 10^3/ul (0-0.8); ABS Neutrophils 5.6 10^3/ul (1.5-7.7); ABS Nucleated RBC 0 10^3/ul; Eosinophil % 0.1 % (0-6); Hematocrit 36 % (42-52); Hemoglobin 11.6 g/dl (14.0-18.0); Lymphocyte % 3.3 % (25-47); Mean Corpuscular HGB Conc 32 g/dl (31-36); Mean Corpuscular Hemoglobin 28 pg (27-31); Mean Corpuscular Volume 86 fL (80-94); Mean Platelet Volume 9 um3 (7.4-10.4); Nucleated Red Blood Cells % 0.1; Platelet Count 155 10^3/ul (150-450); Red Blood Count 4.17 10^6/ul (4.0-5.4); Red Cell Distribution Width 19 % (10.5-15); White Blood Count 6.2 10^3/ul (3.5-10.8)
[2017-05-08] MEDS: Aspirin EC Low Dose* 81 MG TAB.EC PO SCH (09:25)
[2017-05-08] MEDS: Docusate CAP* 100 MG PO SCH ×2 (09:25→20:23)
[2017-05-08] MEDS: Metoprolol Succinate XL TAB* 25 MG PO SCH (09:25)
[2017-05-08] MEDS: Magnesium Oxide TAB* 400 MG PO SCH (09:25)
--- NOTE | 2017-05-08 15:20 | PN ---
Subjective Date of Service: 05/08/17 Interval History: Patient offers no complaints today. Patient A/Ox2. Patient is saturating in the low 90s while talking on 10L high-flow NC. Patient denies SOB, CP, N/V, abdominal pain, F/C, dizziness, or other pain. Unable to ascertain if patient is actually understanding conversation. Family History: Unchanged from Admission Social History: Unchanged from Admission Past Medical History: Unchanged from Admission Objective Active Medications: Acetaminophen (Tylenol Tab*) 650 mg PO Q4H PRN PRN Reason: PAIN Albuterol (Ventolin 2.5 Mg/3 Ml Neb.Susu*) 2.5 mg INH Q2H PRN PRN Reason: SOB/WHEEZING Albuterol (Ventolin Hfa Inhaler*) 2 puff INH Q6H PRN PRN Reason: SOB/WHEEZING Aspirin (Aspirin Ec Low Dose*) 81 mg PO DAILY [facility] Last Admin: 05/08/17 09:25 Dose: 81 mg Atorvastatin Calcium (Lipitor*) 10 mg PO BEDTIME [facility] Last Admin: 05/07/17 21:29 Dose: 10 mg Docusate Sodium (Colace Cap*) 200 mg PO BID [facility] Last Admin: 05/08/17 09:25 Dose: 200 mg Heparin Sodium (Porcine) (Heparin Vial(*)) 5,000 units SUBCUT Q8HR [facility] Last Admin: 05/08/17 13:20 Dose: 5,000 units Piperacillin Sod/Tazobactam (Sod 3.375 gm/ Sodium Chloride) 100 mls @ 25 mls/ hr IVPB Q8H [facility] Last Admin: 05/08/17 13:20 Dose: 25 mls/hr Magnesium Oxide (Magox 400 Tab*) 400 mg PO DAILY [facility] Last Admin: 05/08/17 09:25 Dose: 400 mg Melatonin (Melatonin (Nf)) 3 mg PO BEDTIME PRN; Protocol PRN Reason: Sleep Metoprolol Succinate (Toprol Xl Tab*) 12.5 mg PO DAILY [facility] Last Admin: 05/08/17 09:25 Dose: 12.5 mg Omeprazole (Prilosec Cap*) 20 mg PO DAILY@0600 [facility] Last Admin: 05/08/17 05:38 Dose: 20 mg Ondansetron HCl (Zofran Inj*) 4 mg IV Q6H PRN PRN Reason: NAUSEA Vital Signs - 8 hr 05/08/17 05/08/17 05/08/17 07:50 07:52 08:00 Temperature 98.1 F Pulse Rate Respiratory 20 20 Rate Blood Pressure 152/64 (mmHg) O2 Sat by Pulse 93 94 Oximetry 05/08/17 05/08/17 11:21 11:36 Temperature 98.9 F Pulse Rate 77 Respiratory 18 Rate Blood Pressure 116/48 (mmHg) O2 Sat by Pulse 99 99 Oximetry Oxygen Devices in Use Now: High Flow Nasal Cannula Appearance: Patient is an 87yo male who appears stated age and is sitting in the bed in [facility]. Eyes: No Scleral Icterus, PERRLA Ears/Nose/Mouth/Throat: NL Teeth, Lips, Gums, Clear Oropharnyx, Mucous Membranes Moist Neck: NL Appearance and Movements; NL JVP, Trachea Midline Respiratory: Symmetrical Chest Expansion and Respiratory Effort, - - Crackles in B/L Lower lobes. Worse from previous exam. Rhonchi also in right middle lobe. Cardiovascular: NL Sounds; No Murmurs; No JVD, - - Irregularly irregular rhythm. Abdominal: NL Sounds; No Tenderness; No Distention, - - Liver edge palpated and percussed 2cm below costal margin. Spleen non-palpable Lymphatic: No Cervical Adenopathy Extremities: No Clubbing, Cyanosis, - - 2+ pitting edema in B/L LE. Skin: No Rash or Ulcers, No Nodules or Sclerosis Neurological: NL Sensation, NL Muscle Strength and Tone, - - A/Ox2. CN II-XII intact. Result Diagrams: 05/08/17 07:34 05/08/17 07:34 Assess/Plan/Problems-Billing Assessment: Patient is an 87yo male with a PMH significant for CHF, Dementia, and PNA who presents with recurrence of PNA and has been started on Zosyn for treatment failure. - Patient Problems (1) Pneumonia Current Visit: No Status: Acute Code(s): J18.9 - PNEUMONIA, UNSPECIFIED ORGANISM SNOMED Code(s): 995490012 Comment: Community acquired bacterial pneumonia of unknown bacterium as patient is unable to provide a sputum sample. Treatment failure with ceftriaxone and azithromycin. Afebrile, leukocytosis resolved. Influenza negative Continue Zosyn, improving. Blood culture no growth. (2) Systolic CHF Current Visit: No Status: Chronic Priority: Medium Code(s): I50.20 - UNSPECIFIED SYSTOLIC (CONGESTIVE) HEART FAILURE SNOMED Code(s): 369273439 Comment: Slight crackles in lungs, significant leg swelling. Likely moderate exacerbation. 06/2016 EF 50-55% with no significant changes from previous echo in 2014 Strict I+O's and daily weights IV lasix PRN Continue Metoprolol. (3) Acute respiratory failure with hypoxia Current Visit: No Status: Acute Code(s): J96.01 - ACUTE RESPIRATORY FAILURE WITH HYPOXIA SNOMED Code(s): 94757762 Comment: Acute on chronic, O2 requirements up to 10L high flow NC. Suspect secondary to PNA and CHF exacerbation. Continue supplemental O2, Zosyn and Lasix Wean O2 as tolerated. (4) BPH (benign prostatic hyperplasia) Current Visit: No Status: Chronic Code(s): N40.0 - BENIGN PROSTATIC HYPERPLASIA WITHOUT LOWER URINRY TRACT SYMP SNOMED Code(s): 324040096 Comment: Hold tamsulosin for low BPs, hightower inserted for fluid monitoring. (5) Dementia Current Visit: No Status: Chronic Code(s): F03.90 - UNSPECIFIED DEMENTIA WITHOUT BEHAVIORAL DISTURBANCE SNOMED Code(s): 92356317 Comment: Supportive care (6) HTN (hypertension) Current Visit: No Status: Chronic Code(s): I10 - ESSENTIAL (PRIMARY) HYPERTENSION SNOMED Code(s): 02589571 Comment: Fluctuating BP. Continue metoprolol for tachycardia. Patient not symptomatic when hypotensive. (7) Hyperlipemia Current Visit: No Status: Chronic Code(s): E78.5 - HYPERLIPIDEMIA, UNSPECIFIED SNOMED Code(s): 98907049 Comment: Continue Lipitor. (8) DNR (do not resuscitate) Current Visit: No Status: Acute (9) DVT prophylaxis Current Visit: No Status: Acute Priority: Medium Code(s): NQN1721 - SNOMED Code(s): 444007718 Comment: SQ Heparin Status and Disposition: Patient is admitted inpatient, estimated 2-3 day LOS.
[2017-05-08] MEDS: Atorvastatin* 10 MG TAB PO SCH (20:24)
[2017-05-09] MEDS: Heparin VIAL(*) 5000 UNITS/ML VIAL (FIVE THOUSAND) SUBCUT SCH ×3 (05:28→21:52)
[2017-05-09] MEDS: Omeprazole CAP* 20 MG PO SCH (05:28)
[2017-05-09] MEDS: Piperacillin/Tazobac ADVAN(*) 3.375 GM in NS 0.9% 100 ML* 100 ML IVPB SCH ×3 (05:40→21:52)
--- NOTE | 2017-05-09 09:00 | PN ---
Subjective Date of Service: 05/09/17 Interval History: Patient seen and examined. Asleep, easily aroused. States breathing is slightly better than yesterday. States no chest pain, no n/v, some fatigue, no acute overnight events. No further complaints. Confused at baseline but answers questions appropriately. Family History: Unchanged from Admission Social History: Unchanged from Admission Past Medical History: Unchanged from Admission Objective Active Medications: Acetaminophen (Tylenol Tab*) 650 mg PO Q4H PRN PRN Reason: PAIN Albuterol (Ventolin 2.5 Mg/3 Ml Neb.Susu*) 2.5 mg INH Q2H PRN PRN Reason: SOB/WHEEZING Albuterol (Ventolin Hfa Inhaler*) 2 puff INH Q6H PRN PRN Reason: SOB/WHEEZING Aspirin (Aspirin Ec Low Dose*) 81 mg PO DAILY [facility] Last Admin: 05/08/17 09:25 Dose: 81 mg Atorvastatin Calcium (Lipitor*) 10 mg PO BEDTIME [facility] Last Admin: 05/08/17 20:24 Dose: 10 mg Docusate Sodium (Colace Cap*) 200 mg PO BID [facility] Last Admin: 05/08/17 20:23 Dose: 200 mg Heparin Sodium (Porcine) (Heparin Vial(*)) 5,000 units SUBCUT Q8HR [facility] Last Admin: 05/09/17 05:28 Dose: Not Given Piperacillin Sod/Tazobactam (Sod 3.375 gm/ Sodium Chloride) 100 mls @ 25 mls/ hr IVPB Q8H [facility] Last Admin: 05/09/17 05:40 Dose: 25 mls/hr Magnesium Oxide (Magox 400 Tab*) 400 mg PO DAILY [facility] Last Admin: 05/08/17 09:25 Dose: 400 mg Melatonin (Melatonin (Nf)) 3 mg PO BEDTIME PRN; Protocol PRN Reason: Sleep Metoprolol Succinate (Toprol Xl Tab*) 12.5 mg PO DAILY [facility] Last Admin: 05/08/17 09:25 Dose: 12.5 mg Omeprazole (Prilosec Cap*) 20 mg PO DAILY@0600 [facility] Last Admin: 05/09/17 05:28 Dose: Not Given Ondansetron HCl (Zofran Inj*) 4 mg IV Q6H PRN PRN Reason: NAUSEA Oxygen Devices in Use Now: High Flow Nasal Cannula Appearance: Alert, NAD Eyes: No Scleral Icterus, PERRLA Ears/Nose/Mouth/Throat: - - edentulous with dry oral mucosa Neck: NL Appearance and Movements; NL JVP, Trachea Midline Respiratory: Symmetrical Chest Expansion and Respiratory Effort, - - course breath sounds throughout with bilateral wheezes Cardiovascular: NL Sounds; No Murmurs; No JVD, RRR Abdominal: NL Sounds; No Tenderness; No Distention Extremities: No Edema, No Clubbing, Cyanosis Skin: No Rash or Ulcers Neurological: NL Sensation - alert, oriented to person, NL Muscle Strength and Tone Nutrition: Taking PO's Result Diagrams: 05/08/17 07:34 05/08/17 07:34 Diagnostic Imaging: Patient Name: MELINDA ZUNIGA Medical Record#: [id number] Ordering Physician: Nima WREN Acct.#: [id number] : 1930 Age: 87 Sex: M Location: [address] [place] [address] MEDICAL/TELEMETRY Exam Date: 05/07/17651 ADM Status: ADM IN Order Information: CHEST PA & LAT 2 VWS Accession Number: [id number] CPT: 38973 HISTORY: Pneumonia COMPARISONS: May 05, 2009 VIEWS: 2: Frontal and lateral views of the chest. FINDINGS: CARDIOMEDIASTINAL SILHOUETTE: The cardiac silhouette is mildly enlarged. The cardiomediastinal silhouette is otherwise normal. GUS: The gus are normal. PLEURA: There is blunting of the right costophrenic angle. LUNG PARENCHYMA: There is persistent confluent alveolar opacification of the right lung base. ABDOMEN: The upper abdomen is clear. There is no subphrenic gas. BONES AND SOFT TISSUES: No bone or soft tissue abnormalities are noted. OTHER: None. IMPRESSION: PERSISTENT SMALLER RIGHT PLEURAL EFFUSION WITH RIGHT BASILAR CONSOLIDATION. <Electronically signed by Faisal Gonzalez MD in OV> 05/07/17818 Dictated By: Faisal Gonzalez MD Dictated Date/Time: 05/07/17818 Transcribed Date/Time: 01/04/18 0818 Copy to: CC:Wyatt Lentz RPA-C; Gage Malik MD; Kolton Baldwin MD; Nima WREN Imaging - [facility] Imaging - [facility] Imaging - [facility] [id number] [place] [id number] [place] [id number] ph [phone]) ph [phone] ph [phone]) 1 of 1 Assess/Plan/Problems-Billing Assessment: This is an 87 year old male with PM hx significant for CHF, Dementia, and PNA who presents with recurrence of PNA, failed outpatient tx, now on on IV Zosyn. - Patient Problems (1) DNR (do not resuscitate) Comment: - Per record, no heroic measures (2) DVT prophylaxis Code(s): SCT0906 - SNOMED Code(s): 724438966 Comment: - SQ Heparin Q8h (3) Pneumonia Code(s): J18.9 - PNEUMONIA, UNSPECIFIED ORGANISM SNOMED Code(s): 782571543 Comment: - Failed outpatient tx - Treat empirically for CAP with zosyn - follow cultures, influenza negative - Monitor temps, WBCs trending down (4) Afib Current Visit: No Status: Chronic Code(s): I48.91 - UNSPECIFIED ATRIAL FIBRILLATION SNOMED Code(s): 79882246 Comment: - History of PAF - Continue metoprolol daily and ASA (5) Systolic CHF Code(s): I50.20 - UNSPECIFIED SYSTOLIC (CONGESTIVE) HEART FAILURE SNOMED Code( s): 096850679 Comment: - Does not appear fluid overloaded - Daily weights - Lasix PRN (s/p 2 doses IV on 05/07 and 05/08), metoprolol daily - ECHO with no new pathology (6) CKD (chronic kidney disease) stage 3, GFR 30-59 ml/min Code(s): N18.3 - CHRONIC KIDNEY DISEASE, STAGE 3 (MODERATE) SNOMED Code(s): 852831558 Comment: - With OLAYINKA, likely 2/2 diuresis last two days - Monitor renal function daily (7) Dementia Code(s): F03.90 - UNSPECIFIED DEMENTIA WITHOUT BEHAVIORAL DISTURBANCE SNOMED Code(s): 83392588 Comment: - At baseline, continue supportive care (8) HTN (hypertension) Code(s): I10 - ESSENTIAL (PRIMARY) HYPERTENSION SNOMED Code(s): 81978811 Comment: - BP stable on metoprolol Status and Disposition: Remain inpatient for IV antibiotic tx. Counseling and/or Coordination of Care Minutes: Coordinated with staff.
[2017-05-09] MEDS: Aspirin EC Low Dose* 81 MG TAB.EC PO SCH (09:31)
[2017-05-09] MEDS: Magnesium Oxide TAB* 400 MG PO SCH (09:31)
[2017-05-09] MEDS: Docusate CAP* 100 MG PO SCH ×2 (09:31→20:35)
[2017-05-09] MEDS: Metoprolol Succinate XL TAB* 25 MG PO SCH (09:31)
[2017-05-09 10:21] LABS: ABS Basophils 0 10^3/ul (0-0.2); ABS Eosinophils 0 10^3/ul (0-0.6); ABS Lymphocytes 0.2 10^3/ul (1.0-4.8); ABS Monocytes 0.6 10^3/ul (0-0.8); ABS Neutrophils 5.1 10^3/ul (1.5-7.7); ABS Nucleated RBC 0 10^3/ul; Eosinophil % 0 % (0-6); Hematocrit 39 % (42-52); Hemoglobin 12.2 g/dl (14.0-18.0); Lymphocyte % 3.5 % (25-47); Mean Corpuscular HGB Conc 31 g/dl (31-36); Mean Corpuscular Hemoglobin 27 pg (27-31); Mean Corpuscular Volume 87 fL (80-94); Mean Platelet Volume 8 um3 (7.4-10.4); Nucleated Red Blood Cells % 0; Platelet Count 147 10^3/ul (150-450); Red Blood Count 4.51 10^6/ul (4.0-5.4); Red Cell Distribution Width 19 % (10.5-15); White Blood Count 5.9 10^3/ul (3.5-10.8)
[2017-05-09 10:46] LABS: EGFR Non-African American 30.6 (>60)
[2017-05-09] MEDS ORDERED: Magnesium Sulfate 1 GM IV* 1 GM/100 ML BAG IV ONE (13:32)
[2017-05-09] MEDS ORDERED: Digoxin IV* 0.5 MG/2 ML AMP (0.25 MG/ML) IV SLOW PU ONE (13:39)
[2017-05-09] MEDS ORDERED: NS 0.9% 1000 ML* 1,000 ML IV ONE (13:40)
[2017-05-09] MEDS ORDERED: Adenosine* 3 MG/ML VIAL IV PUSH ONE (14:04)
[2017-05-09] MEDS ORDERED: Adenosine* 3 MG/ML VIAL ONE ×2 (14:13→19:00)
[2017-05-09] MEDS ORDERED: Metoprolol Succinate XL TAB* 25 MG PO SCH (14:36)
--- NOTE | 2017-05-09 16:31 | CONS ---
CONSULTATION REPORT: DATE OF CONSULT: 05/09/17 INDICATION FOR CONSULTATION: SVT. HISTORY OF PRESENT ILLNESS: The patient is an 87-year-old gentleman with a history of severe dementi a. I had actually had this patient years ago as a patient for SVT and atrial arrhythmias. I have no t seen him in 5 years because of his severe dementia. The patient was admitted to the hospital with pneumonia. He was getting IV antibiotics. The patient was noted to be tachycardic at 130 beats per minute. He was also hypotensive. I was called to see him urgently. On arrival, the patient's heart rate was 130 with wide complex tachycardia most consistent with a right bundle-branch block. The pat ient was awake and talking. He was clearly confused, which is his baseline. His blood pressure was 90/50. His respiratory rate was 22. The patient is DNR/DNI. Thus, no other interventions were appr opriate. The decision was to give the patient 6 mg of adenosine, which was done. The patient was gi robb 6 mg of adenosine and he converted to a normal sinus rhythm. RECOMMENDATIONS: Recommendation at this time is to increase his beta iveth medications to help pre vent further episodes of SVT. This case was discussed with Dr. Pratt. [id number]/[facility] #: [id number]
[2017-05-09] MEDS ORDERED: Furosemide IV* 10 MG/ML 2 ML VIAL (20 MG) IV ONE (19:22)
--- NOTE | 2017-05-09 19:26 | PN ---
Progress Note - Progress Note Date of Service: 05/09/17 Note: Pt was noted to have another SVT that resolved spontaneously, but later on was more lethargic with shallow breathing. It as decided to transfer pt to ICU for Vapotherm tx. PCX and ABG pending. Currently 02 sat 100% on NRB mask. Message left for son Corey to call back([phone])
[2017-05-09] MEDS ORDERED: Furosemide IV* 10 MG/ML 2 ML VIAL (20 MG) ONE (19:41)
--- NOTE | 2017-05-09 19:49 | RAD ---
INDICATION: Respiratory failure. COMPARISON: Comparison is made with a prior study from May 07, 2017. TECHNIQUE: A portable view of the chest was obtained. FINDINGS: The heart is moderately enlarged and unchanged. There is a right basilar infiltrate and small pleural effusion which have progressed slightly. IMPRESSION: RIGHT BASILAR INFILTRATE AND SMALL PLEURAL EFFUSIONS DEMONSTRATING SLIGHT PROGRESSION.
[2017-05-09] MEDS ORDERED: LORazepam INJ* 2 MG/ML 1 ML VIAL IV PRN (20:07)
[2017-05-09] MEDS: Atorvastatin* 10 MG TAB PO SCH (20:35)
[2017-05-10] MEDS: Omeprazole CAP* 20 MG PO SCH (06:00)
[2017-05-10] MEDS: Heparin VIAL(*) 5000 UNITS/ML VIAL (FIVE THOUSAND) SUBCUT SCH ×3 (06:00→22:50)
[2017-05-10] MEDS: Piperacillin/Tazobac ADVAN(*) 3.375 GM in NS 0.9% 100 ML* 100 ML IVPB SCH ×3 (06:01→22:50)
[2017-05-10 06:44] LABS: ABS Basophils 0 10^3/ul (0-0.2); ABS Eosinophils 0 10^3/ul (0-0.6); ABS Lymphocytes 0.3 10^3/ul (1.0-4.8); ABS Monocytes 0.5 10^3/ul (0-0.8); ABS Nucleated RBC 0 10^3/ul; Eosinophil % 0.1 % (0-6); Hematocrit 35 % (42-52); Hemoglobin 11.1 g/dl (14.0-18.0); Lymphocyte % 4.4 % (25-47); Mean Corpuscular HGB Conc 32 g/dl (31-36); Mean Corpuscular Hemoglobin 28 pg (27-31); Mean Corpuscular Volume 87 fL (80-94); Mean Platelet Volume 8 um3 (7.4-10.4); Nucleated Red Blood Cells % 0; Platelet Count 121 10^3/ul (150-450); Red Blood Count 3.99 10^6/ul (4.0-5.4); Red Cell Distribution Width 19 % (10.5-15); White Blood Count 5.8 10^3/ul (3.5-10.8)
[2017-05-10] MEDS: Docusate CAP* 100 MG PO SCH ×2 (10:54→20:51)
[2017-05-10] MEDS: Aspirin EC Low Dose* 81 MG TAB.EC PO SCH (10:54)
[2017-05-10] MEDS: Magnesium Oxide TAB* 400 MG PO SCH (10:54)
--- NOTE | 2017-05-10 12:56 | PN ---
Progress Note - Progress Note Date of Service: 05/10/17 Note: CRITICAL CARE MEDICINE Date: 05/10/17 Time: 1135 SUBJECTIVE: Patient seen and examined. PHYSICAL EXAM: appears weak Vital Signs: Reviewed. Neurologic: awakens some and nursing was able to have him take liquids early; not conversive with me. HEENT: pupils equal. Sclera icteric. Trachea midline. Cardiovascular: distant, S1 S2 Respiratory: rhonchi bl; no distress, nor expected cough or thrive Abdomen: Soft, nt Extremities: Warm. Access: piv LABS: Reviewed. IMAGING: Reviewed. MEDICATIONS: Reviewed. ASSESSMENT: 87 M Acute hypoxic and hypercarpnic resp failure COPD Mod-severe pulm htn CKD 3-4 Tx for pna Dementia WCT - responding to adenosine PLAN: Neurologic: weak and lethargic. avoid sedatives if able. Cardiovascular: perfusing; slow afib. vol status interstitially up yet intravascular still just ok. See if he can mobilize while keep R heart patent. Respiratory: NC 6L Was placed on bipap to no real beneift. pH is tolerable. Cannot see why he is unable to ventilate on his own, other then failure to thrive. Would ensure lytes etc are ok and not inhibited by rx and give him time. can avoid bipap rescue for now. nebs continued. Gastrointestinal: not going to clair emuch by mouth. allow his appetite to dictate. Renal/Metabolic: renal function is poor and may suffer given his events of yesterday. hightower. time. Infectious Disease: on zosyn for now but no overt new infiltrate. more likely aspiration, acute on chronic. Hematology: stable. hsq Endocrine: ok Musculoskeletal: deconditioned. Psych/Social: family, son and daughter updated at length and expressed understanding. Supportive and preventative care as ordered. SUP: po VTE prophylaxis: heparin Hightower catheter given critical illness, monitoring needs for accurate assessment of OLAYINKA and KDIGO criteria for critically ill patients and to avoid potential harms of urinary retention, skin breakdown/ulcers. Disposition: ICU Code Status: DNR, DNI Critical Care Time: 25min Jerald Rajput DO
[2017-05-10] MEDS ORDERED: Amiodarone IV VIAL* 0 ML ONE (19:51)
[2017-05-10] MEDS ORDERED: Amiodarone 360 MG IVPREMIX* 0 MG/0 ML BAG IV ONE (19:51)
[2017-05-10] MEDS ORDERED: Adenosine* 3 MG/ML VIAL IV ONE ×2 (20:28→21:53)
[2017-05-10] MEDS ORDERED: Metoprolol Tartrate IV* 1 MG/ML 5 ML VIAL ONE (20:31)
[2017-05-10] MEDS ORDERED: Metoprolol Tartrate IV* 1 MG/ML 5 ML VIAL IV ONE (20:32)
[2017-05-10] MEDS: Atorvastatin* 10 MG TAB PO SCH (20:51)
[2017-05-10] MEDS ORDERED: Adenosine* 3 MG/ML VIAL ONE (21:53)
[2017-05-11] MEDS ORDERED: Atropine 1% (ORAL/SL)* 15 ML BTL SL PRN (00:11)
[2017-05-11 01:11] VITALS: BP 100/64
[2017-05-11] MEDS ORDERED: Morphine INJ* 2 MG/ML 1 ML SYRINGE (TWO MG - NEW SYRINGE VERSION) IV PRN (02:00)
--- NOTE | 2017-05-11 06:00 | DS ---
Date of Admission: 05/06/2017 Date of Discharge: 05/11/2017 Discharge Diagnoses Acute hypoxic hypercarbic respiratory failure COPD R basilar pneumonia HPI Mr Figueroa is an 87YO male resident of [facility] HX moderate dementia & CHF who [place] [facility] [place] for pneumonia with hypoxia who returns this evening with report of hypoxia & generalized weakness. Mr Figueroa is unable to contribute to this H&P beyond current status information. Currently he reports feeling 'fine'. He denies SOB, chest pain, palpitations, N/V, F/C, cough, congestion, or other issues. WBCs are 11.9k 95.2% neutrophils, Na 127, K 5.2, UA negative, influenza negative. CXR shows persistent, but improved R basilar pneumonia. Hospital Course Mr Figueroa was admitted, given IVFs & ABX, but despite this developed decompensating cardiopulmonary dynamics with SVT & increasing frequency of wide- complex tachycardia experienced rapid and severe functional and cognitive declines. Early in the overnight shift 05/10-05/11 he had escalating arrhythmias which broke with repeated adenosine which he found highly uncomfortable. I called and spoke with his son who had seen him earlier in the day and was aware of his poor prognosis and quite surprised at his decline as he had not been able to see him for several days due to being snowed in. He stated his father would not want this and so was offered non-escalation vs strict comfort-only. Questions were sought and answered to his satisfaction and he requested strict comfort-only measures. We complied with this and Mr Figueroa experienced a more rapid than expected decline passing very comfortably at 0542 05/11/2017. Discharge Exam absent carotid & radial pulses, absent respirations, asystole in 2 leads Time for Discharge: <30min
== END 2017-05-11 05:42 | disposition expired | DRG 193 ==
LOC: ED 21:49 → MEDTELE 05-06 00:57 → MED 05-08 18:42 → MEDTELE 05-09 16:13 → ICU 05-09 19:15
PROVIDERS: ADMIT Hospitalist; ATTEND Hospitalist
DX: J18.9 Pneumonia, unspecified organism (principal); J96.02 Acute respiratory failure with hypercapnia; J96.01 Acute respiratory failure with hypoxia; N18.4 Chronic kidney disease, stage 4 (severe); I50.20 Unspecified systolic (congestive) heart failure; I27.20 Pulmonary hypertension, unspecified; I47.1 Supraventricular tachycardia; I13.0 Hypertensive heart and chronic kidney disease with heart failure and stage 1 through stage 4 chronic kidney disease, or unspecified chronic kidney disease; I48.0 Paroxysmal atrial fibrillation; J44.9 Chronic obstructive pulmonary disease, unspecified; F03.90 Unspecified dementia, unspecified severity, without behavioral disturbance, psychotic disturbance, mood disturbance, and anxiety; E78.5 Hyperlipidemia, unspecified; I45.10 Unspecified right bundle-branch block; N40.0 Benign prostatic hyperplasia without lower urinary tract symptoms; Z66 Do not resuscitate; S05.11XA Contusion of eyeball and orbital tissues, right eye, initial encounter; W06.XXXA Fall from bed, initial encounter; Y92.230 Patient room in hospital as the place of occurrence of the external cause; Z79.899 Other long term (current) drug therapy; Z79.1 Long term (current) use of non-steroidal anti-inflammatories (NSAID); Z79.82 Long term (current) use of aspirin; Z87.891 Personal history of nicotine dependence
CPT/HCPCS: 36415; 36600; 70450; 71045; 71046; 80048; 80053; 81003; 81015; 82803; 83605; 83735; 84484; 85025; 85610; 85730; 86140; 87040; 87502; 93005; 94640; 94660; 94760; 99284; A9270-GY; J0153; J0282; J1160; J1644; J1940; J2060; J2270; J2543; J3475; J3490